=== PATIENT | male | born 1965 | race Two or more races ===

== ENCOUNTER 2020-09-26 19:55 | Emergency (ER) | payer MEDICARE, MEDICAID, SELFPAY ==
[2020-09-26 20:06] VITALS: BP 170/85; PULSE 63; RESP 20; TEMP 37.1; O2SAT 96; BMI 43.0
--- NOTE | 2020-09-26 21:11 | ED_ITS ---
HPI - Fall General Chief Complaint: Fall Stated Complaint: Fall Time Seen by Provider: 09/26/20 21:11 Mode of arrival: ambulatory Limitations: no limitations History of Present Illness HPI Narrative: Patient mentally challenged from residential with chronic back problems tripped on recliner and fell 3 hours ago landed on his right shoulder hitting his forehead to the ground no loss of consciousness able to move his right arm brought here a medical checkup MD complaint: fall Onset (ago): hour(s) (3) Fall from: standing Fall witnessed: yes, by living facility staff Place fall occurred: home Loss of consciousness: none Symptoms prior to fall: none Context: tripped/slipped Location of injury: head Location of injury - extremities: right: shoulder Severity: mild Quality: dull Associated symptoms (after fall): denies Related Data Previous Rx's Medication Instructions Recorded mirabegron 50 mg tablet,extended 50 mg PO DAILY #28 tab 08/30/20 release 24 hr Allergies Allergy/AdvReac Type Severity Reaction Status Date / Time No Known Allergies Allergy Unverified 06/23/20 15:09 [No Known Allergies*] Review of Systems Review of Systems: Yes all other systems are reviewed and are negative [facility] Past Medical History Medical History Diabetes mellitus type 1 Hypertension Social History Social History Alcohol intake: unknown Smoking Status: Smoker, status unknown Last Used Substance: Unknown Advance Directives: No Advance Directives Information Provided: No Physical Exam Vital Signs: Vital Signs: Last Vital Signs Temp 98.8 F 09/26/20 20:06 Pulse 63 09/26/20 20:06 Resp 20 09/26/20 20:06 BP 170/85 H 09/26/20 20:06 Pulse Ox 96 09/26/20 20:06 Body Mass Index 43.0 Appearance: Alert. Oriented X2 slow to response. No acute distress. Eyes: Pupils equal, round and reactive to light. ENT: Pharynx normal. Small abrasion on right side of forehead Neck: Normal inspection. Neck supple. No midline tenderness CVS: Normal heart rate and rhythm. Pulses normal. Respiratory: No respiratory distress. Breath sounds normal. Abdomen: Soft and nontender. Bowel sounds are present, no mass palpable, no CVA tenderness Skin: Skin warm and dry. Normal skin color. Normal skin turgor. back: No thoracolumbar tenderness patient able to stand up taking few short step as usual Extremities: No lower extremity edema. Right shoulder good range of movement soft tissue tenderness at the deltoid area neurovascular intact Neuro: Oriented X 3. No motor deficit. No sensory deficit. MDM - Fall MDM Narrative Medical decision making narrative: Patient with minor injuries to the right shoulder clinically no fracture x-ray negative for fracture discharge patient back to residential Lab Data Attestation: I reviewed the patient's lab results. Labs: Lab Results 09/26/20 Range/Units 22:08 POC Glucose 105 (60-115) mg/dL Discharge Plan Discharge Clinical Impression: Contusion of right shoulder Patient Disposition: Home, Self-Care Instructions: Contusion in Adults (ED) Additional Instructions: Apply ice take ibuprofen for pain as needed Prescriptions: No Action mirabegron [Myrbetriq] 50 mg tablet extended release 24 hr 50 mg PO DAILY Qty: 28 RF: 3 Interventions: ED Discharge Assessment Last Done: 09/26/20 22:26 Discharge Date/Time: 09/26/20 22:28
--- NOTE | 2020-09-26 21:37 | XR_ITS ---
EXAMINATION: XR SHOULDER, RIGHT CLINICAL INFORMATION: Fall. COMPARISON: None TECHNIQUE: Three views of the right shoulder. FINDINGS: The bones and soft tissues are normal. No fracture. Glenohumeral and acromioclavicular alignment is anatomic with normal joint space. No abnormal soft tissue calcifications. XR/XR shoulder RT min 2V IMPRESSION: Normal right shoulder.
[2020-09-26] MEDS: Ibuprofen 600 MG TABLET PO (22:03)
[2020-09-26 22:13] LABS: Glucose, Whole Blood 105 mg/dL (60-115)
== END 2020-09-26 22:28 | disposition home or self-care (01) ==
PROVIDERS: Emergency Provider Internal Medicine; PCP Family Medicine
DX: S40.011A Contusion of right shoulder, initial encounter (principal); W01.198A Fall on same level from slipping, tripping and stumbling with subsequent striking against other object, initial encounter; E10.8 Type 1 diabetes mellitus with unspecified complications; I10 Essential (primary) hypertension; Y93.9 Activity, unspecified; Y92.049 Unspecified place in boarding-house as the place of occurrence of the external cause; Y99.9 Unspecified external cause status
CPT/HCPCS: 73030; 82947; 99284

== ENCOUNTER 2021-03-26 12:12 | Emergency (ER) | payer MEDICARE, MEDICAID, SELFPAY ==
--- NOTE | ~2021-03-26 | XR_ITS ---
EXAMINATION: XR LUMBAR SPINE XR SACRUM AND COCCYX CLINICAL INFORMATION: Injury. COMPARISON: None TECHNIQUE: Lumbar spine, 3 views Sacrum and coccyx, 2 views FINDINGS: LUMBAR SPINE: There are six nonrib-bearing lumbar vertebra. The lowest vertebral body is considered L5 for this report. Multilevel facet arthropathy of the lumbar spine. Prior placement of transpedicular screws and posterior fusion rods at the L4-L5 level. No osteolysis around the hardware. Chronic grade 1 anterolisthesis of L4 on L5. The vertebral body heights are normal. Multilevel degenerative disc space narrowing of the lumbar spine. SACRUM AND COCCYX: Sacral ala, foramina and sacroiliac joints are intact. No evidence of sacral or coccygeal fracture. XR/XR sacrum coccyx min 2V IMPRESSION: * No acute traumatic pathology in the lumbar spine, sacrum or coccyx. * Chronic multilevel facet arthropathy and discovertebral degenerative changes of lumbar spine. * Intact posterior fusion hardware is noted at the L4-L5 level, and there is chronic grade 1 anterolisthesis of L4 on L5.
--- NOTE | ~2021-03-26 | XR_ITS ---
EXAMINATION: XR LUMBAR SPINE XR SACRUM AND COCCYX CLINICAL INFORMATION: Injury. COMPARISON: None TECHNIQUE: Lumbar spine, 3 views Sacrum and coccyx, 2 views FINDINGS: LUMBAR SPINE: There are six nonrib-bearing lumbar vertebra. The lowest vertebral body is considered L5 for this report. Multilevel facet arthropathy of the lumbar spine. Prior placement of transpedicular screws and posterior fusion rods at the L4-L5 level. No osteolysis around the hardware. Chronic grade 1 anterolisthesis of L4 on L5. The vertebral body heights are normal. Multilevel degenerative disc space narrowing of the lumbar spine. SACRUM AND COCCYX: Sacral ala, foramina and sacroiliac joints are intact. No evidence of sacral or coccygeal fracture. XR/XR lumbar spine 2-3V IMPRESSION: * No acute traumatic pathology in the lumbar spine, sacrum or coccyx. * Chronic multilevel facet arthropathy and discovertebral degenerative changes of lumbar spine. * Intact posterior fusion hardware is noted at the L4-L5 level, and there is chronic grade 1 anterolisthesis of L4 on L5.
[2021-03-26 12:21] VITALS: BP 160/77; BP 170/90; PULSE 60; PULSE 64; RESP 16; TEMP 36.9; O2SAT 96; BMI 36.9
--- NOTE | 2021-03-26 12:31 | ED.BACK ---
HPI - Back Pain/Injury General Chief Complaint: Back Pain/Injury Stated Complaint: BACK PAIN S/P FALL SATURDAY Time Seen by Provider: 03/26/21 12:31 History of Present Illness HPI Narrative: Patient complains of low back pain after a fall several days ago where he slipped and fell from a standing position onto his back, pain is worse today, patient lives in a [place] [facility] and is accompanied by staff member, there is no weakness no incontinence no radiation of pain, no other injury from the fall no headache no neck pain no extremity injury He uses a walker at baseline and staff says he has not lost any mobility and is ambulating normal for him Related Data Previous Rx's Medication Instructions Recorded mirabegron 50 mg tablet,extended 50 mg PO DAILY 90 Days #90 tab 01/18/21 release 24 hr oxybutynin chloride 15 mg 15 mg PO BID 90 Days #180 tab 02/15/21 tablet,extended release 24 hr acetaminophen 1,000 mg PO QID PRN #30 tab 03/26/21 ibuprofen 600 mg PO Q6H PRN #20 tab 03/26/21 lidocaine 1 patch TOPICAL DAILY PRN 5 Days 03/26/21 #15 ea Allergies Allergy/AdvReac Type Severity Reaction Status Date / Time No Known Allergies Allergy Unverified 06/23/20 15:09 [No Known Allergies*] Review of Systems Review of Systems: Positive for back pain negatives are no fever no chills no dizziness no weakness no fainting no feeling faint no headache no neck pain no numbness weakness or tingling no incontinence no radiation of pain no changes to bowel or bladder no dysuria no chest pain no abdominal pain no rash Yes all other systems are reviewed and are negative [facility] Past Medical History Source: nursing notes reviewed Medical History Diabetes mellitus type 1 Hypertension Social History Social History Alcohol intake: unknown Advance Directives: No Advance Directives Information Provided: No Physical Exam Vital Signs: Vital Signs: Last Vital Signs Temp 98.4 F 03/26/21 12:21 Pulse 60 03/26/21 12:21 Resp 16 03/26/21 12:21 BP 160/77 H 03/26/21 12:21 Pulse Ox 96 03/26/21 12:21 Body Mass Index 36.9 General appearance is no acute distress Head is normocephalic atraumatic Neck is supple and nontender Chest wall nontender The back there is lower lumbar tenderness including the midline as well as bilateral soft tissue tenderness, no ecchymosis no rash no deformity no CVA tenderness Extremities no tenderness swelling or deformity Neuro no gross motor or sensory deficit, gait was tested with his walker and is able to get out of bed and ambulate to the bathroom comfortably with his walker Course Course Course Narrative: Lumbar spine and coccyx x-rays were negative but did show some arthritis The patient was observed ambulating to the bathroom and his senior clinical data coordinator from the [place] [facility] says this is his baseline and now he normally ambulates He is discharged back to the [place] [facility] with treatment for musculoskeletal pain Discharge Plan Discharge Clinical Impression: Strain of lumbar region Patient Disposition: Home, Self-Care Additional Instructions: I wrote for Tylenol and Motrin for basic pain control along with a lidocaine patch Follow with primary doctor Return to the ER any time any worse condition or any concerns X-rays did show some arthritis but no broken bone or new injury to the bones Prescriptions: New acetaminophen 500 mg tablet 1,000 mg PO QID PRN (Reason: pain) Qty: 30 RF: 0 ibuprofen 600 mg tablet 600 mg PO Q6H PRN (Reason: pain) Qty: 20 RF: 0 lidocaine 5 % adhesive patch,medicated 1 patch topical DAILY PRN (Reason: pain) 5 Days Qty: 15 RF: 0 No Action Myrbetriq 50 mg tablet extended release 24 hr 50 mg PO DAILY 90 Days Qty: 90 RF: 2 oxybutynin chloride 15 mg tablet extended release 24 hr 15 mg PO BID 90 Days Qty: 180 RF: 2
[2021-03-26] MEDS: Acetaminophen 325 MG TABLET 975 MG PO (14:09)
[2021-03-26] MEDS: Ketorolac Tromethamine 30 MG/ML VIAL IM (14:10)
== END 2021-03-26 14:15 | disposition home or self-care (01) ==
PROVIDERS: Emergency Provider Emergency Medicine; PCP Family Medicine
DX: S39.012A Strain of muscle, fascia and tendon of lower back, initial encounter (principal); E10.9 Type 1 diabetes mellitus without complications; I10 Essential (primary) hypertension; W01.0XXA Fall on same level from slipping, tripping and stumbling without subsequent striking against object, initial encounter; Y93.9 Activity, unspecified; Y92.89 Other specified places as the place of occurrence of the external cause; Y99.9 Unspecified external cause status
CPT/HCPCS: 72100; 72220; 96372; 99283; 99284; J1885

== ENCOUNTER → 2021-04-13 09:53 | Outpatient (BNVA) | payer MEDICARE, MEDICAID, SELFPAY | PROVIDERS: PCP Family Medicine; Visit Provider Urology | DX: N39.41 Urge incontinence (principal); N32.0 Bladder-neck obstruction | CPT/HCPCS: 99212 ==

== ENCOUNTER → 2021-06-30 12:36 | Outpatient (BNVA) | payer MEDICARE, MEDICAID, SELFPAY | PROVIDERS: PCP Family Medicine; Visit Provider Dietitian, Registered | DX: E66.9 Obesity, unspecified (principal) | CPT/HCPCS: 97803 ==

== ENCOUNTER 2021-07-15 18:52 | Emergency (ER) | payer MEDICARE, MEDICAID, SELFPAY ==
--- NOTE | ~2021-07-15 | US_ITS ---
EXAMINATION: US SCROTUM CLINICAL INFORMATION: Left testicle pain. COMPARISON: None TECHNIQUE: A sonogram of the scrotum was performed assessing medina-scale appearance and color Doppler flow. Spectral Doppler analysis of the arterial and venous flow were performed in the testes bilaterally. FINDINGS: RIGHT: Right testicle measures 3.7 x 1.8 x 2.1 cm, volume 7.5 mL. No focal testicular parenchymal lesions are visualized. Spectral Doppler analysis of the arterial and venous flow is normal in the right testis. Right epididymal head is normal in size. No right hydrocele or varicocele is seen. Right epididymal Doppler flow is normal. LEFT: Left testicle measures 3.3 x 1.7 x 2.1 cm, volume 6 mL. No focal testicular parenchymal lesions are visualized. Spectral Doppler analysis of the arterial and venous flow is normal in the left testis. Left epididymal head is normal in size. No left hydrocele or varicocele is seen. Left epididymal Doppler flow is normal. US/US scrotum doppler IMPRESSION: Unremarkable ultrasound of the testes.
--- NOTE | ~2021-07-15 | US_ITS ---
EXAMINATION: US SCROTUM CLINICAL INFORMATION: Left testicle pain. COMPARISON: None TECHNIQUE: A sonogram of the scrotum was performed assessing medina-scale appearance and color Doppler flow. Spectral Doppler analysis of the arterial and venous flow were performed in the testes bilaterally. FINDINGS: RIGHT: Right testicle measures 3.7 x 1.8 x 2.1 cm, volume 7.5 mL. No focal testicular parenchymal lesions are visualized. Spectral Doppler analysis of the arterial and venous flow is normal in the right testis. Right epididymal head is normal in size. No right hydrocele or varicocele is seen. Right epididymal Doppler flow is normal. LEFT: Left testicle measures 3.3 x 1.7 x 2.1 cm, volume 6 mL. No focal testicular parenchymal lesions are visualized. Spectral Doppler analysis of the arterial and venous flow is normal in the left testis. Left epididymal head is normal in size. No left hydrocele or varicocele is seen. Left epididymal Doppler flow is normal. US/US scrotum IMPRESSION: Unremarkable ultrasound of the testes.
[2021-07-15 19:08] VITALS: BP 155/77; PULSE 66
--- NOTE | 2021-07-15 19:20 | ED.GENADULT ---
HPI - General Adult General Chief complaint: Fall Stated complaint: GENITAL PAIN S/P FALL,-LOC Time Seen by Provider: 07/15/21 19:05 Source: patient and other (assisted staff member) Mode of arrival: ambulatory Limitations: no limitations History of Present Illness HPI narrative: 55-year-old male with history of developmental delay who lives in a intermediate who presents emergency department for evaluation of left testicular pain. The patient states that the pain started this evening but cannot give me an exact time. He describes the pain as sharp, constant and severe, he points to his left testicle when asked to localize the pain. Apparently the pain was very severe when he was at the intermediate and this caused him the lie down on the floor. The patient denies falling. He denies frequency, urgency or dysuria. He denies fever or chills. According to the intermediate member, the patient has not complained of testicular pain in the past. Related Data Home Medications Medication Instructions Recorded Confirmed blood sugar diagnostic #10 ea 04/13/21 Previous Rx's Medication Instructions Recorded mirabegron 50 mg tablet,extended 50 mg PO DAILY 90 Days #90 tab 01/18/21 release 24 hr (Myrbetriq) oxybutynin chloride 15 mg 15 mg PO BID 90 Days #180 tab 02/15/21 tablet,extended release 24 hr acetaminophen 500 mg tablet 1,000 mg PO QID PRN #30 tab 03/26/21 ibuprofen 600 mg tablet 600 mg PO Q6H PRN #20 tab 03/26/21 lidocaine 5 % topical patch 1 patch TOPICAL DAILY PRN 5 Days 03/26/21 #15 ea tamsulosin 0.4 mg capsule 0.4 mg PO BEDTIME 90 Days #90 cap 04/13/21 doxycycline hyclate 100 mg tablet 100 mg PO Q12H 10 Days #20 tab 07/15/21 ibuprofen 600 mg tablet 600 mg PO Q6H PRN #30 tab 07/15/21 Allergies Allergy/AdvReac Type Severity Reaction Status Date / Time No Known Allergies Allergy Verified 07/15/21 19:52 [No Known Allergies*] Review of Systems Review of Systems: Yes all other systems are reviewed and are negative PMFSH Past Medical History PMFSH Narrative: Social history: Patient denies tobacco, alcohol and drug use. The patient lives in a intermediate. Medical History Diabetes mellitus type 1 Hypertension Social History Social History Alcohol intake: unknown Advance Directives: No Advance Directives Information Provided: No Physical Exam Vital Signs: Vital Signs: Last Vital Signs Temp 98.7 F 07/15/21 19:46 Pulse 60 07/15/21 19:46 Resp 16 07/15/21 19:46 BP 133/81 07/15/21 19:46 Pulse Ox 99 07/15/21 19:46 Const: General: cooperative and no acute distress Orientation/consciousness: oriented to person and oriented to place Limitations: no limitations HENMT: Head: Yes normal to inspection, Yes normocephalic and Yes atraumatic Ears: external ears normal General nose exam: Normal external nose present Face and sinus: Yes normal facial exam Mouth: Normal oral and palatal mucosa present Throat: Yes posterior oropharynx normal Eyes: General: appearance normal, both eyes and all related structures Pupils: Equal, round and reactive pupils present Neck: Neck: Yes normal visual inspection, Yes no lymphadenopathy, Yes trachea midline and Yes supple Chest: Chest palpation & inspection: normal inspection of the chest and normal palpation of entire chest wall Resp: Effort & Inspection: normal respiratory effort and able to speak in complete sentences Auscultation: clear to auscultation bilaterally Cardio: Rate: regular rate Rhythm: regular rhythm Heart sounds: S1 normal heart sound present, S2 normal heart sound present and no murmurs GI: Inspection: Yes normal to inspection Palpation (GI): Soft to palpation, nontender and no guarding Auscultation: normal bowel sounds : Other: The patient has a small penis and very small testicles bilaterally. The patient does have significant tenderness to palpation of the left testicle, there is no erythema or increased warmth over the scrotum. Patient does have some intertriginous erythema which is bilaterally symmetric. There is no discharge noted from the patient's penile meatus. Patient is uncircumcised. Skin: General skin exam: no rashes or lesions noted Neuro: General: oriented to person and oriented to place Cranial nerves: Yes CN's II-XII intact bilaterally and Yes Equal, round and reactive pupils present Cognition (Neuro): normal cognition Motor exam (neuro): 5/5 motor strength present throughout Extrem: General: Yes normal to inspection Psych: Appearance: grossly normal Speech and movement: Normal speech and movement present Affect: normal affect Attitude: cooperative Thought process: Normal thought process present Thought content: Normal thought content present Course Course Course Narrative: 55-year-old male with developmental delay who lives in a intermediate who presents emergency department for evaluation of sudden onset of left testicular pain. Patient's physical examination did reveal a small penis and small testicles bilaterally, patient does have significant tenderness palpation his left testicle. The differential includes but is not limited to testicular torsion, orchitis, epididymitis, urinary tract infection. Urinalysis was ordered. Testicular and scrotal ultrasound will be obtained. Patient's pain was treated with ibuprofen 600 mg orally. 2051: The patient got minimal relief of his left testicular pain from oral ibuprofen. The patient was ordered to get Tylenol 975 mg orally. The duplex ultrasound did not reveal any evidence for testicular torsion. Given the patient's tenderness and concerned that he might orchitis. The patient will be treated ceftriaxone 500 mg IM and doxycycline 100 mg twice a day for 10 days. Patient will also be treated with ibuprofen 600 mg 3 times a day as needed for pain. Patient was discharged home in the care of his intermediate staff member. Discharge Plan Discharge Clinical Impression: Acute orchitis, Left testicular pain Patient Disposition: Home, Self-Care Instructions: Orchitis (ED) Additional Instructions: Your duplex ultrasound of the testicle revealed no evidence for torsion (twisting of the testicles). Your left testicle was very tender to palpation, this suggests that you have a testicular infection. You received ceftriaxone 500 mg IM. You also received doxycycline 100 mg orally. Take doxycycline 100 mg twice a day for 10 days, this will treat an infection of your testicle. Take Motrin ( ibuprofen) 600 mg pills, 1 pill every 6 hours as needed. Follow-up with your doctor in 2 days. Please return to the emergency department if your symptoms get worse or if you develop any symptoms that are concerning to you. Prescriptions: New ibuprofen 600 mg tablet 600 mg PO Q6H PRN (Reason: pain) Qty: 30 RF: 0 doxycycline hyclate 100 mg tablet 100 mg PO Q12H 10 Days Qty: 20 RF: 0 No Action Myrbetriq 50 mg tablet extended release 24 hr 50 mg PO DAILY 90 Days Qty: 90 RF: 2 oxybutynin chloride 15 mg tablet extended release 24 hr 15 mg PO BID 90 Days Qty: 180 RF: 2 acetaminophen 500 mg tablet 1,000 mg PO QID PRN (Reason: pain) Qty: 30 RF: 0 ibuprofen 600 mg tablet 600 mg PO Q6H PRN (Reason: pain) Qty: 20 RF: 0 lidocaine 5 % adhesive patch,medicated 1 patch topical DAILY PRN (Reason: pain) 5 Days Qty: 15 RF: 0 tamsulosin 0.4 mg capsule 0.4 mg PO BEDTIME 90 Days Qty: 90 RF: 1
[2021-07-15 19:46] VITALS: BP 133/81; PULSE 60; RESP 16; TEMP 37.1; O2SAT 99
[2021-07-15] MEDS: Ibuprofen 600 MG TABLET PO (19:51)
--- NOTE | 2021-07-15 19:53 | PC.NURSE ---
Pt resting on stretcher in NAD, breathing with ease on RA, VSS. Pt aaox4, senior living staff member, Holden, at bedside. Pt report 10/10 L testicular pain. Pt offers no additional complaints at this time. Pt medicated per DEC with ibuprofen. Pt to US at this time. This RN to order UA per Dr Harris's recommendation. Pt agreeable to plan.
--- NOTE | 2021-07-15 20:58 | PC.NURSE ---
Per Dr Harris, pt does not need UA
[2021-07-15] MEDS: cefTRIAXone sodium 500 MG, Lidocaine HCl 1 % MPF 1 ML IM (21:07)
[2021-07-15] MEDS: Acetaminophen 325 MG TABLET 975 MG PO (21:08)
[2021-07-15 21:22] VITALS: BP 132/87; PULSE 58; RESP 16; O2SAT 98
== END 2021-07-15 21:28 | disposition home or self-care (01) ==
PROVIDERS: Emergency Provider Emergency Medicine Emergency Medical Services
DX: N45.2 Orchitis (principal); N50.812 Left testicular pain; R62.50 Unspecified lack of expected normal physiological development in childhood; Z79.899 Other long term (current) drug therapy
CPT/HCPCS: 76870; 93975; 99284; J0696

== ENCOUNTER → 2021-10-31 11:37 | Outpatient (BNVA) | payer MEDICARE, MEDICAID, SELFPAY | PROVIDERS: PCP Family Medicine; Visit Provider Dietitian, Registered | DX: E66.9 Obesity, unspecified (principal); E10.9 Type 1 diabetes mellitus without complications | CPT/HCPCS: 97803 ==

== ENCOUNTER 2022-01-24 21:43 | Emergency (ER) | payer MEDICARE, MEDICAID, SELFPAY ==
[2022-01-24 22:06] VITALS: BP 118/76; PULSE 53; RESP 18; TEMP 36.7; O2SAT 100; BMI 27.4
--- NOTE | 2022-01-24 22:29 | ED.FALL ---
HPI - Fall General Chief Complaint: Fall Stated Complaint: fell off shower chair in the shower Time Seen by Provider: 01/24/22 22:20 Source: patient and other (Staff member) Mode of arrival: ambulatory Limitations: no limitations History of Present Illness HPI Narrative: 56-year-old male who lives in a skilled nursing who was brought to emergency department for evaluation of injuries from a fall. Information mainly comes from the staff member knows the patient well. Staff member states that she was assisting the patient with showering this morning at 06:30 hours. The patient was sitting in a shower chair and he accidentally had a bowel movement. The patient turned to look at the bowel movement and slipped out of the chair landing onto the shower floor. He then tried to get up and slipped the 2nd time. The patient has no complaints this time. His group staff member states that he was doing fine however as per the skilled nursing routine, the patient needs to be evaluated secondary to his fall. Related Data Home Medications Medication Instructions Recorded Confirmed blood sugar diagnostic #10 ea 04/13/21 Previous Rx's Medication Instructions Recorded acetaminophen 500 mg tablet 1,000 mg PO QID PRN #30 tab 03/26/21 ibuprofen 600 mg tablet 600 mg PO Q6H PRN #20 tab 03/26/21 lidocaine 5 % topical patch 1 patch TOPICAL DAILY PRN 5 Days 03/26/21 #15 ea doxycycline hyclate 100 mg tablet 100 mg PO Q12H 10 Days #20 tab 07/15/21 ibuprofen 600 mg tablet 600 mg PO Q6H PRN #30 tab 07/15/21 mirabegron 50 mg tablet,extended 50 mg PO DAILY 90 Days #90 tab 08/29/21 release 24 hr (Myrbetriq) tamsulosin 0.4 mg capsule 0.4 mg PO BEDTIME 90 Days #90 cap 08/29/21 oxybutynin chloride 15 mg 15 mg PO BID 90 Days #180 tab 10/26/21 tablet,extended release 24 hr Allergies Allergy/AdvReac Type Severity Reaction Status Date / Time No Known Allergies Allergy Verified 07/15/21 19:52 [No Known Allergies*] Review of Systems Review of Systems: Yes all other systems are reviewed and are negative PMFSH Past Medical History PMFSH Narrative: Social history: The patient lives in a skilled nursing. He denies tobacco, alcohol and drug use. Medical History Diabetes mellitus type 1 Hypertension Social History Social History Alcohol intake: unknown Advance Directives: No Advance Directives Information Provided: No Physical Exam Vital Signs: Vital Signs: Last Vital Signs Temp 98.1 F 01/24/22 22:06 Pulse 53 01/24/22 22:06 Resp 18 01/24/22 22:06 BP 118/76 01/24/22 22:06 Pulse Ox 100 01/24/22 22:06 BMI result Body Mass Index 27.4 Const: Other: Very pleasant and cooperative male patient, does not appear to be in distress, has no complaints. HEENT: Head: Yes normal to inspection, Yes normocephalic and Yes atraumatic Ears: external ears normal General nose exam: Normal external nose present Face and sinus: Yes normal facial exam Mouth: Normal oral and palatal mucosa present Throat: Yes posterior oropharynx normal Eyes: General: appearance normal, both eyes and all related structures Pupils: Equal, round and reactive pupils present Neck: Neck: Yes normal visual inspection, Yes no lymphadenopathy, Yes trachea midline and Yes supple Chest: Chest palpation & inspection: normal inspection of the chest and normal palpation of entire chest wall Resp: Effort & Inspection: normal respiratory effort and able to speak in complete sentences Auscultation: clear to auscultation bilaterally Cardio: Rate: regular rate Rhythm: regular rhythm Heart sounds: S1 normal heart sound present, S2 normal heart sound present and no murmurs GI: Inspection: Yes normal to inspection Palpation (GI): Soft to palpation, nontender and no guarding Auscultation: normal bowel sounds : General: Yes no CVA tenderness Back/Spine/Pelvis: Back: no CVA tenderness Skin: General skin exam: no rashes or lesions noted Neuro: Cranial nerves: Yes CN's II-XII intact bilaterally and Yes Equal, round and reactive pupils present Cognition (Neuro): normal cognition Motor exam (neuro): 5/5 motor strength present throughout Extrem: General: Yes normal to inspection Psych: Thought process: Normal thought process present Thought content: Normal thought content present Course Course Course Narrative: 56-year-old male who was brought to emergency department by skilled nursing staff member for evaluation of a fall that occurred this morning at 06:30 hours. The patient was being assisted in the shower and was sitting on a shower chair when he slipped off the chair and landed on the shower floor. He then got up and fell on the shower floor 2nd time. The patient has had no complaints since the injury. His physical examination was unremarkable. At this time I do not think that he needs any x-rays or further testing. The patient will be discharged back to his skilled nursing in the care of the skilled nursing staff member. Discharge Plan Discharge Clinical Impression: Fall Qualifiers: Encounter type: initial encounter Qualified Code(s): W19.XXXA - Unspecified fall, initial encounter Patient Disposition: Home, Self-Care Additional Instructions: Your examination is normal, I do not think that you had any significant injury from your fall today. Continue taking your medications as prescribed by your doctor. Follow-up with your doctor in 2 days. Please return to the emergency department if your symptoms get worse or if you develop any symptoms that are concerning to you. Prescriptions: No Action Myrbetriq 50 mg tablet extended release 24 hr 50 mg PO DAILY 90 Days Qty: 90 2RF tamsulosin 0.4 mg capsule 0.4 mg PO BEDTIME 90 Days Qty: 90 1RF oxybutynin chloride 15 mg tablet extended release 24 hr 15 mg PO BID 90 Days Qty: 180 1RF acetaminophen 500 mg tablet 1,000 mg PO QID PRN (Reason: pain) Qty: 30 0RF ibuprofen 600 mg tablet 600 mg PO Q6H PRN (Reason: pain) Qty: 20 0RF lidocaine 5 % adhesive patch,medicated 1 patch topical DAILY PRN (Reason: pain) 5 Days Qty: 15 0RF Rx Instructions: leave on most painful area for up to 12 hrs ibuprofen 600 mg tablet 600 mg PO Q6H PRN (Reason: pain) Qty: 30 0RF doxycycline hyclate 100 mg tablet 100 mg PO Q12H 10 Days Qty: 20 0RF
== END 2022-01-24 22:46 | disposition home or self-care (01) ==
PROVIDERS: Emergency Provider Emergency Medicine Emergency Medical Services
DX: Z04.3 Encounter for examination and observation following other accident (principal); E10.9 Type 1 diabetes mellitus without complications; I10 Essential (primary) hypertension; Z91.81 History of falling
CPT/HCPCS: 99282; 99283

== ENCOUNTER → 2022-06-29 15:43 | Outpatient (BNVA) | payer MEDICARE, MEDICAID, SELFPAY | PROVIDERS: PCP Family Medicine; Visit Provider Urology | DX: N39.41 Urge incontinence (principal); N32.0 Bladder-neck obstruction | CPT/HCPCS: 99212 ==

== ENCOUNTER 2023-04-12 13:22 | Emergency (ER) | payer MEDICARE, MEDICAID, SELFPAY ==
--- NOTE | 2023-04-12 13:24 | ED_ITS ---
HPI - General Adult General Chief complaint: Extremity Injury, Lower Stated complaint: 04/12 fell/ R knee pain Time Seen by Provider: 04/12/23 14:06 Source: patient Mode of arrival: ambulatory Limitations: no limitations History of Present Illness HPI narrative: 57 yold male presents to the ED for right knee pain after falling in [facility]. patient states he slipped on his shoe which caused him to fall unto his right knee. patient denies hitting head or loss of consciiousness. patient denies any other complaints. long-term health aide corroborates story Related Data Home Medications Medication Instructions Recorded Confirmed blood sugar diagnostic #10 ea 04/13/21 06/29/22 benazepril 40 mg tablet 40 mg PO DAILY 06/28/22 06/29/22 fluoxetine 10 mg capsule 0 mg PO 06/29/22 06/29/22 lancets 28 gauge (Prodigy Twist #100 ea 06/29/22 06/29/22 Top Lancet) levothyroxine 125 mcg tablet 125 mcg PO DAILY 06/29/22 06/29/22 loratadine 10 mg tablet 10 mg PO DAILY 06/29/22 06/29/22 nystatin 100,000 unit/gram topical topical 06/29/22 06/29/22 powder (Nystop) topiramate 25 mg tablet 25 mg PO BID 06/29/22 06/29/22 Previous Rx's Medication Instructions Recorded acetaminophen 500 mg tablet 1,000 mg PO QID PRN pain #30 tabs 03/26/21 ibuprofen 600 mg tablet 600 mg PO Q6H PRN pain #20 tabs 03/26/21 lidocaine 5 % topical patch 1 patch topical DAILY PRN pain 5 03/26/21 days #15 ea doxycycline hyclate 100 mg tablet 100 mg PO Q12H 10 days #20 tabs 07/15/21 ibuprofen 600 mg tablet 600 mg PO Q6H PRN pain #30 tabs 07/15/21 tamsulosin 0.4 mg capsule 0.4 mg PO BEDTIME 90 days #90 caps 08/10/22 oxybutynin chloride 15 mg 15 mg PO BID 30 days #60 tabs 11/20/22 tablet,extended release 24 hr oxycodone 5 mg capsule 5 mg PO TID PRN pain 3 days #9 caps 04/12/23 Allergies Allergy/AdvReac Type Severity Reaction Status Date / Time No Known Allergies Allergy Verified 04/12/23 13:25 [No Known Allergies*] Review of Systems Review of Systems: Right knee pain Yes all other systems are reviewed and are negative [facility] Past Medical History Medical History Diabetes mellitus type 1 Hypertension Social History Social History Alcohol intake: unknown Advance Directives: Yes Advance Directives Information Provided: Yes Advance Directives on File: No Physical Exam ED Vital Signs: Vital Signs - 24 hr 04/12/23 13:25 04/12/23 15:39 Temperature 98 F 98 F Pulse Rate 61 60 Respiratory Rate 15 18 Blood Pressure 141/70 H 188/82 H Pulse Oximetry 97 99 Oxygen Delivery Method Room Air Room Air BMI result Body Mass Index 38.3 Const General: cooperative, healthy appearing, comfortable, no acute distress, well developed, alert, awake and Physically active Orientation/consciousness: oriented to person, oriented to place, oriented to time and patient oriented x3 HENMT Head: Yes normal to inspection, Yes No palpable skull fracture present, Yes normocephalic, Yes atraumatic and No abrasion Ears: hearing grossly normal bilaterally, external ears normal, TM's normal bilaterally, TM normal on the right, TM normal on the left, EAC's normal, mastoids normal and no periauricular adenopathy Eyes General: appearance normal, both eyes and all related structures Neck Neck: Yes normal visual inspection, Yes full ROM, Yes no lymphadenopathy, Yes no meningeal signs, Yes trachea midline, Yes supple, No anterior neck swelling and No tender Chest Chest palpation & inspection: normal inspection of the chest and normal palpation of entire chest wall Resp Effort & Inspection: normal respiratory effort and able to speak in complete sentences Auscultation: clear to auscultation bilaterally Cardio Jugular venous distension: no JVD Heart sounds: S1 normal heart sound present and S2 normal heart sound present GI Inspection: Yes normal to inspection and No abdominal wall ecchymosis Palpation (GI): Soft to palpation, not firm, nontender, no guarding and not rigid General: No CVA tenderness and Yes no CVA tenderness Back/Spine/Pelvis Back: no CVA tenderness, No CVA tenderness and No back tenderness Skin General skin exam: no rashes or lesions noted and elasticity normal Neuro Other: Patient is at baseline mentally General: oriented to person, oriented to place, oriented to time, patient oriented x3, tone normal, moves all extremities, Normal light touch and pain sensation, no meningeal signs, no focal motor deficits, CN's II-XI intact bilaterally and normal sensation to monofilament Extrem General: Yes normal to inspection and Yes full ROM Knee images: 1. positive for ecchyomosis and tenderness. Negative for any redness, swelling, deformity, or stiffenss. Rest of extremity normal. motor, neuro, and vascular exam is intact. Psych Appearance: grossly normal, well kempt and not disheveled Course Course Course Narrative: Patient is a 57 year old male with a history of urinary incontinence, right knee replacement, and obesity presenting post fall. 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 Patient has been experiencing some instability with walking and pain. Patient is not on blood thinners. Patient arrived to triage in a wheelchair. Plan: Imaging Medications Administered Discontinued Medications Generic Name Dose Route Start Last Admin Trade Name Freq PRN Reason Stop Dose Admin Oxycodone HCl 5 mg 04/12/23 19:07 04/12/23 19:12 Oxycodone Hcl Immed Release 5 Mg Tablet PO 04/12/23 19:08 5 mg ONCE ONE Administration Medical Decision Making Medical Decision Making [facility] Narrative: 57 yold male brought to the ED for right knee pain after falling onto right knee which was witnessed. Patient denies hitting head or any loss of consciousness. Patient denies any other complaints. Right knee x-ray shows tibial plateau fracture. Case discussed with orthopedic surgeon SULEMAN Garcia recommend CT scan and the brace. CT scan confirms tibial plateau fracture. Suleman robbins will follow-up as outpatient. Patient discharged with pain medication. Patient and [facility] health aide recommend on non weight-bearing. Patient cannot use crutches so patient will be placed on wheelchair and they were informed to elevate patient's leg off the ground. Differential Diagnosis Differential Diagnoses: The differential diagnosis associated with the presentation includes ( Knee fracture, knee dislocation, septic joint, hematoma,) Admission/Observation Consideration of admission/observation: Escalation of care including admission/observation considered Consult Healthcare Provider Management of the patient was discussed with: Help Desk Team Leader ([facility] SULEMAN) Independent Interpretation I performed an independent interpretation of an: Plain X-Ray and CT Scan Radiology Impression Discussion of test interpretation with radiology: I have reviewed the radiologist's reading. Independent Historian Clinical information obtained from an independent historian. History obtained from or confirmed by: Other (long-term health Aide ) External Record Review External record reviewed: Other (long-term notes) Prescription Management I considered prescription management with: Pain Medication Chronic Conditions MIld Mental Development Dealay Discharge Plan Discharge Clinical Impression: Fracture of tibial plateau Patient Disposition: Home, Self-Care Instructions: Patellar Fracture (ED) Additional Instructions: return to the ED immediately for worsening pain, swelling, redness, bluish black discoloration, numbness /tingling, fever, chills, chest pain, shortness of breath, or any other concerning symptoms. Patient should not walk or bear any weight on right lower extremity. You will need to follow-up with orthopedic milan rgeon Prescriptions: New oxycodone 5 mg capsule 5 mg PO TID PRN (Reason: pain) 3 Days Qty: 9 0RF Rx Instructions: Partial Fill upon patient request. No Action tamsulosin 0.4 mg capsule 0.4 mg PO BEDTIME 90 Days Qty: 90 1RF oxybutynin chloride 15 mg tablet extended release 24hr 15 mg PO BID 30 Days Qty: 60 1RF acetaminophen 500 mg tablet 1,000 mg PO QID PRN (Reason: pain) Qty: 30 0RF ibuprofen 600 mg tablet 600 mg PO Q6H PRN (Reason: pain) Qty: 20 0RF lidocaine 5 % adhesive patch,medicated 1 patch topical DAILY PRN (Reason: pain) 5 Days Qty: 15 0RF Rx Instructions: leave on most painful area for up to 12 hrs ibuprofen 600 mg tablet 600 mg PO Q6H PRN (Reason: pain) Qty: 30 0RF doxycycline hyclate 100 mg tablet 100 mg PO Q12H 10 Days Qty: 20 0RF (DME) FreeStyle Lite Strips Strip See Rx Instructions Not Applicable DAILY Qty: 10 Rx Instructions: As directed benazepril 40 mg tablet 40 mg PO DAILY topiramate 25 mg tablet 25 mg PO BID levothyroxine 125 mcg tablet 125 mcg PO DAILY fluoxetine 10 mg capsule 0 mg PO nystatin [Nystop] 100,000 unit/gram powder topical loratadine 10 mg tablet 10 mg PO DAILY (DME) lancets [Prodigy Twist Top Lancet] 28 gauge misc See Rx Instructions .[facility] Qty: 100 Rx Instructions: As directed Referrals: [facility] Orthopedic Surgeons [Provider Group] (Right posterior tibial platuea fracture) Interventions: ED Discharge Assessment Last Done: 04/12/23 19:33 Discharge Date/Time: 04/12/23 19:50 Print Language: Armenian
[2023-04-12 13:25] VITALS: BP 141/70; PULSE 61; RESP 15; TEMP 36.6; O2SAT 97; BMI 38.3
[2023-04-12 15:39] VITALS: BP 188/82; PULSE 60; RESP 18; TEMP 36.6; O2SAT 99
== END 2023-04-12 19:50 | disposition home or self-care (01) ==
PROVIDERS: Emergency Provider Emergency Medicine Emergency Medical Services; PCP Family Medicine
DX: S82.141A Displaced bicondylar fracture of right tibia, initial encounter for closed fracture (principal); M25.561 Pain in right knee; W01.0XXA Fall on same level from slipping, tripping and stumbling without subsequent striking against object, initial encounter; Y93.9 Activity, unspecified; Y92.9 Unspecified place or not applicable; Y99.9 Unspecified external cause status; Z79.899 Other long term (current) drug therapy
CPT/HCPCS: 73564; 73700; 99283; 99284

== ENCOUNTER 2023-04-15 10:50 | Emergency (ER) | payer MEDICARE, MEDICAID, SELFPAY ==
[2023-04-15 11:04] VITALS: BP 137/64; BP 190/70; PULSE 59; PULSE 67; RESP 16; O2SAT 96; O2SAT 99; BMI 49.9
--- NOTE | 2023-04-15 11:24 | PC.NURSE ---
per ems pt rolled out of bed at 3:30a falling onto his left side, pt A&O and reports no pain at this time.
--- NOTE | 2023-04-15 14:41 | ED.FALL ---
HPI - Fall General Chief Complaint: Fall Stated Complaint: fall 329 from care facility, back pain Time Seen by Provider: 04/15/23 11:27 Source: patient and RN notes reviewed Mode of arrival: ambulatory Limitations: no limitations History of Present Illness HPI Narrative: This is a 57-year-old male, with a past medical history of cerebral palsy, presenting to the emergency department from shelter, for evaluation of fall which occurred during the night at approximately 3:00 a.m.. Staff member reports that patient rolled out of bed and fell. It is unclear how long patient was on the ground for however patient reports that it was only several minutes is calling the front desk receptionist to help him get off the floor. Patient denies hitting head, or loss of consciousness. He denies any headaches, visual changes, nausea, vomiting, or diarrhea. Patient was seen on April 12 after fall, and patient had a tibial plateau fracture. Patient currently in knee immobilizer and has not followed up with Orthopedics. Patient denies any current complaints. MD complaint: fall Onset (ago): hour(s) Fall from: out of bed Fall witnessed: no Place fall occurred: other (long term) Loss of consciousness: none Prolonged down time: minute(s) Symptoms prior to fall: none Related Data Home Medications Medication Instructions Recorded Confirmed blood sugar diagnostic #10 ea 04/13/21 06/29/22 benazepril 40 mg tablet 40 mg PO DAILY 06/28/22 06/29/22 fluoxetine 10 mg capsule 0 mg PO 06/29/22 06/29/22 lancets 28 gauge (Prodigy Twist #100 ea 06/29/22 06/29/22 Top Lancet) levothyroxine 125 mcg tablet 125 mcg PO DAILY 06/29/22 06/29/22 loratadine 10 mg tablet 10 mg PO DAILY 06/29/22 06/29/22 nystatin 100,000 unit/gram topical topical 06/29/22 06/29/22 powder (Nystop) topiramate 25 mg tablet 25 mg PO BID 06/29/22 06/29/22 Previous Rx's Medication Instructions Recorded acetaminophen 500 mg tablet 1,000 mg PO QID PRN pain #30 tabs 03/26/21 ibuprofen 600 mg tablet 600 mg PO Q6H PRN pain #20 tabs 03/26/21 lidocaine 5 % topical patch 1 patch topical DAILY PRN pain 5 03/26/21 days #15 ea doxycycline hyclate 100 mg tablet 100 mg PO Q12H 10 days #20 tabs 07/15/21 ibuprofen 600 mg tablet 600 mg PO Q6H PRN pain #30 tabs 07/15/21 tamsulosin 0.4 mg capsule 0.4 mg PO BEDTIME 90 days #90 caps 08/10/22 oxybutynin chloride 15 mg 15 mg PO BID 30 days #60 tabs 11/20/22 tablet,extended release 24 hr oxycodone 5 mg capsule 5 mg PO TID PRN pain 3 days #9 caps 04/12/23 Allergies Allergy/AdvReac Type Severity Reaction Status Date / Time No Known Allergies Allergy Verified 04/12/23 13:25 [No Known Allergies*] Review of Systems Review of Systems: Constitutional: No Weight loss, No Fever, No Chills, No Night Sweats, No Fatigue, No Malaise ENT/Mouth: No Hearing loss, No Ear Pain, No Nasal Congestion, No Sinus Pain, No Hoarseness, No sore throat, No Rhinorrhea, No Swallowing Difficulty Eyes: No Eye Pain, No Swelling, No Redness, No Foreign Body, No Discharge, No Vision Changes Cardiovascular: No Chest Pain, No SOB, No Dyspnea on Exertion, No Orthopnea, No Edema, No Palpitations Respiratory: No Cough, No Sputum, No Wheezing, No Smoke Exposure, No Dyspnea Gastrointestinal: No Nausea, No Vomiting, No Diarrhea, No Constipation, No Abdominal pain, No Hematochezia, No Melena Genitourinary: No irregular bleeding, No Dysuria, No Urinary Frequency, No Hematuria, No Urinary Incontinence/retention, No Urgency, No Flank Pain, No Urinary Flow Changes, No Hesitancy Musculoskeletal: No joint pain, No Myalgias, No Joint Swelling Skin: No Skin Lesions, No rash Neuro: No Weakness, No Numbness, No Paresthesias, No Loss of Consciousness, No Dizziness, No Headache Psych: No Anxiety/Panic, No Depression, No SI/HI/AH/VH, No Social Issues, Heme/Lymph: No Bruising, No Bleeding,No Lymphadenopathy Endocrine: No Polyuria, No Polydipsia, No Temperature Intolerance Yes all other systems are reviewed and are negative Constitutional: Constitutional: Reports as per [facility] Past Medical History Medical History Diabetes mellitus type 1 Hypertension Social History Social History Alcohol intake: never Physical Exam Vital Signs: Vital Signs: Last Vital Signs Temp 98.1 F 04/15/23 14:53 Pulse 56 04/15/23 14:53 Resp 18 04/15/23 14:53 BP 151/74 H 04/15/23 14:53 Pulse Ox 99 04/15/23 14:53 O2 Del Method Room Air 04/15/23 14:53 BMI result Body Mass Index 49.9 Const: Other: Head is normal cephalic, atraumatic General: cooperative, comfortable and no acute distress Orientation/consciousness: patient oriented x3 Limitations: no limitations HEENT: Other: No hemotympanum noted bilaterally Head: Yes normal to inspection, Yes normocephalic and Yes atraumatic Ears: hearing grossly normal bilaterally General nose exam: Normal external nose present Face and sinus: Yes normal facial exam Mouth: Normal oral and palatal mucosa present, oropharynx normal and moist mucous membranes Throat: Yes posterior oropharynx normal Eyes: General: appearance normal, both eyes and all related structures Eyelids: Yes eyelids normal Conjunctivae: conjunctivae normal Sclerae: sclerae normal Pupils: Equal, round and reactive pupils present EOM: EOMs intact bilaterally Neck: Neck: Yes normal visual inspection, Yes full ROM and Yes no lymphadenopathy Lymphatic: no lymphadenopathy noted Chest: Chest palpation & inspection: normal inspection of the chest Resp: Effort & Inspection: normal respiratory effort and able to speak in complete sentences Auscultation: clear to auscultation bilaterally, no crackles, no rales, no rhonchi and no wheezes Cardio: Rate: regular rate Rhythm: regular rhythm Heart sounds: S1 normal heart sound present and S2 normal heart sound present GI: Inspection: Yes normal to inspection Back/Spine/Pelvis: Other: No cervical midline spine tenderness, no midline spine tenderness. No step-off or deformity. Skin: General skin exam: no rashes or lesions noted Trauma: no lacerations or abrasions Wounds: no wounds Neuro: General: patient oriented x3 and moves all extremities Cranial nerves: Yes Equal, round and reactive pupils present and Yes Midline tongue present Motor exam (neuro): 5/5 motor strength present throughout and no tremor noted Extrem: General: Yes normal to inspection Right upper extremity: normal to inspection Left upper extremity: normal to inspection Right lower extremity: normal to inspection Left lower extremity: normal to inspection Course Reevaluation(s) Reevaluation #1: CT head and cervical spine unremarkable, patient is stable for discharge, patient needs ambulance to return home. Time: 16:48 Medical Decision Making Medical Decision Making MDM Narrative: 57-year-old male presenting to the emergency department for evaluation. Patient will. Patient was on the ground for several minutes. Is unclear whether not patient has the capacity to inform me whether not his experiencing any headache or neck is patient has current tibial plateau fracture and is nontender on exam. Patient is not on blood thinners, patient is neurologically intact without any focal findings. No hemotympanum, head is normocephalic atraumatic Given exam limitations due to developmental delay, I think it is reasonable to order a head and neck scan. Differential Diagnosis Differential Diagnoses: The differential diagnosis associated with the presentation includes ICH, subdural, closed head injury, concussion Admission/Observation Consideration of admission/observation: Escalation of care including admission/observation considered Patient would have been admitted to the hospital had his work up had any findings where hospital admission was appropriate and his clinical presentation warranted hospital admission. Radiology Impression Discussion of test interpretation with radiology: I have reviewed the radiologist's reading. External Record Review External record reviewed: Inpatient record, Office record, Outpatient record, Prior outpatient labs, Prior outpatient radiology, Primary care record and Outside ED record Discharge Plan Discharge Clinical Impression: Fall Patient Disposition: er [facility] Instructions: How to Get a Person out of Bed (DC), Fall Prevention (ED), How to Transfer a Person Safely (DC) Additional Instructions: Juan's head CT did not show any head bleed, C-spine CT revealing degenerative changes. Please return to shelter. If any new or worsening symptoms occur please return for re-evaluation. Prescriptions: No Action tamsulosin 0.4 mg capsule 0.4 mg PO BEDTIME 90 Days Qty: 90 1RF oxybutynin chloride 15 mg tablet extended release 24hr 15 mg PO BID 30 Days Qty: 60 1RF acetaminophen 500 mg tablet 1,000 mg PO QID PRN (Reason: pain) Qty: 30 0RF ibuprofen 600 mg tablet 600 mg PO Q6H PRN (Reason: pain) Qty: 20 0RF lidocaine 5 % adhesive patch,medicated 1 patch topical DAILY PRN (Reason: pain) 5 Days Qty: 15 0RF Rx Instructions: leave on most painful area for up to 12 hrs ibuprofen 600 mg tablet 600 mg PO Q6H PRN (Reason: pain) Qty: 30 0RF doxycycline hyclate 100 mg tablet 100 mg PO Q12H 10 Days Qty: 20 0RF oxycodone 5 mg capsule 5 mg PO TID PRN (Reason: pain) 3 Days Qty: 9 0RF Rx Instructions: Partial Fill upon patient request. (DME) FreeStyle Lite Strips Strip See Rx Instructions Not Applicable DAILY Qty: 10 Rx Instructions: As directed benazepril 40 mg tablet 40 mg PO DAILY topiramate 25 mg tablet 25 mg PO BID levothyroxine 125 mcg tablet 125 mcg PO DAILY fluoxetine 10 mg capsule 0 mg PO nystatin [Nystop] 100,000 unit/gram powder topical loratadine 10 mg tablet 10 mg PO DAILY (DME) lancets [Prodigy Twist Top Lancet] 28 gauge misc See Rx Instructions .ROUTE .MEDSUPPLY Qty: 100 Rx Instructions: As directed
[2023-04-15 14:53] VITALS: BP 151/74; PULSE 56; RESP 18; TEMP 36.7; O2SAT 99
--- NOTE | 2023-04-15 17:43 | PC.NURSE ---
report given to EMS for transfer back to care home.
== END 2023-04-15 17:49 | disposition skilled nursing facility (03) ==
PROVIDERS: Emergency Provider Emergency Medicine
DX: S09.90XA Unspecified injury of head, initial encounter (principal); S39.92XA Unspecified injury of lower back, initial encounter; M54.50 Low back pain, unspecified; M54.2 Cervicalgia; R51.9 Headache, unspecified; W01.0XXA Fall on same level from slipping, tripping and stumbling without subsequent striking against object, initial encounter; Y93.9 Activity, unspecified; Y92.9 Unspecified place or not applicable; Y99.9 Unspecified external cause status; Z79.899 Other long term (current) drug therapy
CPT/HCPCS: 70450; 72125; 99284

== ENCOUNTER 2023-04-26 12:59 | Outpatient (REF) | payer MEDICARE, MEDICAID, SELFPAY ==
--- NOTE | ~2023-04-26 | XR_ITS ---
EXAMINATION: XR KNEE, RIGHT CLINICAL INFORMATION: Pain. COMPARISON: CT right knee 04/12/2023. TECHNIQUE: Two views of the right knee. FINDINGS: Comminuted intra-articular fracture of the central aspect of the posterior tibial plateau redemonstrated but best characterized on recent CT from 04/12/2023. No significant associated callus formation. No interval injury. Mild joint space narrowing of the medial compartment. Moderate size joint effusion. XR/XR knee RT 2V IMPRESSION: 1. Comminuted intra-articular fracture of the posterior tibial plateau, best characterized on recent CT from 04/12/2023. 2. Moderate size joint effusion.
== END 2023-04-26 13:00 | disposition home or self-care (01) ==
LOC: HO.HOSX 12:59
PROVIDERS: Visit Provider Physician Assistant
DX: S82.141A Displaced bicondylar fracture of right tibia, initial encounter for closed fracture (principal); W06.XXXA Fall from bed, initial encounter; Y93.9 Activity, unspecified; Y92.9 Unspecified place or not applicable; Y99.9 Unspecified external cause status
CPT/HCPCS: 73560; 99202

== ENCOUNTER 2023-04-26 14:09 | Outpatient (AMB) | payer MEDICARE, MEDICAID, SELFPAY ==
--- NOTE | 2023-04-26 14:27 | MHC.OFFVIS ---
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 Patient reports that he had fallen out of bed, he presented to [facility] ER where he was placed in knee immobilizer. He continues to have constant pain. He has been non weight bearing. Allergies No Known Allergies [No Known Allergies*] Allergy (Verified 04/26/23 14:28) HPI FC- RT Fracture of tibial plateau-New PT HPI Details 57-year-old male who presents to the office today with his process control programmer for an ER follow-up of right tibia plateau fracture s/p falling out of his bed, 04/12/23. He has a PMH of cerebal palsy. He does have weakness in the lower extremities and primarily uses a wheelcahr. He was seen an ER where he was placed in a knee immobilizer and referred to our office for ortho eval. [facility] Medical History Diabetes mellitus type 1 Hypertension Social History Alcohol intake: never Patient Tobacco Use Status: Never used Tobacco Review of Systems Const All systems reviewed & are unremarkable except as noted in HPI and below Physical Exam Vital Signs: BMI result Body Mass Index 49.9 Const General: cooperative and no acute distress Orientation/consciousness: patient oriented x3 Resp Effort & Inspection: normal respiratory effort and able to speak in complete sentences Cardio Peripheral pulses: Peripheral pulses 2+ throughout Neuro General: patient oriented x3 Extrem Other: Right knee: Normal to inspection. He does have a trace joint effusion and tenderness lateral aspect of tibia which extends into the posterior aspect. Calf supple, nontender. NVI. Results Reviewed Results Reviewed: Xrays were obtained in the office today and personally reviewed by me of the right knee show non displaced tibial plateau fracture Assessment & Plan Assessment & Plan (1) Tibial plateau fracture, right: Code(s): S82.141A - Displaced bicondylar fracture of right tibia, initial encounter for closed fracture Plan He can be toe-touch weight bearing with the brace locked in ext. when he is resting he can unlock the brace for ROM or he can also remove for resting and hygiene. He will also begin a course of physical therapy to work on ROM to tolerance, isometric quad strength, upper body conditioning and gait training. I would like to see him back in 6 weeks with new x-rays, sooner if needed. Orders: Orders XR knee RT 2V 04/26/23 M25.569 - Pain in unspecified knee PT Evaluation and Treatment 04/26/23 S82.141A - Displaced bicondylar fracture of right tibia, initial encounter for closed fracture Patient Instructions: Scribed for Jose Jose PA-C, by Prince Smith medical imaging director, on 04/26/2023 at 2:30 PM EST. I, Jose Jose PA-C, have personally reviewed and agree with the information entered by the scribe. Coding Level of Care Code New Pt Level 3 (67599) Diagnoses Tibial plateau fracture, right S82.141A
[2023-04-26 14:28] VITALS: BMI 49.9
== END 2023-04-26 15:10 | disposition home or self-care (01) ==
PROVIDERS: Visit Provider Physician Assistant
DX: S82.145A Nondisplaced bicondylar fracture of left tibia, initial encounter for closed fracture (principal)
CPT/HCPCS: 99203

== ENCOUNTER 2023-06-04 10:51 | Outpatient (RCR) | payer MEDICARE, MEDICAID, SELFPAY ==
--- NOTE | 2023-06-04 16:10 | MHC.PT.EP ---
[facility] [place] [facility] [place] [facility] [place] [facility] [address] Albertina Connors [address] [phone] F: [phone] F: [phone] F: [phone] F: [phone] Physical Therapy Plan of Care Date of Evaluation: Date of Surgery: NA Diagnosis: DISPLACED BICONDYLAR FX R TIBIA TTWB-ROM TO TOLERANCE, Assessment: Pt IS 57 YO M REFERRED TO PT FROM [facility] ([facility]) WITH R TIBIAL PLATEAU FX S/P FALL OOB ON 04/12/23. WENT TO ER (X 2) AND [facility] (04/26/23). PRESENTS TO PT WITH IMMOBILIZER R KNEE AND AFO. Pt WITH DIFFICULTY WITH SIT<>STAND. OVERALL HAS R KNEE ROM WFLS AND FUNCTIONAL STRENGTH. Pt'S [employer] DE[employer]MENT [employer]AD (URSULA WHO IS WITH Pt DURING EVAL AND HAS WORKED WITH HIM FOR 4 YEARS REPORTS HE DOESNT SEEM TO BE HAVING ISSUES WITH PAIN AND HAS BEEN WALKING/FUNCTIONING PRE-FALL. THIS PT CALLED [facility] TO ASK ABOUT WB STATUS AND NEED FOR PT (HAS DECENT ROM AND STRENGTH). SHOULD BENEFIT FROM 1-2 VISITS TO ENSURE I HEP WITHOUT INCREASE IN PAIN, RELAY INFO FROM [facility] Frequency and Duration: The patient will be seen 3-5 VISITS Short Term Goals: 1. I HEP WITH ASSIST FROM [employer]MENT LEAD WITHOUT REPORT OF INCREASE IN PAIN 2. IMROVED SUP<>SIT TRANSF WITH S 3. IMPROVED SIT<>STAND TRANSF WITH S Cask Maker Goals: Treatment Plan: Modalities to reduce pain, spasms and effusion. Manual therapy to restore motion and function. Therapeutic exercise to improve strength and flexibility. Neuromuscular re-education for posture and balance. Therapeutic activities to return to functional activities of daily living. Electronically signed by: ORAL MUELLER PT Please sign and return to therapist. Thank you for your referral.
--- NOTE | 2023-07-26 13:57 | MHC.PT.DC ---
[facility] [place] Office [place] [facility] [place] Office [address] Albertina Connors [address] [phone] F: [phone] F: [phone] F: [phone] F: [phone] Physical Therapy Discharge Report Diagnosis: DISPLACED BICONDYLAR FX R TIBIA TTWB-ROM TO TOLERANCE, Date of Surgery: NA Date of Evaluation: 06/04/23 Date of Discharge: 07/10/23 Treatments to Date: 1 Cancellations to Date: No Shows to Date: Discharge Status: Patient Elected to Stop Recommend MD Follow-up Discharge Summary: PER ASSESSMENT FROM INIT EVAL Pt IS 57 YO M REFERRED TO PT FROM [facility] ([facility]) WITH R TIBIAL PLATEAU FX S/P FALL OOB ON 04/12/23. WENT TO ER (X 2) AND [facility] (04/26/23). PRESENTS TO PT WITH IMMOBILIZER R KNEE AND AFO. Pt WITH DIFFICULTY WITH SIT<>STAND. OVERALL HAS R KNEE ROM WFLS AND FUNCTIONAL STRENGTH. Pt'S OIL OPERATOR (URSULA WHO IS WITH Pt DURING EVAL AND HAS WORKED WITH HIM FOR 4 YEARS REPORTS HE DOESNT SEEM TO BE HAVING ISSUES WITH PAIN AND HAS BEEN WALKING/FUNCTIONING PRE-FALL. THIS PT CALLED [facility] OBRIEN TO ASK ABOUT WB STATUS AND NEED FOR PT (HAS DECENT ROM AND STRENGTH). SHOULD BENEFIT FROM 1-2 VISITS TO ENSURE I HEP WITHOUT INCREASE IN PAIN, RELAY INFO FROM [facility] Pt DID NOT COME IN FOR FU VISIT Electronically signed by: ORAL MUELLER PT Please sign and return to therapist. Thank you for your referral.
== END 2023-07-26 13:57 | disposition home or self-care (01) ==
LOC: HO.PT 10:51
PROVIDERS: PCP Family Medicine; Visit Provider Physician Assistant
DX: S82.141D Displaced bicondylar fracture of right tibia, subsequent encounter for closed fracture with routine healing (principal)
CPT/HCPCS: 97110; 97162

== ENCOUNTER 2023-06-06 07:20 | Outpatient (REF) | payer MEDICARE, MEDICAID, SELFPAY | END 2023-06-06 07:21 | disposition home or self-care (01) | LOC: HO.HOSX 07:20 | PROVIDERS: Visit Provider Physician Assistant | DX: Z13.89 Encounter for screening for other disorder (principal) ==

== ENCOUNTER 2023-06-06 12:25 | Emergency (ER) | payer MEDICARE, MEDICAID, SELFPAY ==
[2023-06-06 12:36] VITALS: BP 126/87; BP 159/66; PULSE 51; PULSE 56; RESP 16; TEMP 36.8; O2SAT 98; O2SAT 99; BMI 36.6
[2023-06-06 12:44] VITALS: BP 159/66; PULSE 51; RESP 16; TEMP 36.8; O2SAT 99
--- NOTE | 2023-06-06 12:48 | PC.NURSE ---
pt currently a&ox3, vss aside from bradycardia (baseline for pt). biba after controlled/assisted fall where pt was lowered to ground safely. pt unable to verbalize why he fell at this time. pt denies any pain or any other sx. member from facility bedside w/ patient. pt states he has a hx of DM but does not take any medication. tech did POC = 85mg/dL.
[2023-06-06 12:49] LABS: Glucose, Whole Blood 89 mg/dL (60-115)
--- NOTE | 2023-06-06 13:34 | PC.NURSE ---
patient was assisted by this nurse oob and ambulated the hallway with gaitbelt and wheeled walker, alf staff stated pt was ambulating at his baseline, pt had c/o minor RLE pain while ambulating which he has had prior to arrival to the ED.
--- NOTE | 2023-06-06 13:36 | PC.NURSE ---
pt used walker to ambulate. pt has gait belt secured to wast/chest to help pt ambulate. pt was slightly unsteady but pack mule worker states that this is the pt's baseline.
--- NOTE | 2023-06-06 13:38 | ED.FALL ---
HPI - Fall General Chief Complaint: Fall Stated Complaint: FALL, FROM [facility],RECENT R KNEE FX Time Seen by Provider: 06/06/23 13:05 Source: patient and other Mode of arrival: EMS History of Present Illness HPI Narrative: 57-year-old male was brought in from a longterm after he was standing, he typically walks with a walker at baseline and has a healing right lower extremity fracture from over a month ago and got off balance falling backwards but was caught and gently lowered to the floor by the longterm staff. There was no head strike, no loss of consciousness and patient is not on blood thinners. He currently denies any difficulty with pain. Related Data Home Medications Medication Instructions Recorded Confirmed blood sugar diagnostic #10 ea 04/13/21 06/29/22 benazepril 40 mg tablet 40 mg PO DAILY 06/28/22 06/29/22 fluoxetine 10 mg capsule 0 mg PO 06/29/22 06/29/22 lancets 28 gauge (Prodigy Twist #100 ea 06/29/22 06/29/22 Top Lancet) levothyroxine 125 mcg tablet 125 mcg PO DAILY 06/29/22 06/29/22 loratadine 10 mg tablet 10 mg PO DAILY 06/29/22 06/29/22 nystatin 100,000 unit/gram topical topical 06/29/22 06/29/22 powder (Nystop) topiramate 25 mg tablet 25 mg PO BID 06/29/22 06/29/22 valacyclovir 500 mg tablet 500 mg PO BID 04/26/23 Previous Rx's Medication Instructions Recorded acetaminophen 500 mg tablet 1,000 mg PO QID PRN pain #30 tabs 03/26/21 ibuprofen 600 mg tablet 600 mg PO Q6H PRN pain #20 tabs 03/26/21 lidocaine 5 % topical patch 1 patch topical DAILY PRN pain 5 03/26/21 days #15 ea doxycycline hyclate 100 mg tablet 100 mg PO Q12H 10 days #20 tabs 07/15/21 ibuprofen 600 mg tablet 600 mg PO Q6H PRN pain #30 tabs 07/15/21 tamsulosin 0.4 mg capsule 0.4 mg PO BEDTIME 90 days #90 caps 08/10/22 oxybutynin chloride 15 mg 15 mg PO BID 30 days #60 tabs 11/20/22 tablet,extended release 24 hr oxycodone 5 mg capsule 5 mg PO TID PRN pain 3 days #9 caps 04/12/23 Allergies Allergy/AdvReac Type Severity Reaction Status Date / Time No Known Allergies Allergy Verified 06/06/23 12:36 [No Known Allergies*] Review of Systems Review of Systems: Pertinent positives and negatives as stated in [facility] Past Medical History Source: nursing notes reviewed Medical History Diabetes mellitus type 1 Hypertension Social History Social History Alcohol intake: never Patient Tobacco Use Status: Never used Tobacco Smoked in Last 30 Days: No Use of substances other than those prescribed or required for medical reasons: No Advance Directives: No Physical Exam Vital Signs: Vital Signs: Last Vital Signs Temp 98.2 F 06/06/23 12:44 Pulse 51 06/06/23 12:44 Resp 16 06/06/23 12:44 BP 159/66 H 06/06/23 12:44 Pulse Ox 99 06/06/23 12:44 O2 Del Method Room Air 06/06/23 12:44 BMI result Body Mass Index 36.6 VITAL SIGNS: Reviewed. GENERAL: Well developed, well nourished, in no acute distress. HEAD: Normocephalic/atraumatic EYES: PERRLA, EOMI OROPHARYNX: no oral lesions noted, posterior pharynx clear NECK: Supple, no adenopathy LUNGS: Normal breath sounds. No adventitious sounds or accessory muscle use. SpO2<99> CARDIOVASCULAR: Regular rate and rhythm without noted murmurs ABDOMEN: Soft, non-tender, non-distended with bowel sounds. MUSCULOSKELETAL: No tenderness, deformities, or effusions noted on gross inspection. EXTREMITIES: No cyanosis, clubbing or edema. RLE: Immobilizer in place SKIN: Inspection of the skin reveals no rashes NEUROLOGIC: Alert and oriented x 2. Strength and sensation to light touch were grossly intact x 4. Medical Decision Making Medical Decision Making [facility] Narrative: 57-year-old male with history and clinical presentation of a mild fall and minimal strike on pelvis, ambulates at bedside with a walker without any difficulty and only mild discomfort in the right lower extremity which is consistent with healing fracture. Otherwise, there are no criteria met for CT of the head and patient is otherwise discharged back to the longterm. Differential Diagnosis Differential Diagnoses: The differential diagnosis associated with the presentation includes Please see the discussion above Lab Data Labs: Lab Results 06/06/23 Range/Units 12:45 POC Glucose 89 (60-115) mg/dL External Record Review External record reviewed: Prior outpatient radiology Discharge Plan Discharge Clinical Impression: Fall Patient Disposition: Xfer Other Instructions: Fall Prevention (ED) Additional Instructions: 1. Resume all home medications as prescribed. 2. Recommend follow-up with her primary care provider. Return to the ER for any worsening symptoms. Prescriptions: No Action tamsulosin 0.4 mg capsule 0.4 mg PO BEDTIME 90 Days Qty: 90 1RF oxybutynin chloride 15 mg tablet extended release 24hr 15 mg PO BID 30 Days Qty: 60 1RF acetaminophen 500 mg tablet 1,000 mg PO QID PRN (Reason: pain) Qty: 30 0RF ibuprofen 600 mg tablet 600 mg PO Q6H PRN (Reason: pain) Qty: 20 0RF lidocaine 5 % adhesive patch,medicated 1 patch topical DAILY PRN (Reason: pain) 5 Days Qty: 15 0RF Rx Instructions: leave on most painful area for up to 12 hrs ibuprofen 600 mg tablet 600 mg PO Q6H PRN (Reason: pain) Qty: 30 0RF doxycycline hyclate 100 mg tablet 100 mg PO Q12H 10 Days Qty: 20 0RF oxycodone 5 mg capsule 5 mg PO TID PRN (Reason: pain) 3 Days Qty: 9 0RF Rx Instructions: Partial Fill upon patient request. (DME) FreeStyle Lite Strips Strip See Rx Instructions Not Applicable DAILY Qty: 10 Rx Instructions: As directed benazepril 40 mg tablet 40 mg PO DAILY topiramate 25 mg tablet 25 mg PO BID levothyroxine 125 mcg tablet 125 mcg PO DAILY fluoxetine 10 mg capsule 0 mg PO nystatin [Nystop] 100,000 unit/gram powder topical loratadine 10 mg tablet 10 mg PO DAILY (DME) lancets [Prodigy Twist Top Lancet] 28 gauge misc See Rx Instructions .ROUTE .MEDSUPPLY Qty: 100 Rx Instructions: As directed valacyclovir 500 mg tablet 500 mg PO BID Referrals: Kolby Lea MD [Primary Care Provider] -
== END 2023-06-06 13:55 | disposition other institution (70) ==
PROVIDERS: Emergency Provider Student in an Organized Health Care Education/Training Program; PCP Family Medicine
DX: Z03.89 Encounter for observation for other suspected diseases and conditions ruled out (principal); Z91.81 History of falling; E10.9 Type 1 diabetes mellitus without complications; I10 Essential (primary) hypertension
CPT/HCPCS: 82947; 99284

== ENCOUNTER 2023-07-01 13:55 | Outpatient (AMB) | payer MEDICARE, MEDICAID, SELFPAY ==
--- NOTE | 2023-07-01 14:04 | A.OFFVIS_ITS ---
Intake Intake Visit Reasons: OV-Rt tib plateau fx w/ xrays Intake Note: Juan is a 57 year old male who presents today with his program control analyst for a follow up of his right tibial plateau fx, DOI 04/12/23. Patient reports having pain on his thigh which moves down to the lateral aspect of the knee. He states that his home PT is not helping him with strength or mobility. Allergies No Known Allergies [No Known Allergies*] Allergy (Verified 07/01/23 14:05) HPI OV-Rt tib plateau fx w/ xrays HPI Details 57-year-old male who returns to the [facility] today with his program control analyst for a follow-up of right tibial plateau fracture, 04/12/23. He states he has pain in his thigh which radiates down to the lateral aspect of his knee. He is working with physical therapy without benefits. [facility] Medical History Diabetes mellitus type 1 Hypertension Social History Alcohol intake: never Patient Tobacco Use Status: Never used Tobacco Review of Systems Const All systems reviewed & are unremarkable except as noted in HPI and below Physical Exam Const General: cooperative and no acute distress Orientation/consciousness: patient oriented x3 Resp Effort & Inspection: normal respiratory effort and able to speak in complete sen tences Cardio Peripheral pulses: Peripheral pulses 2+ throughout Neuro General: patient oriented x3 Extrem Other: Right knee: Normal to inspection. He does have a trace joint effusion and tenderness lateral aspect of tibia which extends into the posterior aspect. ROM is 0-95 degrees. Calf supple, nontender. NVI. Results Reviewed Results Reviewed: X-rays of the right knee obtained in the office today show a stable fracture pattern with interval healing. Assessment & Plan Assessment & Plan (1) Tibial plateau fracture, right: Code(s): S82.141A - Displaced bicondylar fracture of right tibia, initial encounter for closed fracture Qualifiers: Encounter type: subsequent encounter Fracture type: closed Fracture healing: with routine healing Qualified Code(s): S82.141D - Displaced bicondylar fracture of right tibia, subsequent encounter for closed fracture with routine healing Plan He will continue toe-touch weight bearing with the brace locked in extension. He can remove the brace with physical therapy and while at rest. I do think he is clear to attend his day program as long as he is using his chair for transportation as he does have poor balance and the day program does not have additional staff to care for him at the level he needs while weight bearing with a walker. He will continue with therapy non weight bearing to work on ROM and isometric quad exercises. He will see me back in 6 weeks with new x-rays, sooner if needed. Orders: Orders XR knee RT 2V Today M25.569 - Pain in unspecified knee Patient Instructions: Scribed for Jose Jose PA-C, by Prince Smith medical technologist generalist, on 07/01/2023 at 2:15 PM EST. I, Jose Jose PA-C, have personally reviewed and agree with the information entered by the scribe. Coding Level of Care Code Global (78905) Diagnoses Closed fracture of right tibial plateau with routine healing, subsequent encounter S82.141D Encounter type: subsequent encounter Fracture type: closed Fracture healing: with routine healing
== END 2023-07-01 14:36 | disposition home or self-care (01) ==
PROVIDERS: PCP Family Medicine; Visit Provider Physician Assistant
DX: S82.141D Displaced bicondylar fracture of right tibia, subsequent encounter for closed fracture with routine healing (principal)
CPT/HCPCS: 99213

== ENCOUNTER 2023-07-01 15:34 | Outpatient (REF) | payer MEDICARE, MEDICAID, SELFPAY ==
--- NOTE | ~2023-07-01 | XR_ITS ---
EXAMINATION: XR KNEE, RIGHT CLINICAL INFORMATION: Pain COMPARISON: Right knee radiograph from 04/26/2023 TECHNIQUE: AP and lateral views of the right knee. FINDINGS: Redemonstration of comminuted posterior tibial plateau intra-articular fracture. Multi joint arthritic changes. A fabella is noted in the posterior compartment. Joint spaces and alignment are otherwise maintained. No large knee joint effusion. Soft tissues are unremarkable. XR/XR knee RT 2V IMPRESSION: Redemonstration of comminuted posterior tibial plateau intra-articular fracture.
== END 2023-07-01 15:35 | disposition home or self-care (01) ==
LOC: HO.HOSX 15:34
PROVIDERS: Visit Provider Physician Assistant
DX: S82.141D Displaced bicondylar fracture of right tibia, subsequent encounter for closed fracture with routine healing (principal)
CPT/HCPCS: 73560; 99212

== ENCOUNTER 2023-08-12 10:51 | Outpatient (AMB) | payer MEDICARE, MEDICAID, SELFPAY ==
[2023-08-12 11:02] VITALS: BMI 36.6
--- NOTE | 2023-08-12 11:02 | A.OFFVIS_ITS ---
Intake Vital Signs 08/12/23 11:02 Height 5 ft 5 in Weight 220 lb BMI 36.6 Intake Visit Reasons: OV-Rt tib plateau fx w/ xrays Intake Note: Juan is a 57 year old male who presents today with his program rep for a follow up of his right tibial plateau fx, DOI 04/12/23. Xrays updated. Patient's program rep stated that his has been doing fairly well. He is able to lift himself up and walking more per program rep. Allergies No Known Allergies [No Known Allergies*] Allergy (Verified 08/12/23 11:05) HPI OV-Rt tib plateau fx w/ xrays HPI Details 57-year-old male who returns to the [facility] today with his program rep for a follow-up of right knee fracture, 04/12/23. His program rep states that he has no pain and is doing well overall. He is able to lift himself and he denies any pain with ambulation. [facility]LY [facility], [facility] Medical History Diabetes mellitus type 1 Hypertension Social History Alcohol intake: never Patient Tobacco Use Status: Never used Tobacco Review of Systems Const All systems reviewed & are unremarkable except as noted in HPI and below Physical Exam Vital Signs: BMI result Body Mass Index 36.6 Const General: cooperative and no acute distress Orientation/consciousness: patient oriented x3 Resp Effort & Inspection: normal respiratory effort and able to speak in complete sentences Cardio Peripheral pulses: Peripheral pulses 2+ throughout Neuro General: patient oriented x3 Extrem Other: Right knee: Normal to inspection. No joint effusion . No tenderness to palpation. ROM is 0-95 degrees. Calf supple, nontender. NVI. Results Reviewed Results Reviewed: X-rays of the right knee obtained in the office today show a stable fracture pattern with interval healing. Assessment & Plan Assessment & Plan (1) Tibial plateau fracture, right: Code(s): S82.141A - Displaced bicondylar fracture of right tibia, initial encounter for closed fracture Qualifiers: Encounter type: subsequent encounter Fracture healing: with routine healing Fracture type: closed Qualified Code(s): S82.141D - Displaced bicondylar fracture of right tibia, subsequent encounter for closed fracture with routine healing Plan He will resume activities as tolerated. If he develops any pain or concerns, patient will contact the office, otherwise follow-up as needed. Orders: Orders XR knee RT 2V Today M25.569 - Pain in unspecified knee Patient Instructions: Scribed for Jose Jose PA-C, by Prince Smith medical education manager, on 08/12/2023 at 11:00 AM EST. I, Jose Jose PA-C, have personally reviewed and agree with the information entered by the scribe. Coding Level of Care Code Global (23897) Diagnoses Closed fracture of right tibial plateau with routine healing, subsequent encounter S82.141D Encounter type: subsequent encounter Fracture healing: with routine healing Fracture type: closed
== END 2023-08-12 11:39 | disposition home or self-care (01) ==
PROVIDERS: PCP Family Medicine; Visit Provider Physician Assistant
DX: S82.141D Displaced bicondylar fracture of right tibia, subsequent encounter for closed fracture with routine healing (principal)
CPT/HCPCS: 99213

== ENCOUNTER 2023-08-12 12:59 | Outpatient (REF) | payer MEDICARE, MEDICAID, SELFPAY ==
--- NOTE | ~2023-08-12 | XR_ITS ---
EXAMINATION: XR KNEE, RIGHT CLINICAL INFORMATION: Pain in unspecified knee. COMPARISON: 07/01/2023 right knee. TECHNIQUE: 2 views of the right knee. FINDINGS: Redemonstration of a comminuted posterior tibial plateau intra-articular fracture. Bones are diffusely demineralized. Tricompartmental degenerative changes. Evaluation for joint effusion limited due to overlying fold and recommend repeat lateral view at no charge to patient. If this view is provided, an addendum will be dictated. XR/XR knee RT 2V IMPRESSION: Redemonstration of comminuted posterior tibial plateau intra-articular fracture.
== END 2023-08-12 13:00 | disposition home or self-care (01) ==
LOC: HO.HOSX 12:59
PROVIDERS: Visit Provider Physician Assistant
DX: S82.141D Displaced bicondylar fracture of right tibia, subsequent encounter for closed fracture with routine healing (principal)
CPT/HCPCS: 73560; 99212

== ENCOUNTER 2023-11-10 10:49 | Emergency (ER) | payer MEDICARE, MEDICAID, SELFPAY ==
--- NOTE | ~2023-11-10 | US_ITS ---
EXAMINATION: US VENOUS ULTRASOUND WITH DOPPLER LOWER EXTREMITY, BILATERAL CLINICAL INFORMATION: Bilateral lower extremity swelling COMPARISON: None available. TECHNIQUE: Ultrasound of the deep veins is performed from the hip to the calf with compression sonography and color and pulse Doppler assessment. Spectral analysis with color-flow imaging is performed. FINDINGS: RIGHT: There is normal venous compression and respiratory variation and augmented flow. The visualized common femoral vein, superficial femoral vein, profunda femoral vein, popliteal vein, and the trifurcation region shows no evidence of deep venous thrombosis. There is no significant popliteal fossa cyst. LEFT: There is normal venous compression and respiratory variation and augmented flow. The visualized common femoral vein, superficial femoral vein, profunda femoral vein, popliteal vein, and the trifurcation region shows no evidence of deep venous thrombosis. There is no significant popliteal fossa cyst. If the patient's symptoms persist, followup ultrasound in 5 days 7 days might be of value to exclude proximal propagation from a non-visualized calf vein. US/US venous duplex LE BI IMPRESSION: No DVT demonstrated in the bilateral lower extremity.
--- NOTE | ~2023-11-10 | XR_ITS ---
EXAMINATION: XR TIBIA FIBULA, BILATERAL CLINICAL INFORMATION: Leg swelling COMPARISON: Right knee radiograph from 08/12/2023 TECHNIQUE: 2 views of the bilateral tibia fibula FINDINGS: RIGHT: Previously identified intra-articular fracture of the posterior tibial plateau is less conspicuous compatible with healing. Plantar calcaneal heel spur. Slight enthesopathy at the Achilles tendon insertion site. Joint space alignment are otherwise maintained. Soft tissues are unremarkable. LEFT: No acute visible fracture or dislocation. Enthesopathy at the Achilles tendon insertion site. Fabella is noted posterior compartment knee. Joint space alignment are maintained. Soft tissues are unremarkable XR/XR tibia fibula LT 2V IMPRESSION: 1. Previously identified intra-articular fracture of the posterior tibial plateau is less conspicuous compatible with healing. 2. No acute visible fracture or dislocation.
--- NOTE | ~2023-11-10 | XR_ITS ---
EXAMINATION: XR FOOT, RIGHT CLINICAL INFORMATION: Right fifth toe pain after injury COMPARISON: None available. TECHNIQUE: Four views of the right foot. FINDINGS: No acute visible fracture or dislocation. The joint arthritic changes. Plantar calcaneal heel spur. Spurring the dorsal midfoot. Pes planus. Enthesopathy at the Achilles tendon insertion site. Mild soft tissue prominence about the forefoot. Joint spaces and alignment are otherwise maintained. XR/XR foot RT 2V IMPRESSION: 1. No acute visible fracture or dislocation. 2. Degenerative changes with plantar calcaneal heel spur, enthesopathy at the Achilles tendon insertion site, and pes planus. 3. Mild soft tissue prominence about the forefoot.
--- NOTE | ~2023-11-10 | XR_ITS ---
EXAMINATION: XR TIBIA FIBULA, BILATERAL CLINICAL INFORMATION: Leg swelling COMPARISON: Right knee radiograph from 08/12/2023 TECHNIQUE: 2 views of the bilateral tibia fibula FINDINGS: RIGHT: Previously identified intra-articular fracture of the posterior tibial plateau is less conspicuous compatible with healing. Plantar calcaneal heel spur. Slight enthesopathy at the Achilles tendon insertion site. Joint space alignment are otherwise maintained. Soft tissues are unremarkable. LEFT: No acute visible fracture or dislocation. Enthesopathy at the Achilles tendon insertion site. Fabella is noted posterior compartment knee. Joint space alignment are maintained. Soft tissues are unremarkable XR/XR tibia fibula RT 2V IMPRESSION: 1. Previously identified intra-articular fracture of the posterior tibial plateau is less conspicuous compatible with healing. 2. No acute visible fracture or dislocation.
[2023-11-10 10:56] VITALS: BP 148/73; PULSE 62; RESP 17; TEMP 36.3; O2SAT 98; BMI 47.7
--- NOTE | 2023-11-10 11:12 | ED_ITS ---
HPI - General Adult General Chief complaint: Extremity Injury, Lower Stated complaint: Right foot injury Time Seen by Provider: 11/10/23 11:38 Source: patient Mode of arrival: ambulatory Limitations: no limitations History of Present Illness HPI narrative: 57 year old male with pmhx significant for DM and HTN [facility] right 5th toe pain after hitting it against a heater today. manager social work is at bedside to assist with history. Patient ambulates with walker at baseline. manager social work states he was walking to the shower when he stubbed his right 5th toe against the heater. The nail began to bleed for a few minutes and has since stopped. Given his history of diabetes, long term acute care registered nurse decided to bring him in for evaluation. Denies fever, chills, chest pain, SOB, N/V, numbness/tingling/weakness of LE, calf tenderness. Denies recent travel or long car rides. Related Data Home Medications Medication Instructions Recorded Confirmed blood sugar diagnostic #10 ea 04/13/21 06/29/22 benazepril 40 mg tablet 40 mg PO DAILY 06/28/22 06/29/22 fluoxetine 10 mg capsule 0 mg PO 06/29/22 06/29/22 lancets 28 gauge (Prodigy Twist #100 ea 06/29/22 06/29/22 Top Lancet) levothyroxine 125 mcg tablet 125 mcg PO DAILY 06/29/22 06/29/22 loratadine 10 mg tablet 10 mg PO DAILY 06/29/22 06/29/22 nystatin 100,000 unit/gram topical topical 06/29/22 06/29/22 powder (Nystop) topiramate 25 mg tablet 25 mg PO BID 06/29/22 06/29/22 valacyclovir 500 mg tablet 500 mg PO BID 04/26/23 Previous Rx's Medication Instructions Recorded acetaminophen 500 mg tablet 1,000 mg (2 x 500 mg) PO QID PRN 03/26/21 pain #30 tabs ibuprofen 600 mg tablet 600 mg PO Q6H PRN pain #20 tabs 03/26/21 lidocaine 5 % topical patch 1 patch topical DAILY PRN pain 5 03/26/21 days #15 ea doxycycline hyclate 100 mg tablet 100 mg PO Q12H 10 days #20 tabs 07/15/21 ibuprofen 600 mg tablet 600 mg PO Q6H PRN pain #30 tabs 07/15/21 tamsulosin 0.4 mg capsule 0.4 mg PO BEDTIME 90 days #90 caps 08/10/22 oxybutynin chloride 15 mg 15 mg PO BID 30 days #60 tabs 11/20/22 tablet,extended release 24 hr oxycodone 5 mg capsule 5 mg PO TID PRN pain 3 days #9 caps 04/12/23 cephalexin 500 mg capsule 500 mg PO QID 7 days #28 caps 11/10/23 neomycin-bacitracn Zn-polymyx 3.5 1 appl topical BID #28.3 grams 11/10/23 mg-400 unit-5,000 unit/gram top oint (Neosporin ([id number])) Allergies Allergy/AdvReac Type Severity Reaction Status Date / Time No Known Allergies Allergy Verified 08/12/23 11:05 [No Known Allergies*] Review of Systems 2 Review of Systems: Constitutional: No fever, chills, fatigue, night sweats, weight changes ENT/Mouth: No ear pain, hearing loss, nasal congestion, sinus pain, rhinorrhea, sore throat Eyes: No eye pain, swelling, redness, vision changes, discharge Cardio: No chest pain, palpitations, REY, orthopnea, peripheral edema Pulm: No SOB, cough, sputum, wheezing, dyspnea, hemoptysis GI: No nausea, vomiting, hematemesis, abdominal pain, diarrhea, constipation, hematochezia, melena : No irregular bleeding, dysuria, frequency, urgency, hesitancy, hematuria, flank pain, urinary flow changes, urinary incontinence or retention MSK: No back pain, neck pain, joint pain, myalgias, +right great toe pain Skin: No lesions, rashes Neuro: No weakness, numbness, paresthesias, LOC, dizziness, headache Psych: No anxiety/panic, depression, SI/HI, AH/VH All other systems reviewed and are negative. FORMERLY [facility] Past Medical History Attestation statement: The following information was validated with the patient. Source: old records reviewed and nursing notes reviewed Medical History Hypertension Diabetes mellitus type 1 Social History Social History Alcohol intake: never Patient Tobacco Use Status: Never used Tobacco Smoked in Last 30 Days: No Use of substances other than those prescribed or required for medical reasons: No Advance Directives: No Advance Directives Information Provided: Yes Physical Exam ED Vital Signs: Vital Signs - 24 hr 11/10/23 10:56 Temperature 97.3 F Pulse Rate 62 Respiratory Rate 17 Blood Pressure 148/73 H Pulse Oximetry 98 Oxygen Delivery Method Room Air BMI result Body Mass Index 47.7 Hypertensive, otherwise wnl. Const General: cooperative, comfortable, no acute distress, alert and awake Orientation/consciousness: patient oriented x3 Limitations: no limitations [facility] General nose exam: Normal external nose present Eyes General: appearance normal, both eyes and all related structures Conjunctivae: conjunctivae normal Sclerae: sclerae normal Pupils: Equal, round and reactive pupils present Neck Neck: Yes normal visual inspection and Yes no JVD Resp Effort & Inspection: normal respiratory effort Auscultation: clear to auscultation bilaterally Cardio Other: + 2+ dp/pt pulses Jugular venous distension: no JVD Rate: regular rate Rhythm: regular rhythm Skin General skin exam: no rashes or lesions noted Neuro General: patient oriented x3 and gait normal Cranial nerves: Yes Equal, round and reactive pupils present Extrem Other: + 1+ pitting edema to bilteral LE to the knees. No erythema, warmth, or coolness. 2+ dpt/pt pulses. No calf tenderness. Bilateral feet without wounds/ ulcers. Right 5th toe nail with dried blood along the cuticles. Nail slightly lifted to lateral aspect. . No subungal hematoma. no obvious deformity. nontender. General: Yes full ROM and Yes no calf tenderness Course Course Course Narrative: RMShadi; 57-year-old male history diabetes hypertension [facility] for [facility] toe pain after hitting against heater. On exam patient had bilateral lower extremity swelling with pitting edema. No redness warmth or coolness. Negative for pain on calf. Compared to prior note this is new. Patient will be sent for imaging ultrasound x-ray and labs. Reevaluation(s) Reevaluation #1: 1315-- CBC without leukocytosis. No left shift. H&H 13.5/41.7. Chemistry without acute electrolyte abnormality requiring intervention. BNP wnl at 76 > low suspicion for CHF. Venous duplex of bilateral LE does not demonstrate DVT. XR right foot does not demonstrate acute fracture or dislocation. XR bilateral tib/fib does not demonstrate acute fracture or dislocation. There is not a clear etiology to patient's pitting edema. On talking to him and his long term acute care registered nurse, this is his baseline. I advised them to follow up with PCP regarding his LE swelling. As for the right 5th digit, I am not concerned for acute nail bed injury or fracture. Given the nail is partially lifted, will prescribe bacitracin to apply to the area to prevent infection. I informed patient that his toe nail will likely fall off. Discussed worrisome s/sx and when to return to the ED. Patient has remained stable throughout ED visit today. All questions answered at this time. Patient is agreeable with disposition and stable for discharge. Medical Decision Making Medical Decision Making MDM Narrative: 57 year old male with pmhx significant for DM and HTN [facility] of right 5th toe pain after hitting it against a heater today. Patient hypertensive to 148/73, vitals otherwise wnl. Nontoxic appearing and in NAD. Lying comfortably on the exam bed with long term acute care registered nurse at bedside. On exam, lungs cta b/l. RRR. No JVD. 1+ pitting edema to bilteral LE to the knees. No erythema, warmth, or coolness. 2+ dpt/pt pulses. No calf tenderness. Bilateral feet without wounds/ ulcers. Right 5th toe nail with dried blood along the cuticles. Nail slightly lifted to lateral aspect. No subungal hematoma. Clinical concern for toe nail injury, toe nail avulsion. Lower supsicion for subungal hematoma. Unlikely nail bed injury, diabetic foot ulcer/ wound. Concern for DVT, CHF, fracture. Lower concern for NV compromise, compartment syndrome or threat to limb. XRs, venous duplex, and labs obtained in triage. Plan for review and re-evaluation. Differential Diagnosis Differential Diagnoses: The differential diagnosis associated with the presentation includes as above. Admission/Observation Not indicated. Lab Data [facility] Lab Attestation statement: I reviewed the patient's lab results. as above. 11/10/23 11:26 11/10/23 11:26 Labs: Lab Results 11/10/23 Range/Units 11:26 WBC 8.4 (4.8-10.8) X10*3/uL RBC 4.79 (4.60-5.80) X10*6/uL Hgb 13.5 L (14.0-18.0) g/dl Hct 41.7 L (42.0-52.0) % MCV 87.1 (80.0-98.0) fL MCH 28.2 (27.0-33.0) pg MCHC 32.4 (31.0-36.0) g/dl RDW 14.6 (11.0-16.0) % Plt Count 279 (160-400) X10*3/uL MPV 10.3 (9.4-12.4) fL Immature Gran % (Auto) 0.5 H (0.0-0.4) % Neut % (Auto) 59.4 (45-73) % Lymph % (Auto) 21.3 (20-40) % Kendall % (Auto) 12.7 H (2-11) % Eos % (Auto) 5.5 H (0-4) % Baso % (Auto) 0.6 (0-2) % Lymph # (Auto) 1.8 (1.2-4.9) X10*3/uL Kendall # (Auto) 1.1 (0.1-1.2) X10*3/uL Eos # (Auto) 0.5 H (0.0-0.4) X10*3/uL Baso # (Auto) 0.1 (0.0-0.2) X10*3/uL Abs Immat Gran (auto) 0.04 H (0.00-0.03) X10*3/uL Absolute Neuts (auto) 5.0 (2.0-8.3) x10*3/uL Absolute Nucleated RBC 0.000 (0.0-0.012) X10*3/uL Nucleated RBC % (auto) 0.0 (0.0-0.2) /100WBC Sodium 144 (135-145) mmol/L Potassium 3.5 (3.3-5.1) mmol/L Chloride 111 H (96-108) mmol/L Carbon Dioxide 24 (22-29) mmol/L Anion Gap 13 (12-20) BUN 17 H (9-16) mg/dL Creatinine 0.76 (0.5-1.4) mg/dL Estim Creat Clear Calc 118.4 Estimated GFR > 60 Random Glucose 98 (60-115) mg/dL Calcium 8.4 (8.4-10.2) mg/dL Total Bilirubin 0.4 (0.0-1.0) mg/dL AST 36 (5-37) U/L ALT 25 (0-40) U/L Alkaline Phosphatase 85 (39-117) U/L B-Natriuretic Peptide 76 (<100) pg/mL Total Protein 6.8 (6.5-8.0) g/dL Albumin 3.5 (3.5-5.0) g/dL Independent Interpretation I performed an independent interpretation of an: Plain X-Ray and Ultrasound Interpretation: I have personally reviewed xrays and agree with radiologist's interpretation. I have personally reviewed ultrasound and agree with radiologist's interpretation. Radiology Impression Discussion of test interpretation with radiology: I have reviewed the radiologist's reading. Radiologist Impression: XR tibia fibula LT/RT 2V IMPRESSION: 1. Previously identified intra-articular fracture of the posterior tibial plateau is less conspicuous compatible with healing. 2. No acute visible fracture or dislocation. XR foot RT 2V IMPRESSION: 1. No acute visible fracture or dislocation. 2. Degenerative changes with plantar calcaneal heel spur, enthesopathy at the Achilles tendon insertion site, and pes planus. 3. Mild soft tissue prominence about the forefoot. US venous duplex LE BI IMPRESSION: No DVT demonstrated in the bilateral lower extremity. Independent Historian Clinical information obtained from an independent historian. History obtained from or confirmed by: Other (long term acute care registered nurse) External Record Review External record reviewed: Inpatient record Prescription Management I considered prescription management with: Pain Medication and Antibiotic Chronic Conditions Patient?s care impacted by: Diabetes Social Determinants Patient?s care significantly limited by Social Determinants of Health including: Other Social Determinant of Health Core Measures AMI core measures followed: No Critical Care Time Critical Care Time Critical Care Time: No Discharge Plan Discharge Clinical Impression: Pain of toe, Mild peripheral edema Patient Disposition: Home, Self-Care Instructions: Cephalexin (By mouth), Acute Wounds (ED) Additional Instructions: You were evaluated in the ED today for right little toe pain after stubbing it. Your lab work today was normal. The ultrasound of both of your legs did not demonstrate acute clot. The x-rays of your right foot and both lower legs do not show acute fracture. Your right 5th toenail will likely fall off. Please apply bacitracin or Neosporin to the area to prevent infection. You have also been started on prophylactic antibiotics. Keflex is an antibiotic that has been sent to your pharmacy. Take this 4 times daily for the next 7 days. Do not stop this medication early or miss any doses as this may increase chances of infection. Please follow-up with PCP. If symptoms persist or worsen please return to the ED. In the case of an emergency call 911. Prescriptions: New cephalexin 500 mg capsule 500 mg PO QID 7 Days Qty: 28 0RF Neosporin (ldb-hxm-yiqol) 3.5mg-400 unit- 5,000 unit/gram ointment 1 appl topical BID Qty: 28.3 0RF No Action tamsulosin 0.4 mg capsule 0.4 mg PO BEDTIME 90 Days Qty: 90 1RF oxybutynin chloride 15 mg tablet extended release 24hr 15 mg PO BID 30 Days Qty: 60 1RF acetaminophen 500 mg tablet 1,000 mg PO QID PRN (Reason: pain) Qty: 30 0RF ibuprofen 600 mg tablet 600 mg PO Q6H PRN (Reason: pain) Qty: 20 0RF lidocaine 5 % adhesive patch,medicated 1 patch topical DAILY PRN (Reason: pain) 5 Days Qty: 15 0RF Rx Instructions: leave on most painful area for up to 12 hrs ibuprofen 600 mg tablet 600 mg PO Q6H PRN (Reason: pain) Qty: 30 0RF doxycycline hyclate 100 mg tablet 100 mg PO Q12H 10 Days Qty: 20 0RF oxycodone 5 mg capsule 5 mg PO TID PRN (Reason: pain) 3 Days Qty: 9 0RF Rx Instructions: Partial Fill upon patient request. (DME) FreeStyle Lite Strips Strip See Rx Instructions Not Applicable DAILY Qty: 10 Rx Instructions: As directed benazepril 40 mg tablet 40 mg PO DAILY topiramate 25 mg tablet 25 mg PO BID levothyroxine 125 mcg tablet 125 mcg PO DAILY fluoxetine 10 mg capsule 0 mg PO nystatin [Nystop] 100,000 unit/gram powder topical loratadine 10 mg tablet 10 mg PO DAILY (DME) lancets [Prodigy Twist Top Lancet] 28 gauge misc See Rx Instructions .ROUTE .MEDSUPPLY Qty: 100 Rx Instructions: As directed valacyclovir 500 mg tablet 500 mg PO BID Referrals: Kolby Lea MD [Primary Care Provider] - Interventions: ED Discharge Assessment Last Done: 11/10/23 14:02 Discharge Date/Time: 11/10/23 14:03
[2023-11-10 11:33] LABS: MANUAL DIFF FLAG NO
[2023-11-10 11:34] LABS: Basophils Absolute Auto 0.1 X10*3/uL (0.0-0.2); Basophils Percent Auto 0.6 % (0-2); Eosinophils Absolute Auto 0.5 X10*3/uL (0.0-0.4); Eosinophils Percent Auto 5.5 % (0-4); Hematocrit 41.7 % (42.0-52.0); Hemoglobin 13.5 g/dl (14.0-18.0); Imm Gran Abs Auto 0.04 X10*3/uL (0.00-0.03); Imm Gran Pct Auto 0.5 % (0.0-0.4); Lymphocytes Absolute Auto 1.8 X10*3/uL (1.2-4.9); Lymphocytes Percent Auto 21.3 % (20-40); Mean Corpuscular HGB Conc 32.4 g/dl (31.0-36.0); Mean Corpuscular Hemoglobin 28.2 pg (27.0-33.0); Mean Corpuscular Volume 87.1 fL (80.0-98.0); Mean Platelet Volume 10.3 fL (9.4-12.4); Monocytes Absolute Auto 1.1 X10*3/uL (0.1-1.2); Monocytes Percent Auto 12.7 % (2-11); Neutrophils Percent Auto 59.4 % (45-73); Platelet Count 279 X10*3/uL (160-400); Red Blood Count 4.79 X10*6/uL (4.60-5.80); Red Cell Distribution Width 14.6 % (11.0-16.0); White Blood Count 8.4 X10*3/uL (4.8-10.8)
[2023-11-10 12:03] LABS: Alanine Aminotransferase 25 U/L (0-40); Albumin Level 3.5 g/dL (3.5-5.0); Alkaline Phosphatase 85 U/L (39-117); Anion Gap 13 (12-20); Aspartate Amino Transferase 36 U/L (5-37); Bilirubin Total 0.4 mg/dL (0.0-1.0); Blood Urea Nitrogen 17 mg/dL (9-16); Calcium 8.4 mg/dL (8.4-10.2); Carbon Dioxide 24 mmol/L (22-29); Chloride 111 mmol/L (96-108); Creatinine Clr Calc Pharmacy 118.4; Estimated Glomerular Filt Rate > 60; Glucose Random 98 mg/dL (60-115); Potassium 3.5 mmol/L (3.3-5.1); Sodium 144 mmol/L (135-145); Total Protein 6.8 g/dL (6.5-8.0)
[2023-11-10 12:07] LABS: B Type Natriuretic Peptide 76 pg/mL (<100)
== END 2023-11-10 14:03 | disposition home or self-care (01) ==
PROVIDERS: Physician Assistant; Emergency Provider Student in an Organized Health Care Education/Training Program; PCP Family Medicine
DX: M79.671 Pain in right foot (principal); R26.2 Difficulty in walking, not elsewhere classified; R60.0 Localized edema; I10 Essential (primary) hypertension; Z79.899 Other long term (current) drug therapy
CPT/HCPCS: 36415; 73590; 73620; 80053; 83880; 85025; 93970; 99284

== ENCOUNTER 2024-01-29 08:55 | Outpatient (AMB) | payer MEDICARE, MEDICAID, SELFPAY ==
--- NOTE | 2024-01-29 09:24 | A.OFFVIS_ITS ---
Intake Visit Reasons: bladder obs/Follow up Intake Note: Patient is present for PVR Follow Up Urology Medications: none Blood thinner: none Post Void Residual: 11ml's Search Marketing Coordinator Required: No Accompanied by: Self / Same As Patient Allergies No Known Allergies [No Known Allergies*] Allergy (Verified 01/30/24 09:53) Medication List - Last Reconciled 01/30/24 by RAMON Franco- benazepril 40 mg PO DAILY blood sugar diagnostic As directed fluoxetine 30 mg PO lancets (Prodigy Twist Top Lancet) As directed levothyroxine 125 mcg PO DAILY nystatin (Nystop) topical topiramate 25 mg PO BID HPI Comments Details: Juan is a pleasant 58-year-old male patient of who was accompanied by his staff member Thelma at today's office visit. He has a past medical history of hypertension, diabetes, and developmental delay. He presents to the office today for follow-up of his urinary incontinence and lower urinary tract symptoms. In discussion with the patient and his staff member today who provides much of today's history given patient history of developmental delay it appears patient with episodes of stress urinary incontinence. In review of patient's chart it appears he has previously seen Dr. Ortiz at which time he had trialed Ditropan and Myrbetriq. In review of patient's med reconciliation it does not appear he is on any urological medications at this time. In office urinalysis results reviewed with the patient and his marine photographer today. PVR 11 mL. Discussed timed/scheduled voiding to decreased episodes of urge incontinence given decreased mobility as well as attempting to sit when voiding to relax pelvis to assist with urinary hesitancy. When asked patient and marine photographer otherwise deny hematuria, dysuria, foul smelling urine, changes to urinary stream, flank pain, fever, and or chills. [facility] Medical History Hypertension Diabetes mellitus type 1 Social History Alcohol intake: never Patient Tobacco Use Status: Never used Tobacco Review of Systems Const Unobtainable due to mental condition Physical Exam Const General: cooperative, healthy appearing, comfortable, no acute distress, well developed, alert and awake Orientation/consciousness: oriented to person Limitations: ambulation with walker and wheelchair HEENT Head: Yes normal to inspection, Yes normocephalic and Yes atraumatic Ears: hearing grossly normal bilaterally Eyes General: appearance normal, both eyes and all related structures Neck Neck: Yes normal visual inspection and Yes trachea midline Chest Chest palpation & inspection: normal inspection of the chest Resp Effort & Inspection: normal respiratory effort and able to speak in complete sentences Cardio Rate: regular rate GI Inspection: Yes normal to inspection General: Yes no CVA tenderness Back/Spine/Pelvis Back: no CVA tenderness Skin General skin exam: no rashes or lesions noted Neuro General: oriented to person Extrem General: Yes normal to inspection Psych Appearance: grossly normal and well kempt Mental Status: other Speech and movement: Slowed speech present (Psych) Affect: normal affect Attitude: cooperative Insight: Limited insight present (Psych) Judgement: Limited judgement present (Psych) Office Procedures Post Void Residual Post Residual Void Post Void Residual (PVR): 11 77133-[id number] Void Residual by ultrasound Results AMB Urinalysis, Automated UA Leukoctes 0 Gustabo/uL Last Edit by Guy Brumfield on 01/29/24 10:00 UA Nitrite Negative Last Edit by Guy Brumfield on 01/29/24 10:00 UA Urobilinogen 0.2 mg/dL Last Edit by Guy Brumfield on 01/29/24 10:00 UA Protein 0 mg/dL Last Edit by Guy Brumfield on 01/29/24 10:53 UA [facility] 01/29/24 10:53 UA pH 7.0 Last Edit by Guy Brumfield on 01/29/24 10:53 [facility]A [facility] 01/29/24 10:53 UA Blood 0 Harish/uL Last Edit by Guy Brumfield on 01/29/24 10:00 UA Specific [place] 1.010 Last Edit by Guy Brumfield on 01/29/24 10:53 UA Specific [place] previously reported as 1.020 Macnelda Mcconnell 01/29/24 10:53 UA Ketone Negative Last Edit by Guy Brumfield on 01/29/24 10:00 UA Bilirubin 0 mg/dL Last Edit by Guy Brumfield on 01/29/24 10:00 UA Glucose 0 mg/dL Last Edit by Guy Brumfield on 01/29/24 10:00 Results Reviewed Results Reviewed: Laboratory Last Values Urine pH (Auto) 7.0 01/29/24 09:48 Specific [place] (Auto) 1.010 01/29/24 09:48 Urine Protein (Auto) 0 mg/dL 01/29/24 09:48 Glucose (UA)(Auto) 0 mg/dL 01/29/24 09:48 Urine Ketones (Auto) Negative 01/29/24 09:48 Urine Blood (Auto) 0 Harish/uL 01/29/24 09:48 Urine Nitrite (Auto) Negative 01/29/24 09:48 Urine Bilirubin (Auto) 0 mg/dL 01/29/24 09:48 Urine Urobilinogen (Auto) 0.2 mg/dL 01/29/24 09:48 Leukocyte Esterase (Auto) 0 Gustabo/uL 01/29/24 09:48 Assessment & Plan Assessment & Plan (1) Urge incontinence: Code(s): N39.41 - Urge incontinence Category: Medical (2) Urinary hesitancy due to benign prostatic hyperplasia: Code(s): N40.1 - Benign prostatic hyperplasia with lower urinary tract symptoms; R39.11 - Hesitancy of micturition Category: Medical Plan In office urinalysis results reviewed with the patient his case workers today; as noted above. PVR 11 mL. Discussed at length lifestyle modifications to assist with stress incontinence as well as urinary hesitancy Will obtain retroperitoneal ultrasound for further assessment evaluation. Will obtain PSA for further assessment evaluation. Discussed possible near future in office cystoscopy and or urodynamics for further assessment evaluation. Follow-up in 1-3 months with imaging and lab to be completed prior; or sooner with any issues, concerns, and or questions. Orders: Orders AMB Post Void Residual by ultrasound 01/29/24 N32.0 - Bladder-neck obstruction US retroperitoneal comp 01/29/24 N39.41 - Urge incontinence, N40.1 - Benign prostatic hyperplasia with lower urinary tract symptoms, R39.11 - Hesitancy of micturition AMB Urinalysis Automated 01/29/24 Z13.9 - Encounter for screening, unspecified Prostate Specific Antigen 01/29/24 N32.0 - Bladder-neck obstruction Patient Instructions: The patient had an opportunity to ask questions regarding the treatment plan. All questions were answered. Physical exam, labs, and imaging were discussed and reviewed in detail. As well as risks, benefits, and discussion of treatment choices. No major barriers to understanding were identified. The patient expressed understanding and agreement with the above treatment plan. The patient was made aware they should contact our office by phone for worsening of their current condition, the appearance of new symptoms, or with any questions or concerns. Compliance is encouraged with any medications and follow up testing that is ordered. It is a privilege to be allowed the opportunity to participate in? your urological care.? Again, if you have any questions or concerns If you have any questions or concerns please do not hesitate to contact me. The office is [phone]. This note is constructed using voice recognition software. While every effort has been made to ensure accuracy environmental field technician errors may have been included. Yours sincerely, WYATT Franco Coding Level of Care Code Est Pt Level 4 (88913) Diagnoses Urge incontinence N39.41 Urinary hesitancy due to benign prostatic hyperplasia N40.1; R39.11 CPT Codes Post Residual Void - PVR CPT Code: 76832-Mhpb Void Residual by ultrasound ([id number]) Time Spent (min) 30
== END 2024-01-29 10:04 | disposition home or self-care (01) ==
PROVIDERS: PCP Family Medicine; Visit Provider Nurse Practitioner Family
DX: N39.41 Urge incontinence (principal); N40.1 Benign prostatic hyperplasia with lower urinary tract symptoms; R39.11 Hesitancy of micturition
CPT/HCPCS: 99214

== ENCOUNTER → 2024-01-29 08:55 | Outpatient (BNVA) | payer MEDICARE, MEDICAID, SELFPAY | PROVIDERS: PCP Family Medicine; Visit Provider Nurse Practitioner Family | DX: N40.1 Benign prostatic hyperplasia with lower urinary tract symptoms (principal); N39.41 Urge incontinence; R39.11 Hesitancy of micturition | CPT/HCPCS: 51798; 81003; 99212 ==

== ENCOUNTER 2024-03-26 12:34 | Outpatient (REF) | payer MEDICARE, MEDICAID, SELFPAY ==
--- NOTE | ~2024-03-26 | US_ITS ---
EXAMINATION: US RETROPERITONEAL COMPLETE (RENAL) CLINICAL INFORMATION: Urge incontinence. COMPARISON: None available. TECHNIQUE: Real-time imaging of the kidneys and bladder. Technically limited study secondary to body habitus. FINDINGS: RIGHT KIDNEY: 10.7 x 4.4 x 5.7 cm (SAG x AP x TRV). The kidney is normal in size, contour, and echogenicity. Renal cortical thickness is normal. No calculi or focal parenchymal lesions. No hydronephrosis. LEFT KIDNEY: 11.2 x 3.6 x 5.0 cm (SAG x AP x TRV). The kidney is normal in size, contour, and echogenicity. Renal cortical thickness is normal. No calculi or focal parenchymal lesions. No hydronephrosis. BLADDER: The bladder wall is thickened and mildly trabeculated. Bilateral ureteral jets are demonstrated. Prevoid bladder volume is 234 mL. Postvoid bladder volume is 22 mL. ADDITIONAL FINDINGS: Prostate is normal in volume of 18 mL. US/US retroperitoneal comp IMPRESSION: 1. Normal-appearing kidneys. 2. Thickened trabeculated bladder wall.
== END 2024-03-26 12:35 | disposition home or self-care (01) ==
LOC: HO.HMGCX 12:34
PROVIDERS: PCP Family Medicine; Visit Provider Nurse Practitioner Family
DX: N39.41 Urge incontinence (principal); N40.1 Benign prostatic hyperplasia with lower urinary tract symptoms; R39.11 Hesitancy of micturition
CPT/HCPCS: 76770

== ENCOUNTER 2024-04-06 16:22 | Outpatient (REF) | payer MEDICARE, MEDICAID, SELFPAY | END 2024-04-06 16:23 | disposition home or self-care (01) | LOC: HO.LAB 16:22 | PROVIDERS: Visit Provider Nurse Practitioner Family | DX: N32.0 Bladder-neck obstruction (principal); Z12.5 Encounter for screening for malignant neoplasm of prostate | CPT/HCPCS: 36415; 84153 ==

== ENCOUNTER 2024-04-07 09:46 | Outpatient (AMB) | payer MEDICARE, MEDICAID, SELFPAY ==
--- NOTE | 2024-04-07 09:50 | A.OFFVIS_ITS ---
Intake Visit Reasons: 2m/US/PSA Clinical Nursing Assistant Required: No Allergies No Known Allergies [No Known Allergies*] Allergy (Verified 04/07/24 09:56) Medication List - Last Reconciled 04/07/24 by WYATT Franco benazepril 40 mg PO DAILY blood sugar diagnostic As directed fluoxetine 30 mg PO lancets (Prodigy Twist Top Lancet) As directed levothyroxine 125 mcg PO DAILY nystatin (Nystop) topical topiramate 25 mg PO BID HPI Comments Details: Juan is a pleasant 58-year-old male patient of who was accompanied by his staff member/plc programmer at today's office visit. He has a past medical history of hypertension, diabetes, and developmental delay. He presents to the office today for follow-up of his urinary incontinence and lower urinary tract symptoms. Of note, patient was seen approximately 2 months ago at which time a retroperitoneal ultrasound was ordered for further assessment evaluation. These results were reviewed with the patient and staff member today who is accompanied by the patient and provides much of today's history given patient history of developmental delay. Bilateral kidneys with no calculi, lesions, and or hydronephrosis. The bladder wall is thickened and mi ldly trabeculated. Pre void bladder volume is approximately 230 mL. Postvoid bladder volume is approximately 20 mL. Prostate is normal volume at 18 mL. PSA 04/29 0.2. Discussed at length potential causes for lower urinary tract symptoms patient is experiencing. Discussed further treatment options for lower urinary tract symptoms. In office urinalysis results reviewed with the patient and his member services coordinator today. PVR 26mls. Recommendations were made for timed/scheduled voiding to decreased episodes of urge incontinence given decreased mobility as well as attempting to sit when voiding to relax pelvis to assist with urinary hesitancy however it appears there has been some changes to patient's prison and this has not been followed through. When asked patient and member services coordinator otherwise deny hematuria, dysuria, foul smelling urine, changes to urinary stream, flank pain, fever, and or chills. [facility] Medical History Hypertension Diabetes mellitus type 1 Social History Alcohol intake: never Patient Tobacco Use Status: Never used Tobacco Review of Systems Const Unobtainable due to mental condition Physical Exam Const General: cooperative, healthy appearing, comfortable, no acute distress, well developed, alert and awake Orientation/consciousness: oriented to person Limitations: ambulation with walker and wheelchair HEENT Head: Yes normal to inspection, Yes normocephalic and Yes atraumatic Ears: hearing grossly normal bilaterally Eyes General: appearance normal, both eyes and all related structures Neck Neck: Yes normal visual inspection and Yes trachea midline Chest Chest palpation & inspection: normal inspection of the chest Resp Effort & Inspection: normal respiratory effort and able to speak in complete sentences Cardio Rate: regular rate GI Inspection: Yes normal to inspection General: Yes no CVA tenderness Back/Spine/Pelvis Back: no CVA tenderness Skin General skin exam: no rashes or lesions noted Neuro General: oriented to person Extrem General: Yes normal to inspection Psych Appearance: grossly normal and well kempt Mental Status: other Speech and movement: Slowed speech present (Psych) Affect: normal affect Attitude: cooperative Insight: Limited insight present (Psych) Judgement: Limited judgement present (Psych) Office Procedures Post Void Residual Post Residual Void Post Void Residual (PVR): 26 [id number]-Cziq Void Residual by ultrasound Results AMB Urinalysis, Automated UA Leukoctes 0 Gustabo/uL Last Edit by Tianna Cardona CMA on 04/07/24 10:58 UA Nitrite Negative Last Edit by Tianna Cardona CMA on 04/07/24 10:58 UA Urobilinogen 0.2 mg/dL Last Edit by Tianna Cardona CMA on 04/07/24 10:5 8 UA Protein 0 mg/dL Last Edit by Tianna Cardona CMA on 04/07/24 10:58 UA pH 6.5 Last Edit by Tianna Cardona CMA on 04/07/24 10:58 UA Blood 0 Harish/uL Last Edit by Tianna Cardona CMA on 04/07/24 10:58 UA Specific [place] 1.015 Last Edit by Tianna Cardona CMA on 04/07/24 10: 58 UA Ketone Negative Last Edit by Tianna Cardona CMA on 04/07/24 10:58 UA Bilirubin 0 mg/dL Last Edit by Tianna Cardona CMA on 04/07/24 10:58 UA Glucose 0 mg/dL Last Edit by Tianna Cardona CMA on 04/07/24 10:58 Results Reviewed Results Reviewed: Laboratory Last Values Urine pH (Auto) 6.5 04/07/24 09:56 Specific [place] (Auto) 1.015 04/07/24 09:56 Urine Protein (Auto) 0 mg/dL 04/07/24 09:56 Glucose (UA)(Auto) 0 mg/dL 04/07/24 09:56 Urine Ketones (Auto) Negative 04/07/24 09:56 Urine Blood (Auto) 0 Harish/uL 04/07/24 09:56 Urine Nitrite (Auto) Negative 04/07/24 09:56 Urine Bilirubin (Auto) 0 mg/dL 04/07/24 09:56 Urine Urobilinogen (Auto) 0.2 mg/dL 04/07/24 09:56 Leukocyte Esterase (Auto) 0 Gustabo/uL 04/07/24 09:56 Date of Service: 03/26/24 EXAMINATION: US RETROPERITONEAL COMPLETE (RENAL) FINDINGS: RIGHT KIDNEY: 10.7 x 4.4 x 5.7 cm (SAG x AP x TRV). The kidney is normal in size, contour, and echogenicity. Renal cortical thickness is normal. No calculi or focal parenchymal lesions. No hydronephrosis. LEFT KIDNEY: 11.2 x 3.6 x 5.0 cm (SAG x AP x TRV). The kidney is normal in size, contour, and echogenicity. Renal cortical thickness is normal. No calculi or focal parenchymal lesions. No hydronephrosis. BLADDER: The bladder wall is thickened and mildly trabeculated. Bilateral ureteral jets are demonstrated. Prevoid bladder volume is 234 mL. Postvoid bladder volume is 22 mL. ADDITIONAL FINDINGS: Prostate is normal in volume of 18 mL. IMPRESSION: 1. Normal-appearing kidneys. 2. Thickened trabeculated bladder wall. Assessment & Plan Assessment & Plan (1) Urinary hesitancy due to benign prostatic hyperplasia: Code(s): N40.1 - Benign prostatic hyperplasia with lower urinary tract symptoms; R39.11 - Hesitancy of micturition Category: Medical (2) Bladder outlet obstruction: Code(s): N32.0 - Bladder-neck obstruction Category: Medical (3) Urge incontinence: Code(s): N39.41 - Urge incontinence Category: Medical (4) Urinary urgency: Code(s): R39.15 - Urgency of urination Category: Medical (5) Bladder wall thickening: Code(s): N32.89 - Other specified disorders of bladder Category: Medical Plan In office urinalysis results reviewed with the patient today; as noted above. PVR 26 mL. Recent PSA results reviewed with the patient and staff member today; as noted above. Recent retroperitoneal ultrasound results reviewed with the patient and member services coordinator today; as noted above. Discussed at length potential causes for lower urinary tract symptoms patient is experiencing as well as further treatment options to include lifestyle modifications as well as medications; risks and benefits of these interventions were discussed. Start Myrbetriq 25 mg daily. Start with lifestyle modifications as discussed. Follow-up in 6-8 weeks with PVR; or sooner with any issues, concerns, and or questions. Orders: Orders AMB Urinalysis Automated 04/07/24 Z13.9 - Encounter for screening, unspecified, N40.1 - Benign prostatic hyperplasia with lower urinary tract symptoms, R39.11 - Hesitancy of micturition AMB Post Void Residual by ultrasound 04/07/24 N40.1 - Benign prostatic hyperplasia with lower urinary tract symptoms, R39.11 - Hesitancy of micturition Medications: New mirabegron ER (Myrbetriq) 25 mg PO DAILY 30 tabs 2RF 30 days R39.15 - Urgency of urination, N30.10 - Interstitial cystitis (chronic) without hematuria, R35.1 - Nocturia, N32.81 - Overactive bladder Patient Instructions: The patient had an opportunity to ask questions regarding the treatment plan. All questions were answered. Physical exam, labs, and imaging were discussed and reviewed in detail. As well as risks, benefits, and discussion of treatment choices. No major barriers to understanding were identified. The patient expressed understanding and agreement with the above treatment plan. The patient was made aware they should contact our office by phone for worsening of their current condition, the appearance of new symptoms, or with any questions or concerns. Compliance is encouraged with any medications and follow up testing that is ordered. It is a privilege to be allowed the opportunity to participate in? your urological care.? Again, if you have any questions or concerns If you have any questions or concerns please do not hesitate to contact me. The office is [phone]. This note is constructed using voice recognition software. While every effort has been made to ensure accuracy right of way worker errors may have been included. Yours sincerely, RAMON Franco- Coding Level of Care Code Est Pt Level 4 (38392) Diagnoses Urinary hesitancy due to benign prostatic hyperplasia N40.1; R39.11 Bladder outlet obstruction N32.0 Urge incontinence N39.41 Urinary urgency R39.15 Bladder wall thickening N32.89 CPT Codes Post Residual Void - PVR CPT Code: 41918-Tifg Void Residual by ultrasound ([id number])
== END 2024-04-07 11:16 | disposition home or self-care (01) ==
PROVIDERS: PCP Family Medicine; Visit Provider Nurse Practitioner Family
DX: N40.1 Benign prostatic hyperplasia with lower urinary tract symptoms (principal); R39.11 Hesitancy of micturition; N32.0 Bladder-neck obstruction; N39.41 Urge incontinence; R39.15 Urgency of urination; N32.89 Other specified disorders of bladder
CPT/HCPCS: 99214

== ENCOUNTER → 2024-04-07 09:46 | Outpatient (BNVA) | payer MEDICARE, MEDICAID, SELFPAY | PROVIDERS: PCP Family Medicine; Visit Provider Nurse Practitioner Family | DX: N40.1 Benign prostatic hyperplasia with lower urinary tract symptoms (principal); N13.8 Other obstructive and reflux uropathy; R39.11 Hesitancy of micturition; N32.0 Bladder-neck obstruction; N32.89 Other specified disorders of bladder; N39.41 Urge incontinence | CPT/HCPCS: 51798; 81003; 99212 ==

== ENCOUNTER 2024-06-02 11:09 | Outpatient (AMB) | payer MEDICARE, MEDICAID, SELFPAY ==
--- NOTE | 2024-06-02 11:52 | MHC.OFFVIS ---
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 He has a past medical history of hypertension, diabetes, and developmental delay. He presents to the office today for follow-up of his urinary incontinence and lower urinary tract symptoms (urinary urgency and urinary frequency). Of note, patient was seen approximately 6 weeks ago at which time he was started on Gemtesa 75 mg daily for ongoing urinary issues he had been experiencing. In discussion with the patient and staff that is accompanied by patient today patient has had significant improvement in his urinary symptoms he had been experiencing. Staff member today who is accompanied by the patient and provides much of today's history given patient history of developmental delay also reports feeling Gemtesa has significantly helped the patients lower urinary tract symptoms. They report less urinary accidents and feels urinary urgency and frequency has significantly improved. Previous workup has included a retroperitoneal ultrasound noting bilateral kidneys with no calculi, lesions, and or hydronephrosis. The bladder wall is thickened and mildly trabeculated. Pre void bladder volume is approximately 230 mL. Postvoid bladder volume is approximately 20 mL. Prostate is normal volume at 18 mL. PSA 04/29 0.2. In office urinalysis results reviewed with the patient and staff today. PVR 75 mL. Discussed continuing with timed/scheduled voiding to decreased episodes of urge incontinence given decreased mobility as well as attempting to sit when voiding to relax pelvis to assist with urinary hesitancy. 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 [facility] Medical History Hypertension Diabetes mellitus type 1 Social History Alcohol intake: never Patient Tobacco Use Status: Never used Tobacco Review of Systems Const Unobtainable due to mental condition Physical Exam Const General: cooperative, healthy appearing, comfortable, no acute distress, well developed, alert and awake Orientation/consciousness: oriented to person Limitations: ambulation with walker and wheelchair HEENT Head: Yes normal to inspection, Yes normocephalic and Yes atraumatic Ears: hearing grossly normal bilaterally Eyes General: appearance normal, both eyes and all related structures Neck Neck: Yes normal visual inspection and Yes trachea midline Chest Chest palpation & inspection: normal inspection of the chest Resp Effort & Inspection: normal respiratory effort and able to speak in complete sentences Cardio Rate: regular rate GI Inspection: Yes normal to inspection General: Yes no CVA tenderness Back/Spine/Pelvis Back: no CVA tenderness Skin General skin exam: no rashes or lesions noted Neuro General: oriented to person Extrem General: Yes normal to inspection Psych Appearance: grossly normal and well kempt Mental Status: other Speech and movement: Slowed speech present (Psych) Affect: normal affect Attitude: cooperative Insight: Limited insight present (Psych) Judgement: Limited judgement present (Psych) Office Procedures Post Void Residual Post Residual Void Post Void Residual (PVR): 75 [id number] Void Residual by ultrasound Results AMB Urinalysis, Automated UA Leukoctes 0 Gustabo/uL Last Edit by Guy Brumfield on 06/02/24 11:56 UA Nitrite Last Edit by Guy Brumfield on 06/02/24 11:56 UA Urobilinogen 0.2 mg/dL Last Edit by Guy Brumfield on 06/02/24 11:56 UA Protein 0 mg/dL Last Edit by Guy Brumfield on 06/02/24 11:56 UA pH 6.5 Last Edit by Guy Brumfield on 06/02/24 11:56 UA Blood 0 Harish/uL Last Edit by Guy Brumfield on 06/02/24 11:56 UA Specific Davison 1.010 Last Edit by Guy Brumfield on 06/02/24 11:56 UA Ketone Negative Last Edit by Guy Brumfield on 06/02/24 11:56 UA Bilirubin 0 mg/dL Last Edit by Guy Brumfield on 06/02/24 11:56 UA Glucose 0 mg/dL Last Edit by Guy Brumfield on 06/02/24 11:56 Results Reviewed Results Reviewed: Laboratory Last Values Urine pH (Auto) 6.5 06/02/24 11:55 Specific Davison (Auto) 1.010 06/02/24 11:55 Urine Protein (Auto) 0 mg/dL 06/02/24 11:55 Glucose (UA)(Auto) 0 mg/dL 06/02/24 11:55 Urine Ketones (Auto) Negative 06/02/24 11:55 Urine Blood (Auto) 0 Harish/uL 06/02/24 11:55 Urine Bilirubin (Auto) 0 mg/dL 06/02/24 11:55 Urine Urobilinogen (Auto) 0.2 mg/dL 06/02/24 11:55 Leukocyte Esterase (Auto) 0 Gustabo/uL 06/02/24 11:55 Assessment & Plan Assessment & Plan (1) Urinary hesitancy due to benign prostatic hyperplasia: Code(s): N40.1 - Benign prostatic hyperplasia with lower urinary tract symptoms; R39.11 - Hesitancy of micturition Category: Medical (2) Bladder outlet obstruction: Code(s): N32.0 - Bladder-neck obstruction Category: Medical (3) Urge incontinence: Code(s): N39.41 - Urge incontinence Category: Medical (4) Urinary urgency: Code(s): R39.15 - Urgency of urination Category: Medical (5) Bladder wall thickening: Code(s): N32.89 - Other specified disorders of bladder Category: Medical Plan In office urinalysis results reviewed with the patient today; as noted above. PVR 75 mL. Continue with timed/scheduled voiding. Discussed bladder triggers/irritants. Patient otherwise denies any bothersome urinary issues. He reports be happy with current voiding parameters on Gemtesa; will continue; refill provided Follow-up in 6 months with PVR; or sooner with any issues, concerns, and or questions. Orders: Orders AMB Post Void Residual by ultrasound Today N40.1 - Benign prostatic hyperplasia with lower urinary tract symptoms, R39.11 - Hesitancy of micturition AMB Urinalysis Automated Today Z13.9 - Encounter for screening, unspecified Medications: Changed From vibegron (Gemtesa) 75 mg PO DAILY 30 days 30 tabs 2RF N32.81 - Overactive bladder To vibegron (Gemtesa) 75 mg PO DAILY 90 days 90 tabs 2RF N32.81 - Overactive bladder Patient Instructions: The patient had an opportunity to ask questions regarding the treatment plan. All questions were answered. Physical exam, labs, and imaging were discussed and reviewed in detail. As well as risks, benefits, and discussion of treatment choices. No major barriers to understanding were identified. The patient expressed understanding and agreement with the above treatment plan. The patient was made aware they should contact our office by phone for worsening of their current condition, the appearance of new symptoms, or with any questions or concerns. Compliance is encouraged with any medications and follow up testing that is ordered. It is a privilege to be allowed the opportunity to participate in? your urological care.? Again, if you have any questions or concerns If you have any questions or concerns please do not hesitate to contact me. The office is [phone]. This note is constructed using voice recognition software. While every effort has been made to ensure accuracy chief librarian branch errors may have been included. Yours sincerely, WYATT Franco Coding Level of Care Code Est Pt Level 3 (41623) Diagnoses Urinary hesitancy due to benign prostatic hyperplasia N40.1; R39.11 Bladder outlet obstruction N32.0 Urge incontinence N39.41 Urinary urgency R39.15 Bladder wall thickening N32.89 CPT Codes Post Residual Void - PVR CPT Code: 70541-Dyjl Void Residual by ultrasound ([id number])
== END 2024-06-02 12:08 | disposition home or self-care (01) ==
PROVIDERS: PCP Family Medicine; Visit Provider Nurse Practitioner Family
DX: N40.1 Benign prostatic hyperplasia with lower urinary tract symptoms (principal); R39.11 Hesitancy of micturition; N32.0 Bladder-neck obstruction; N39.41 Urge incontinence; R39.15 Urgency of urination; N32.89 Other specified disorders of bladder; Z13.9 Encounter for screening, unspecified
CPT/HCPCS: 99213

== ENCOUNTER → 2024-06-02 11:09 | Outpatient (BNVA) | payer MEDICARE, MEDICAID, SELFPAY | PROVIDERS: PCP Family Medicine; Visit Provider Nurse Practitioner Family | DX: N40.1 Benign prostatic hyperplasia with lower urinary tract symptoms (principal); R39.11 Hesitancy of micturition; R39.15 Urgency of urination; N32.0 Bladder-neck obstruction; N39.41 Urge incontinence; N32.89 Other specified disorders of bladder | CPT/HCPCS: 51798; 81003; 99212 ==

== ENCOUNTER 2024-07-14 19:31 | Emergency (ER) | payer MEDICARE, MEDICAID, SELFPAY ==
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
[2024-07-14 19:49] VITALS: BP 127/64; PULSE 86; RESP 18; TEMP 36.6; O2SAT 97; BMI 42.5
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
[2024-07-14 22:29] VITALS: BP 127/64; PULSE 86; RESP 18; TEMP 36.6; O2SAT 97
== END 2024-07-14 22:30 | disposition home or self-care (01) ==
PROVIDERS: Emergency Provider Emergency Medicine; PCP Family Medicine
DX: S09.90XA Unspecified injury of head, initial encounter (principal); S89.92XA Unspecified injury of left lower leg, initial encounter; R51.9 Headache, unspecified; M54.2 Cervicalgia; Y04.2XXA Assault by strike against or bumped into by another person, initial encounter; Y93.89 Activity, other specified; Y92.89 Other specified places as the place of occurrence of the external cause; Y99.8 Other external cause status; Z79.899 Other long term (current) drug therapy
CPT/HCPCS: 70450; 70486; 72125; 99282; 99284

== ENCOUNTER 2024-09-22 14:04 | Emergency (ER) | payer MEDICARE, MEDICAID, SELFPAY ==
--- NOTE | ~2024-09-22 | CT_ITS ---
EXAMINATION: CT HEAD WITHOUT CONTRAST CT CERVICAL SPINE WITHOUT CONTRAST CLINICAL INFORMATION: Fall. COMPARISON: CT head and cervical spine from 07/14/2024. TECHNIQUE: Contiguous axial imaging was performed from the skull base to vertex without intravenous administration of contrast. Contiguous axial imaging was performed from the upper chest through the skull base without intravenous administration of contrast. Coronal and sagittal reformats were obtained at the acquisition workstation. This CT examination was performed using dose optimization techniques as appropriate, variously including the following: *Automated exposure control. *Adjustment of mA and/or kV according to patient size (this includes techniques or standardized protocols for targeted exams where dose is matched to indication/reason for exam; i.e. extremities or head). *Use of iterative reconstruction technique. DLP: 1456 mGy-cm FINDINGS: Head: There is no evidence of acute intracranial hemorrhage or edematous territorial infarction. Anaya-white matter differentiation is preserved. There is no abnormal attenuation within the brain parenchyma. The ventricles are normal in morphology and size. No evidence for obstructive hydrocephalus. No abnormal mass effect or midline shift. No extra-axial fluid collections. No acute soft tissue or osseous abnormalities. Mild mucosal thickening of the paranasal sinuses. The mastoid air cells and middle ear cavities are clear. Cervical Spine: The atlantooccipital and atlantoaxial articulations remain well aligned. Minimal right convex curvature of the cervical spine. Straightening of the normal cervical lordosis. Otherwise, there is anatomic alignment of the vertebral bodies and posterior elements. No evidence of acute fracture or subluxation. The vertebral body heights are maintained. Advanced degenerative disc disease from C2-T3 with disc-osteophyte complex formation. There appears to be at least moderate spinal canal stenosis from C3-C6. Facet and uncovertebral joint arthropathy leads to osseous encroachment on the neural foramina from C2-T3. Moderate bridging anterior osteophytosis from C2-T2. There is no prevertebral soft tissue swelling. The thyroid gland and remaining cervical soft tissues are within normal limits. The lung apices demonstrate no abnormalities. CT/CT cervical spine wo IV con IMPRESSION: 1. No evidence of acute intracranial hemorrhage or edematous territorial infarction. 2. No evidence of acute fracture or traumatic subluxation of the cervical spine. 3. Advanced multilevel degenerative spondyloarthropathy of the cervical spine. There appears to be at least moderate spinal canal stenosis from C3-C6. Electronically signed by: Rylan Badillo DO 09/22/2024 06:51 PM EST RP
[2024-09-22 14:19] VITALS: BP 152/88; PULSE 67; O2SAT 98
[2024-09-22 14:21] VITALS: BP 151/75; PULSE 62; RESP 20; TEMP 36.6; O2SAT 100; BMI 40.7
[2024-09-22 14:29] VITALS: BP 151/75; PULSE 62; RESP 20; TEMP 36.6; O2SAT 100
--- OUTSIDE RECORDS SUMMARY | 2024-09-22 14:40 | XMS_ITS | Continuity of Care Document ---
Author Organization [facility] lt Address [address] [place] [id number]- Care Team Providers Care Product Development Chemist Name Role Phone Leonora DE LA CRUZ, Kolby Lafleur Primary Care Physician [phone] Encounter [facility] Date(s): 07/27/24 - 08/26/24 [facility] [address] [place] [address]- Encounter Type: Triage Allergies, Adverse Reactions, Alerts No Known Allergies Immunizations Given and Recorded Vaccine Date Status Refusal Reason influenza virus vaccine, inactivated 06/25/24 Jeff rded influenza virus vaccine, inactivated 09/08/20 Give n influenza virus vaccine, inactivated 07/03/19 Give n influenza virus vaccine, inactivated 1 07/18/18 Gi jian influenza virus vaccine, inactivated 2 07/26/17 Gi jian influenza virus vaccine, inactivated 07/17/17 Jeff rded SARS-CoV-2 (COVID-19) mRNA BNT-162b2 vac 12/07/20 Recorded SARS-CoV-2 (COVID-19) mRNA BNT-162b2 vac 11/16/20 Recorded pneumococcal 13-valent vaccine 07/03/19 Given tetanus/diphtheria/pertussis, acel(Tdap) 3 09/18/17 Given pneumococcal 23-valent vaccine 4 09/18/17 Given 1Result Comment: [07/18/2018] [facility] [id number] 2Result Comment: [07/26/2017] [facility] [id number] 3Result Comment: [09/18/2017] [facility] [id number] ADMINSITERED TO PT S/P ABRASION TO LEFT HAND PER DR CENTENO 4Result Comment: [09/18/2017] [facility] [id number] Medications azelastine 0.05% ophthalmic solution 1 drops, Eyes, Both, 2 times a day, PRN for allergy symptoms, # 6 mL, 6 Refills, Maintenance, 07/10/24 10:54:00 AM EDT, Partial fill upon patient request if the prescription is for a schedule II opioid drug. Start Date: 07/10/24 Status: Ordered Quantity: 6.0 Unit: mL Repeat number: 1 azithromycin 250 mg oral tablet See Instructions, Take 2 tablets on day 1 and 1 tablet daily for next 4 days, # 6 tablet, 0 Refills, Maintenance, 10/15/23 2:44:00 PM EST, Tablet, [facility], Partial fill upon patient request if the prescription is for a schedule II opioid drug., 167.64, cm, 03/29/23 13:08:00 EDT, Height Start Date: 10/15/23 Status: Ordered Quantity: 6.0 Unit: tablet Repeat number: 1 Indication: Acute bronchitis, unspecified Benadryl 25 mg oral tablet 25 mg, 1, tablet, By Mouth, Every 4 hours, PRN, 0 Refills, Maintenance Start Date: 03/29/23 Status: Ordered Repeat number: 1 benazepril 40 mg oral tablet 1 tablet, By Mouth, Daily in AM, # 28 tablet, 2 Refills, Maintenance, 07/22/24 10:45:00 AM EDT, [facility], 167.64, cm, 07/10/24 11:06:00 EDT, Height Start Date: 07/22/24 Status: Ordered Quantity: 28.0 Unit: tablet Repeat number: 1 FLUoxetine 20 mg oral tablet 1.5 tablet = 30 mg, By Mouth, Daily, # 45 tablet, 0 Refills, Maintenance, 03/29/23 1:33:00 PM EDT, Tablet, Partial fill upon patient request if the prescription is for a schedule II opioid drug. Start Date: 03/29/23 Status: Ordered Quantity: 45.0 Unit: tablet Repeat number: 1 Gemtesa 75 mg oral tablet 1 tablet = 75 mg, By Mouth, Daily, # 30 tablet, 0 Refills, Maintenance, 07/10/24 10:54:00 AM EDT, Tablet, Partial fill upon patient request if the prescription is for a schedule II opioid drug. Start Date: 07/10/24 Status: Ordered Quantity: 30.0 Unit: tablet Repeat number: 1 GOLD MERCADO POWDER LARGE BOTTLE GOLD MERCADO POWDER LARGE BOTTLE, See Instructions, # 1 each, Refills 11, Tot. Refills 11, Maintenance, APPLY SMALL AMOUNT TWICE DAILY TO GROIN AREA,, 10/04/23 2:02:00 PM EST, Supply, 167.64, cm, 03/29/23 13:08:00 EDT, Height Start Date: 10/04/23 Status: Ordered Quantity: 1.0 Unit: each Repeat number: 12 levothyroxine 125 mcg (0.125 mg) oral tablet 1 tablet, By Mouth, Daily in AM, # 28 tablet, 11 Refills, Maintenance, 12/18/23 10:47:00 AM EDT, [facility], 167.64, cm, 10/15/23 18:21:00 EST, Height Start Date: 12/18/23 Status: Ordered Quantity: 28.0 Unit: tablet Repeat number: 1 Prodigy Lancets Prodigy Lancets, See Instructions, # 150 each, Refills 2, Tot. Refills 2, Maintenance, Check blood sugars levels once a day. DM2 (E11.9), 10/16/23 10:20:00 AM EST, Supply, 167.64, cm, 10/15/23 18:21:00 EST, Height Start Date: 10/16/23 Status: Ordered Quantity: 150.0 Unit: each Repeat number: 3 Indication: Type 2 diabetes mellitus without complications Prodigy Test Strips Prodigy Test Strips, See Instructions, # 150 each, Refills 2, Tot. Refills 2, Maintenance, Check blood sugars levels once a day. DM2 (E11.9), 10/16/23 10:20:00 AM EST, Supply, 167.64, cm, 10/15/23 18:21:00 EST, Height Start Date: 10/16/23 Status: Ordered Quantity: 150.0 Unit: each Repeat number: 3 Indication: Type 2 diabetes mellitus without complications Prodigy twist top 28g lancets Prodigy twist top 28g lancets, See Instructions, # 100 each, Refills 11, Tot. Refills 11, Maintenance, Test BS as directed Dx: T2DM, 08/27/24 3:58:00 AM EST, Supply, 167.64, cm, 07/10/24 11:06:00 EDT, Height Start Date: 08/27/24 Status: Ordered Quantity: 100.0 Unit: each Repeat number: 12 Robitussin Peak Cold Multi-Sympton Cold oral liquid 2.5 mL, By Mouth, Every 4 hours, PRN NEEDED FOR COUGH AND CONGESTION, # 237 mL, 0 Refills, Maintenance, 10/14/23 4:43:00 PM MARQUITA, [facility], 0, TAKE 2.5 ML BY MOUTH EVERY 4 HOURS NEEDED FOR COUGH AND CONGESTION., 167.64, cm, 03/29/23 13:08:00 EDT, Height Start Date: 10/14/23 Status: Ordered Quantity: 237.0 Unit: mL Repeat number: 1 Topamax 25 mg oral tablet 1 tablet = 25 mg, By Mouth, Daily, 0 Refills, Maintenance, 06/06/18 11:23:00 AM EDT Start Date: 06/06/18 Status: Ordered Repeat number: 1 Valtrex 500 mg oral tablet See Instructions, Twice daily PRN, given 12 hours apart. One day only. PO. PRN as needed. Reason: Cold Sore outbreak., # 2 tablet, Refills 11, Tot. Refills 11, Maintenance, 06/13/23 5:49:00 AM EDT, Instructions Replace Required Details, Route to Pharmacy Electronically, [facility], 167.64, cm, 03/29/23 13:08:00 EDT, Height Start Date: 06/13/23 Status: Ordered Quantity: 2.0 Unit: tablet Repeat number: 12 Problem List Condition Confirmation Course Effective Dates Status H ealth Status Informant Accidental fall Confirmed Active Acquired hypothyroidism Confirmed Active Acute bronchitis Confirmed Active Asthma Confirmed Active Ataxia Confirmed Active ADD (attention deficit disorder) Confirmed Active Benign essential hypertension Confirmed Active BPH (benign prostatic hyperplasia) Confirmed Active Bilateral lower extremity edema Confirmed Active Overactive bladder Confirmed Active Cerebral palsy Confirmed Active Cough Confirmed Active Lumbar degenerative disc disease Confirmed Active Intellectual disability due to developmental disorder, unspecified Confirmed Active Hypertension Confirmed Active Hypothyroidism Confirmed Active Lumbar radiculitis Confirmed Active Obesity Confirmed Active OCD (obsessive compulsive disorder) Confirmed Active Post laminectomy syndrome Confirmed Active Severe obesity Confirmed Active Spinal stenosis Confirmed Active Type 2 diabetes mellitus Confirmed Active Urge incontinence of urine Confirmed Active Social History Social History Type Response Smoking Status Never smoker entered on: 06/06/18 Sex Sex Representation Male (finding) Patient Care team information Care Team Personnel Name: Kolby Centeno MD Position: [facility] Physician - Primary Care Member Role: PCP Address: [address] [place] [id number] Telecom: Name: Trinidad Mcclellan RN Position: [facility] RN Member Role: Primary Care Nurse Care Team Related Persons Name: VALENTINA FELICIANO Insurance Providers Guarantor name: MALCOLM BLISS Health Plan Information #: 1 Payer: MEDICARE PART B OUTPT Member Number: NA Policy Number: NA Group Number: NA Health Plan Information #: 2 Payer: [place] Member Number: NA Policy Number: NA Group Number: NA
--- OUTSIDE RECORDS SUMMARY | 2024-09-22 14:40 | XMS_ITS | Continuity of Care Document ---
Author Organization [facility] Address [address] [place] [address]- Care Team Providers Care Emergency Planning And Response Manager Name Role Phone Leonora DE LA CRUZ, Kolby Lafleur Primary Care Physician [phone] [id number] Date(s): 08/13/24 - 09/12/24 [facility] Adult [address] [place] [address]- Encounter Type: Triage Allergies, Adverse Reactions, Alerts [...] vaccine 4 09/18/17 Given 1Result Comment: [07/18/2018] [facility] [id number] 2Result Comment: [07/26/2017] [facility] [id number] 3Result Comment: [09/18/2017] [facility] [id number] ADMINSITERED TO PT S/P ABRASION TO LEFT HAND PER DR CENTENO 4Result Comment: [09/18/2017] [facility] [id number] Medications azelastine 0.05% ophthalmic solution 1 drops, [...] Refills, Maintenance, 12/18/23 10:47:00 AM EDT, [facility], 167.64, cm, 10/15/23 18:21:00 EST, Height [...] 11, Tot. Refills 11, Maintenance, Test BS daily, Dx: T2DM E11.9, 09/03/24 5:26:00 AM EST, Supply, 167.64, cm, 07/10/24 11:06:00 EDT, Height Start Date: 09/03/24 Status: Ordered Quantity: 100.0 Unit: each Repeat number: 12 Robitussin Peak Cold Multi-Sympton Cold oral liquid 2.5 mL, By Mouth, Every 4 hours, PRN NEEDED FOR COUGH AND CONGESTION, # 237 mL, 0 Refills, Maintenance, 10/14/23 4:43:00 PM MARQUITA, [facility], 0, TAKE 2.5 ML BY MOUTH [...] Team Personnel Name: Kolby Centeno MD Position: [facility] Physician - Primary Care Member Role: PCP Address: [address] [place] [id number] Telecom: Name: Trinidad Mcclellan RN Position: [facility] RN Member Role: Primary Care Nurse Care Team Related Persons Name: VALENTINA FELICIANO Insurance Providers Guarantor name: MALCOLM BLISS Health Plan Information #: 1 Payer: MEDICARE PART B OUTPT Member Number: NA Policy Number: NA Group Number: NA Health Plan Information #: 2 Payer: [place] Member Number: NA Policy Number: NA Group Number: NA
[2024-09-22 17:30] VITALS: BP 180/87; PULSE 61; RESP 16; TEMP 36.1; O2SAT 98
--- NOTE | 2024-09-22 17:59 | ED_ITS ---
HPI - General Adult General Chief complaint: Fall Stated complaint: FALL,HIT HEAD,-LOC,-THINNER,FROM ADULT DAY CARE Time Seen by Provider: 09/22/24 16:29 Source: patient Mode of arrival: ambulatory Limitations: no limitations History of Present Illness ED Provider: Kushal OBRIEN- HPI narrative: 58 yold male with pmh of urge incontience, BPH, and developmental delay presents to the ED for evaluation of head trauma. Patient slipped and fell in the bathroom and hit his head in the sick. Patient presently denes any complaints. Patient and group staff denies any loss of conscisouness. Patient states no other complaints. Related Data Home Medications ?Medication ?Instructions ?Recorded ?Confirmed blood sugar diagnostic #10 ea 04/13/21 01/30/24 benazepril 40 mg tablet 40 mg PO DAILY 06/28/22 01/30/24 lancets 28 gauge (Prodigy Twist #100 ea 06/29/22 01/30/24 Top Lancet) levothyroxine 125 mcg tablet 125 mcg PO DAILY 06/29/22 01/30/24 nystatin 100,000 unit/gram topical topical 06/29/22 01/30/24 powder (Nystop) topiramate 25 mg tablet 25 mg PO BID 06/29/22 01/30/24 fluoxetine 10 mg capsule 30 mg PO 01/29/24 01/30/24 Previous Rx's ?Medication ?Instructions ?Recorded vibegron 75 mg tablet (Gemtesa) 75 mg PO DAILY 90 days #90 tabs 06/02/24 Allergies Allergy/AdvReac Type Severity Reaction Status Date / Time No Known Allergies Allergy Verified 09/22/24 14:28 [No Known Allergies*] Review of Systems Review of Systems: head injury Yes all other systems are reviewed and are negative [facility] Past Medical History Medical History Hypertension Diabetes mellitus type 1 Social History Social History Alcohol intake: never Patient Tobacco Use Status: Never used Tobacco Smoked in Last 30 Days: No Use of substances other than those prescribed or required for medical reasons: No Advance Directives: No Advance Directives Information Provided: Yes Do you have a plan to hurt others: No Plan Physical Exam ED Vital Signs: Vital Signs - 24 hr 09/22/24 14:21 09/22/24 14:29 09/22/24 17:30 Temperature 97.9 F 97.9 F 97.0 F Pulse Rate 62 62 61 Respiratory Rate 20 20 16 Blood Pressure 151/75 H 151/75 H 180/87 H Pulse Oximetry 100 100 98 Oxygen Delivery Method Room Air Room Air Room Air BMI result Body Mass Index 40.7 Const General: cooperative, healthy appearing, comfortable, no acute distress, well d eveloped, alert, awake and Physically active Orientation/consciousness: patient oriented x3 [facility] Head: Yes normal to inspection, Yes No palpable skull fracture present, Yes normocephalic and Yes atraumatic Ears: hearing grossly normal bilaterally, external ears normal, TM's normal bilaterally, TM normal on the right, TM normal on the left, EAC's normal and no periauricular adenopathy Throat: Yes posterior oropharynx normal, Yes tonsils normal and Yes uvula midline Eyes General: appearance normal, both eyes and all related structures Neck Neck: Yes normal visual inspection, Yes full ROM, Yes no lymphadenopathy, Yes no meningeal signs, Yes trachea midline, Yes supple, No anterior neck swelling and No tender Chest Chest palpation & inspection: normal inspection of the chest and normal palpation of entire chest wall Resp Effort & Inspection: normal respiratory effort and able to speak in complete sentences Auscultation: clear to auscultation bilaterally Cardio Jugular venous distension: no JVD Heart sounds: S1 normal heart sound present and S2 normal heart sound present GI Inspection: Yes normal to inspection Palpation (GI): Soft to palpation, not firm, nontender, no guarding and not rigid General: Yes no CVA tenderness Back/Spine/Pelvis Back: no CVA tenderness and No back tenderness Skin General skin exam: no rashes or lesions noted, elasticity normal and turgor normal Neuro General: patient oriented x3, gait normal, tone normal, moves all extremities, Normal light touch and pain sensation, no meningeal signs, no focal motor deficits, CN's II-XI intact bilaterally and normal sensation to monofilament Extrem General: Yes normal to inspection, Yes full ROM and Yes capillary refill normal Psych Appearance: grossly normal, well kempt and not disheveled Medical Decision Making Medical Decision Making MDM Narrative: 58-year-old male with slight developmental delay presents to ED for evaluation of head trauma. Patient fell out halfway hit his head on the sick. Patient denies any chest pain dizziness abdominal pain before falling. Patient denies any loss of consciousness. Cervical spine head CT scan ordered. 20:05pm: head CT scan and cervical spine scan was normal. Whole body is evaluated and negative for life threatening etiology. Patient and halfway aide explained worrisome signs and informed to return to the ED immediatley. Not suspecting IN, stroke, or any other life threatnening. etiology. Discharge Plan Discharge Clinical Impression: Head injury Patient Disposition: Home, Self-Care Instructions: Head Injury (ED) Additional Instructions: Head CT scan and cervical spine CT scan came back normal and negative for any brain bleed or fracture. Recommend follow-up with primary care provider. Return to the ED immediately for any nausea, vomiting, headache, dizziness, a ltered mental status, chest pain, shortness of breath, abdominal pain, or any other concerning symptoms. CT/CT cervical spine wo IV con IMPRESSION: 1. No evidence of acute intracranial hemorrhage or edematous territorial infarction. 2. No evidence of acute fracture or traumatic subluxation of the cervical spine. 3. Advanced multilevel degenerative spondyloarthropathy of the cervical spine. There appears to be at least moderate spinal canal stenosis from C3-C6. Electronically signed by: Rylan Badillo DO 09/22/2024 06:51 PM [facility] Prescriptions: No Action (DME) FreeStyle Lite Strips Strip See Rx Instructions Not Applicable DAILY Qty: 10 Rx Instructions: As directed benazepril 40 mg tablet 40 mg PO DAILY topiramate 25 mg tablet 25 mg PO BID levothyroxine 125 mcg tablet 125 mcg PO DAILY nystatin [Nystop] 100,000 unit/gram powder topical (DME) lancets [Prodigy Twist Top Lancet] 28 gauge misc See Rx Instructions .ROUTE .MEDSUPPLY Qty: 100 Rx Instructions: As directed fluoxetine 10 mg capsule 30 mg PO Gemtesa 75 mg tablet 75 mg PO DAILY 90 Days Qty: 90 2RF Interventions: ED Discharge Assessment Last Done: 09/22/24 20:05 Discharge Date/Time: 09/22/24 20:06 Print Language: Kinyarwanda
[2024-09-22 19:32] VITALS: BP 158/65; PULSE 65; RESP 16; TEMP 37.4; O2SAT 97
[2024-09-22 20:05] VITALS: BP 158/65; PULSE 65; RESP 16; TEMP 37.4; O2SAT 97
== END 2024-09-22 20:06 | disposition home or self-care (01) ==
PROVIDERS: Emergency Provider Emergency Medicine; PCP Family Medicine
DX: S09.90XA Unspecified injury of head, initial encounter (principal); M54.2 Cervicalgia; R51.9 Headache, unspecified; W01.10XA Fall on same level from slipping, tripping and stumbling with subsequent striking against unspecified object, initial encounter; Y93.9 Activity, unspecified; Y92.002 Bathroom of unspecified non-institutional (private) residence as the place of occurrence of the external cause; Y99.8 Other external cause status; Z79.899 Other long term (current) drug therapy
CPT/HCPCS: 70450; 72125; 99284

== ENCOUNTER 2024-10-19 19:47 | Emergency (ER) | payer MEDICARE, MEDICAID, SELFPAY ==
--- NOTE | ~2024-10-19 | CT_ITS ---
CLINICAL HISTORY: ? trauma CT cervical spine without contrast Comparison: CT/SR - CT CERVICAL SPINE WO IV CON - 09/22/24 17:35 EST Findings: Straightening of the cervical lordosis. Advanced multilevel spondylosis with osteophytosis, uncovertebral hypertrophy, facet arthropathy and degenerative disc disease. Diffuse spinal canal narrowing, high-grade throughout for example moderate to severe at C4-C5 with severe bilateral foraminal stenoses. No acute fractures or dislocations. Soft tissues of the neck are normal. No consolidation or effusion at the lung apices. IMPRESSION: No acute findings. Additional findings as described. This document has been electronically signed by: Cj Nova MD on 10/19/2024 22:29:02
--- NOTE | ~2024-10-19 | CT_ITS ---
CLINICAL HISTORY: ? trauma CT head without contrast Comparison: CT/AL/SR - CT HEAD/BRAIN WO IV CON - 09/22/24 17:35 EST Findings: Scattered subcortical and periventricular hypoattenuation, likely in keeping with chronic small vessel ischemic disease. Parenchymal volume loss with compensatory prominence of the ventricles and CSF spaces. No acute territorial infarction, intracranial hemorrhage, midline shift or hydrocephalus. The visualized paranasal sinuses and mastoid air cells are normal. The orbits are unremarkable. No skull fracture. IMPRESSION: 1. No acute intracranial findings. 2. Additional findings as described. This document has been electronically signed by: Cj Nova MD on 10/19/2024 22:26:25
[2024-10-19 20:02] VITALS: BP 160/90; PULSE 76; O2SAT 99
[2024-10-19 20:15] VITALS: BP 197/77; PULSE 72; RESP 16; TEMP 36.6; O2SAT 99; BMI 39.2
--- NOTE | 2024-10-19 20:20 | ED.FALL ---
HPI - Fall General Chief Complaint: Fall Stated Complaint: FALL FROM [facility], NO PT COMPLAINTS PER EMS Time Seen by Provider: 10/19/24 20:18 Source: patient Limitations: no limitations History of Present Illness ED Provider: Luna Torres PA-C HPI Narrative: 58-year-old male [facility]. Patient was reaching over while seated in a chair to bulk picker something off the floor, and subsequently fell. Patient has no physical concerns or complaints at this time. Patient is at his baseline mentation per [facility]iary staff. Patient does not use a blood thinner. Related Data Home Medications ?Medication ?Instructions ?Recorded ?Confirmed blood sugar diagnostic #10 ea 04/13/21 01/30/24 benazepril 40 mg tablet 40 mg PO DAILY 06/28/22 01/30/24 lancets 28 gauge (Prodigy Twist #100 ea 06/29/22 01/30/24 Top Lancet) levothyroxine 125 mcg tablet 125 mcg PO DAILY 06/29/22 01/30/24 nystatin 100,000 unit/gram topical topical 06/29/22 01/30/24 powder (Nystop) topiramate 25 mg tablet 25 mg PO BID 06/29/22 01/30/24 fluoxetine 10 mg capsule 30 mg PO 01/29/24 01/30/24 Previous Rx's ?Medication ?Instructions ?Recorded vibegron 75 mg tablet (Gemtesa) 75 mg PO DAILY 90 days #90 tabs 06/02/24 Allergies Allergy/AdvReac Type Severity Reaction Status Date / Time No Known Allergies Allergy Verified 10/19/24 20:16 [No Known Allergies*] Review of Systems Review of Systems: Yes all other systems are reviewed and are negative Constitutional: Constitutional: Denies fatigue, Denies fever(s) and Denies headache(s) ENT: Denies dizziness, Denies headache(s) and Denies neck pain Cardiovascular: Cardiovascular: Denies chest pain and Denies dyspnea Respiratory: Respiratory: Denies dyspnea Gastrointestinal: Gastrointestinal: Denies abdominal pain Musculoskeletal: Musculoskeletal: Denies back pain, Denies arthralgias, Denies joint swelling and Denies neck pain Neurologic: Denies dizziness and Denies headache(s) Endocrine: Endocrine: Denies fatigue PMF Past Medical History Attestation statement: The following information was validated with the patient. Medical History Hypertension Diabetes mellitus type 1 Social History Social History Alcohol intake: never Patient Tobacco Use Status: Never used Tobacco Advance Directives: No Advance Directives Information Provided: No Physical Exam Vital Signs: Vital Signs: Last Vital Signs Temp 97.8 F 10/19/24 20:15 Pulse 72 10/19/24 20:15 Resp 16 10/19/24 20:15 BP 168/76 H 10/19/24 20:50 Pulse Ox 99 10/19/24 20:15 O2 Del Method Room Air 10/19/24 20:15 BMI result Body Mass Index 39.2 Const: Other: Alert well-appearing, no sign of head trauma on exam Orientation/consciousness: patient oriented x3 Neck: Other: Soft supple full range of motion Resp: Effort & Inspection: normal respiratory effort Cardio: Other: Normal peripheral perfusion Skin: Other: Warm dry no rash Neuro: General: patient oriented x3, no focal motor deficits and CN's II-XI intact bilaterally Extrem: Other: Moves all extremities independently with ease no pain elicited, patient ambulating with a walker at his baseline, again, he uses a walker at baseline Psych: Other: Calm cooperative pleasant Medical Decision Making Medical Decision Making MDM Narrative: 58-year-old male [facility]. Patient was reaching over while seated in a chair to bulk picker something off the floor, and subsequently fell. Patient has no physical concerns or complaints at this time. Patient is at his baseline mentation per [facility]iary staff. Patient does not use a blood thinner. No relevant chronic issues History: Per [facility] staff I have considered the following differential diagnoses: Fracture, dislocation, intracranial hemorrhage, cervical spine injury, contusion Plan: The patient has sustained a low mechanism fall, there was no head strike he is not on a blood thinner. The patient is at his baseline mentation, there was no sign of head trauma on exam, furthermore he is at his baseline physical capacity while walking with a walker. No indication for x-rays or CTs. We will discharge now. Discharge Plan Discharge Clinical Impression: Accidental fall from chair Patient Disposition: Home, Self-Care Instructions: Fall Prevention for Older Adults (ED) Additional Instructions: The patient is at his baseline mentation, there are no signs of trauma on exam. The patient was ambulated with a walker, he is at his baseline physical capacity. He can follow up with his primary care provider as needed. Prescriptions: No Action (DME) FreeStyle Lite Strips Strip See Rx Instructions Not Applicable DAILY Qty: 10 Rx Instructions: As directed benazepril 40 mg tablet 40 mg PO DAILY topiramate 25 mg tablet 25 mg PO BID levothyroxine 125 mcg tablet 125 mcg PO DAILY nystatin [Nystop] 100,000 unit/gram powder topical (DME) lancets [Prodigy Twist Top Lancet] 28 gauge misc See Rx Instructions .ROUTE .MEDSUPPLY Qty: 100 Rx Instructions: As directed fluoxetine 10 mg capsule 30 mg PO Gemtesa 75 mg tablet 75 mg PO DAILY 90 Days Qty: 90 2RF Print Language: Macedonian
[2024-10-19 20:50] VITALS: BP 168/76
--- NOTE | 2024-10-19 21:30 | PC.NURSE ---
Attempted to discharge the patient per provider orders and evaluation. intermediate staff manager appointment (Zandra) is requesting that imaging be completed stating we have sent other clients there before and there have been findings afterwards because you guys didn't do imaging the first time that they were sent there. It was explained by MICAH Rader that his workup is negative, the patient denies complaints, denies head strike/injury. PA agreed to order CT of head to rule out injury despite no changes from baseline per patient or long-term staff that's at the bedside. Awaiting CT to be obtained, reviewed, and plan for discharge pending negative radiology scans. [employer]p [employer] (Latesha Stack) aware.
[2024-10-19 23:00] VITALS: BP 160/70; PULSE 82; RESP 18; TEMP 36.9; O2SAT 97
== END 2024-10-19 23:00 | disposition home or self-care (01) ==
PROVIDERS: Emergency Provider Emergency Medicine; PCP Family Medicine
DX: Z71.1 Person with feared health complaint in whom no diagnosis is made (principal); Z91.81 History of falling
CPT/HCPCS: 70450; 72125; 99282; 99284

== ENCOUNTER → 2024-10-19 21:30 | Outpatient (BNV) | payer MEDICARE, MEDICAID, SELFPAY | PROVIDERS: Emergency Provider Emergency Medicine; PCP Family Medicine; Visit Provider Radiology Diagnostic Radiology | DX: T14.90XA Injury, unspecified, initial encounter (principal) | CPT/HCPCS: 70450; 72125 ==

== ENCOUNTER 2025-01-18 08:18 | Emergency (ER) | payer MEDICARE, SELFPAY ==
--- NOTE | ~2025-01-18 | CT_ITS ---
EXAMINATION: CT HEAD WITHOUT IV CONTRAST HISTORY: head injury, pain. TECHNIQUE: Unenhanced helical CT of the head was performed per standard departmental protocol. Coronal and sagittal reformats of the head were also evaluated. One or more of the following techniques was used for dose reduction: Automated exposure control, adjustment of the mA and/or kV according to patient size, use of iterative reconstruction technique. DLP: 798 mGy-cm COMPARISON: Comparison is made with the prior examination dated 10/19/2024. FINDINGS: BRAIN: The brain parenchyma is unremarkable. There is normal medina/white differentiation. The ventricular system is normal in size and configuration. There is no mass effect or midline shift. No intra- or extra-axial fluid collections are identified. SINUSES: There is mild mucosal thickening in the bilateral maxillary sinuses. The mastoid air cells and middle ear cavities are well pneumatized. ORBITS: The visualized orbits are unremarkable. BONES/SOFT TISSUES: The extracranial soft tissues are unremarkable. The calvarium is intact. No suspicious lytic or sclerotic lesions. CT/CT head/brain wo IV con IMPRESSION: No acute intracranial abnormality. Electronically signed by: Alan Gavin MD 01/18/2025 09:47 AM EDT
--- NOTE | ~2025-01-18 | CT_ITS ---
EXAMINATION: CT CERVICAL SPINE WITHOUT IV CONTRAST HISTORY: head injury, pain. TECHNIQUE: Helical CT of the cervical spine was performed per standard departmental protocol. Coronal and sagittal reformatted images were also evaluated. One or more of the following techniques was used for dose reduction: Automated exposure control, adjustment of the mA and/or kV according to patient size, use of iterative reconstruction technique. DLP: 834 mGy-cm COMPARISON: Comparison is made with the prior examination dated 10/19/2024. FINDINGS: CERVICAL SPINE: The vertebral bodies maintain normal height without evidence of fracture or subluxation. There is straightening of the normal cervical lordosis. There is diffuse severe degenerative disc disease with disc space narrowing and osteophyte formation. There is diffuse facet osteoarthritis and uncovertebral joint hypertrophy causing multilevel bilateral neural foraminal stenosis. Evaluation for disc pathology is limited by lack of intrathecal contrast material, however. BRAIN: The visualized portion of the brain is unremarkable. SINUSES: The visualized paranasal sinuses, mastoid air cells and middle ear cavities are unremarkable. LUNG APICES: The visualized lung apices are clear. SOFT TISSUES: The visualized paraspinal soft tissues are unremarkable. CT/CT cervical spine wo IV con IMPRESSION: No evidence of fracture or subluxation of the cervical spine. Degenerative changes as described. Electronically signed by: Alan Gavin MD 01/18/2025 09:51 AM EDT
[2025-01-18 08:33] VITALS: BP 145/76; PULSE 67; O2SAT 98
[2025-01-18 08:35] VITALS: BP 135/71; PULSE 73; RESP 16; TEMP 36.8; O2SAT 98; BMI 42.8
--- NOTE | 2025-01-18 08:52 | ED_ITS ---
HPI - General Adult General Chief complaint: Fall Stated complaint: from [facility], fall with headstrike, hx special needs Time Seen by Provider: 01/18/25 08:51 Source: patient, EMS and other (half-way staff) Mode of arrival: EMS Limitations: no limitations History of Present Illness ED Provider: Mila Ferrara PA-C HPI narrative: 59 year old male with PMHx asthma, HTN, T2DM, hypothyroidism, spastic cerebral palsy, arthritis/osteoarthritis, BPH, mild developmental delay, OCD, bipolar, and ADD presenting to the ED following a witnessed fall with headstrike at his half-way. History obtained from both patient and caregiver who witnessed the fall. Reports patient stood up from shower chair, pivoted, felt left leg pop/cramp , lost balance, and fell backward to floor, hitting posterior head on shower wall. Patient able to ambulate since fall per baseline and reports no pain/other complaints/injuries at this time. Denies LOC, blood thinners, laceration/bleeding, dizziness, lightheadedness, CP, SOB, abd pain, N/V/D, urinary symptoms, numbness/tingling, other recent trauma/fall/illness. Onset (ago): hour(s) Location: head Related Data Home Medications ?Medication ?Instructions ?Recorded ?Confirmed blood sugar diagnostic #10 ea 04/13/21 01/30/24 benazepril 40 mg tablet 40 mg PO DAILY 06/28/22 01/30/24 lancets 28 gauge (Prodigy Twist #100 ea 06/29/22 01/30/24 Top Lancet) levothyroxine 125 mcg tablet 125 mcg PO DAILY 06/29/22 01/30/24 nystatin 100,000 unit/gram topical topical 06/29/22 01/30/24 powder (Nystop) topiramate 25 mg tablet 25 mg PO BID 06/29/22 01/30/24 fluoxetine 10 mg capsule 30 mg PO 01/29/24 01/30/24 Previous Rx's ?Medication ?Instructions ?Recorded vibegron 75 mg tablet (Gemtesa) 75 mg PO DAILY 90 days #90 tabs 06/02/24 Allergies Allergy/AdvReac Type Severity Reaction Status Date / Time No Known Allergies Allergy Verified 01/18/25 08:38 [No Known Allergies*] Review of Systems Constitutional: Constitutional: Reports no additional constitutional complaints, Denies chills, Denies fever(s), Reports headache(s) and Denies night sweats Eyes: Eyes: Reports no additional eye complaints, Denies blurry vision, Denies change in vision, Denies diplopia, Denies eye discharge, Denies loss of vision and Denies eye pain ENT: Denies dizziness and Reports headache(s) Cardiovascular: Cardiovascular: Reports no additional cardiovascular complaints, Denies chest pain, Denies lightheadedness, Denies Loss of Consciousness and Denies dyspnea Respiratory: Respiratory: Reports no additional respiratory complaints and Denies dyspnea Gastrointestinal: Gastrointestinal: Reports no additional gastrointestinal complaints, Denies abdominal pain, Denies melena, Denies hematochezia, Denies change in bowel habits and Denies change in stool character Genitourinary: Genitourinary: Reports no additional male genitourinary complaints, Denies hematuria, Denies oliguria, Denies difficulty urinating, Denies dysuria, Denies urinary frequency, Denies urinary hesitancy, Denies urinary incontinence and Denies urinary urgency Musculoskeletal: Musculoskeletal: Reports no additional musculoskeletal complaints, Denies numbness and Denies tingling Neurologic: Denies dizziness, Reports headache(s), Denies loss of vision, Denies numbness and Denies tingling Psychiatric: Psychiatric: Reports no additional psychiatric complaints Endocrine: Endocrine: Reports no additional endocrine complaints Hematologic/Lymphatic: Hematologic/Lymphatic: Reports no additional hematologic/lymphatic complaints Allergic/Immunologic: Allergic/Immunologic: Reports no additional allergic/immunologic complaints PMFSH Past Medical History Attestation statement: The following information was validated with the patient. (all information validated with the patient's half-way staff) Source: old records reviewed, nursing notes reviewed and other (patient's half-way staff provided additional history and confirmed the history provided by the patient. ) Medical History Hypertension Diabetes mellitus type 1 Social History Social History Alcohol intake: never Patient Tobacco Use Status: Never used Tobacco Physical Exam ED Vital Signs: Vital Signs - 24 hr 01/18/25 08:35 01/18/25 10:23 Temperature 98.3 F 98.3 F Pulse Rate 73 73 Respiratory Rate 16 16 Blood Pressure 135/71 135/71 Pulse Oximetry 98 98 Oxygen Delivery Method Room Air Room Air BMI result Body Mass Index 42.8 Const General: cooperative, no acute distress, alert and awake Nutritional Appearance: well nourished Orientation/consciousness: patient oriented x3 Limitations: no limitations HENMT Other: No ttp over head, cervical spine, neck. Head: Yes normal to inspection, Yes atraumatic, No abrasion, No hematoma and No laceration Ears: hearing grossly normal bilaterally and external ears normal General nose exam: Normal external nose present, no nasal discharge noted and no epistaxis Face and sinus: Yes normal facial exam, No abrasion and No laceration Mouth: Normal oral and palatal mucosa present, no drooling and no muffled voice Throat: Yes posterior oropharynx normal and Yes uvula midline Eyes General: appearance normal, both eyes and all related structures Periorbital: periorbital findings normal Eyelids: Yes eyelids normal Conjunctivae: conjunctivae normal Pupils: Equal, round and reactive pupils present EOM: EOMs intact bilaterally Neck Neck: Yes normal visual inspection, Yes full ROM and Yes no lymphadenopathy Chest Chest palpation & inspection: normal inspection of the chest Resp Effort & Inspection: normal respiratory effort and able to speak in complete sentences GI Inspection: Yes normal to inspection Neuro General: patient oriented x3, moves all extremities and CN's II-XI intact bilaterally Cranial nerves: Yes Equal, round and reactive pupils present Cognition (Neuro): normal cognition Extrem General: Yes normal to inspection, Yes full ROM and Yes capillary refill normal Psych Appearance: grossly normal Mental Status: mental status grossly normal Affect: normal affect Attitude: cooperative Thought process: Normal thought process present Thought content: Normal thought content present Insight: Good insight present (Psych) Medical Decision Making Medical Decision Making MDM Narrative: Patient is a 59 year old assigned male at with a history of asthma, HTN, T2DM, hypothyroidism, spastic cerebral palsy, arthritis/osteoarthritis, BPH, mild developmental delay, OCD, bipolar, and ADD presenting to the emergency department today with a headache after a fall. Patient's physical exam was unremarkable and consistent with his baseline. Patient's CT head and c-spine showed no acute process. I explained my physical exam findings as well as all test results to the patient. I answered all questions asked by the patient. I stressed the importance of the patient taking his medication as directed (either prescribed or as the over the counter packaging recommends). I stressed the importance of the patient following up with his primary care provider. I stressed the importance of the patient returning to the emergency department immediately if his symptoms were to worsen or if he were to develop any dizziness, shortness of breath, difficulty breathing, chest pain, blurry vision, loss of vision, nausea, vomiting, abdominal pain, fever, chills, back pain, or any other complaints. Patient and the patient's half-way staff verbalized agreement and understanding with this treatment plan and discharge. Differential Diagnosis Differential Diagnoses: The differential diagnosis associated with the presentation includes Fall Headache Head strike Concussion Admission/Observation Consideration of admission/observation: Escalation of care including admission/observation considered Patient would have been admitted to the hospital had his] work up had any findings where hospital admission was appropriate and his clinical presentation warranted hospital admission. Independent Interpretation I performed an independent interpretation of an: CT Scan Interpretation: My interpretation is in agreement with the radiologist's impression of these imaging studies. Report Number: [id number]: Total DLP = 808.00 mGy-cm EXAMINATION: CT HEAD WITHOUT IV CONTRAST HISTORY: head injury, pain. TECHNIQUE: Unenhanced helical CT of the head was performed per standard departmental protocol. Coronal and sagittal reformats of the head were also evaluated. One or more of the following techniques was used for dose reduction: Automated exposure control, adjustment of the mA and/or kV according to patient size, use of iterative reconstruction technique. DLP: 798 mGy-cm COMPARISON: Comparison is made with the prior examination dated 10/19/2024. FINDINGS: BRAIN: The brain parenchyma is unremarkable. There is normal medina/white differentiation. The ventricular system is normal in size and configuration. There is no mass effect or midline shift. No intra- or extra-axial fluid collections are identified. SINUSES: There is mild mucosal thickening in the bilateral maxillary sinuses. The mastoid air cells and middle ear cavities are well pneumatized. ORBITS: The visualized orbits are unremarkable. BONES/SOFT TISSUES: The extracranial soft tissues are unremarkable. The calvarium is intact. No suspicious lytic or sclerotic lesions. CT/CT head/brain wo IV con IMPRESSION: No acute intracranial abnormality. Electronically signed by: Alan Gavin MD 01/18/2025 09:47 AM EDT RP Dictated By: Alan Gavin MD Signed By: Electronically signed by Alan Gavin MD 01/18/25 0947 Report Number: [id number]: Total DLP = 833.00 mGy-cm EXAMINATION: CT CERVICAL SPINE WITHOUT IV CONTRAST HISTORY: head injury, pain. TECHNIQUE: Helical CT of the cervical spine was performed per standard departmental protocol. Coronal and sagittal reformatted images were also evaluated. One or more of the following techniques was used for dose reduction: Automated exposure control, adjustment of the mA and/or kV according to patient size, use of itera tive reconstruction technique. DLP: 834 mGy-cm COMPARISON: Comparison is made with the prior examination dated 10/19/2024. FINDINGS: CERVICAL SPINE: The vertebral bodies maintain normal height without evidence of fracture or subluxation. There is straightening of the normal cervical lordosis. There is diffuse severe degenerative disc disease with disc space narrowing and osteophyte formation. There is diffuse facet osteoarthritis and uncovertebral joint hypertrophy causing multilevel bilateral neural foraminal stenosis. Evaluation for disc pathology is limited by lack of intrathecal contrast material, however. BRAIN: The visualized portion of the brain is unremarkable. SINUSES: The visualized paranasal sinuses, mastoid air cells and middle ear cavities are unremarkable. LUNG APICES: The visualized lung apices are clear. SOFT TISSUES: The visualized paraspinal soft tissues are unremarkable. CT/CT cervical spine wo IV con IMPRESSION: No evidence of fracture or subluxation of the cervical spine. Degenerative changes as described. Electronically signed by: Alan Gavin MD 01/18/2025 09:51 AM EDT RP Dictated By: Alan Gavin MD Signed By: Electronically signed by Alan Gavin MD 01/18/25 0951 Radiology Impression Discussion of test interpretation with radiology: I have reviewed the radiologist's reading. Independent Historian Clinical information obtained from an independent historian. History obtained from or confirmed by: EMS (EMS provided additional history and confirmed the history provided by the patient and half-way staff.) and Other (half-way staff provided additional history and confirmed the history provided by the patient and EMS ) Discharge Plan Discharge Clinical Impression: Fall, Headache Patient Disposition: Home, Self-Care Instructions: Acute Headache (DC), Fall Prevention (ED) Additional Instructions: Follow up with your primary care provider. Return to the emergency department immediately if your symptoms worsen or if you develop any numbness, tingling, dizziness, shortness of breath, difficulty breathing, chest pain, blurry vision, loss of vision, nausea, vomiting, abdominal pain, fever, chills, back pain, or any other complaints. Please see the information below about our Patient Portal. If you are not yet enrolled in the [facility] Patient Portal, you will receive an enrollment email invitation following your visit to any [facility] setting. You may also self-enroll in the Patient Portal by visiting our website: [email or web address] The following information is required to access the Patient Portal: - Your [facility] Medical Record Number - Your personal home email address (must match what is in your electronic medical record, Registration staff can assist with this) - Name - Date of Capabilities of the Patient Portal: - Message some providers - View upcoming appointments - Access your health summary, medical history, and visit history - View current conditions and allergies - View procedure and lab results - View your medications, including guidelines, side effects, and precautions - Complete pre-appointment questionnaires requested by your provider - Ready summary reports of your office visits and procedures To access the Patient Portal Mobile [employer], follow these directions: - Search [employer] in the Nathen Store or Google Play Store - Download the Nathen - Search for [facility] - Enter your login/password Prescriptions: No Action (DME) FreeStyle Lite Strips Strip See Rx Instructions Not Applicable DAILY Qty: 10 Rx Instructions: As directed benazepril 40 mg tablet 40 mg PO DAILY topiramate 25 mg tablet 25 mg PO BID levothyroxine 125 mcg tablet 125 mcg PO DAILY nystatin [Nystop] 100,000 unit/gram powder topical (DME) lancets [Prodigy Twist Top Lancet] 28 gauge misc See Rx Instructions .ROUTE .MEDSUPPLY Qty: 100 Rx Instructions: As directed fluoxetine 10 mg capsule 30 mg PO Gemtesa 75 mg tablet 75 mg PO DAILY 90 Days Qty: 90 2RF Referrals: Kolby Lea MD [Primary Care Provider] - Interventions: ED Discharge Assessment Last Done: 01/18/25 10:23 Discharge Date/Time: 01/18/25 10:24 Print Language: Lithuanian
[2025-01-18 10:23] VITALS: BP 135/71; PULSE 73; RESP 16; TEMP 36.8; O2SAT 98
== END 2025-01-18 10:24 | disposition home or self-care (01) ==
PROVIDERS: Emergency Provider Emergency Medicine; PCP Family Medicine
DX: S09.90XA Unspecified injury of head, initial encounter (principal); M54.2 Cervicalgia; R51.9 Headache, unspecified; I10 Essential (primary) hypertension; E11.9 Type 2 diabetes mellitus without complications; W19.XXXA Unspecified fall, initial encounter; Y93.E1 Activity, personal bathing and showering; Y92.048 Other place in boarding-house as the place of occurrence of the external cause; Y99.8 Other external cause status; Z79.899 Other long term (current) drug therapy
CPT/HCPCS: 70450; 72125; 99282; 99284

== ENCOUNTER → 2025-01-18 08:52 | Outpatient (BNV) | payer MEDICARE, SELFPAY | PROVIDERS: Emergency Provider Emergency Medicine; PCP Family Medicine; Visit Provider Radiology Diagnostic Radiology | DX: R52 Pain, unspecified (principal); S09.90XA Unspecified injury of head, initial encounter | CPT/HCPCS: 70450; 72125 ==

== ENCOUNTER → 2025-04-08 13:50 | Outpatient (BNV) | payer MEDICARE, MEDICAID, SELFPAY | PROVIDERS: Emergency Provider Emergency Medicine Emergency Medical Services; PCP Family Medicine; Visit Provider Radiology Diagnostic Radiology | DX: M25.562 Pain in left knee (principal) | CPT/HCPCS: 73564 ==

== ENCOUNTER 2025-04-08 14:10 | Emergency (ER) | payer MEDICARE, MEDICAID, SELFPAY ==
--- OUTSIDE RECORDS SUMMARY | 2025-04-02 23:59 | XMS_ITS | Continuity of Care Document ---
Author Organization [facility] Address [address] [place] [address]- Care Team Providers Care Cryptographer Name Role Phone Leonora DE LA CRUZ, Kolby Lafleur Primary Care Physician [id number] Date[facility]s): 03/03/25 - 04/02/[address] [address]- Attending Physician: Admtr, ArBill Admitting Physician: Admtr, Claudia Referring Physician: Admtr, Ar8 Encounter Type: Triage Allergies, Adverse Reactions, Alerts No Known Allergies Immunizations Given and Recorded Vaccine Date Status Refusal Reason influenza virus vaccine, inactivated 06/25/24 Jeff rded influenza virus vaccine, inactivated 09/08/20 Give n influenza virus vaccine, inactivated 07/03/19 Give n influenza virus vaccine, inactivated 1 07/18/18 Gi jian influenza virus vaccine, inactivated 2 07/26/17 Gi jian influenza virus vaccine, inactivated 10/11/17 Jeff rded SARS-CoV-2 (COVID-19) mRNA BNT-162b2 vac 12/07/20 Recorded SARS-CoV-2 (COVID-19) mRNA BNT-162b2 vac 11/16/20 Recorded pneumococcal 13-valent vaccine 07/03/19 Given tetanus/diphtheria/pertussis, acel(Tdap) 3 09/18/17 Given pneumococcal 23-valent vaccine 4 09/18/17 Given 1Result Comment: [07/18/2018] [facility] [id number] 2Result Comment: [07/26/2017] [facility] [id number] 3Result Comment: [09/18/2017] [facility] [id number] ADMINSITERED TO PT S/P ABRASION TO LEFT HAND PER DR CENTENO 4Result Comment: [09/18/2017] [facility] [id number] Medications amLODIPine 2.5 mg oral tablet 2.5 mg, 1, tablet, By Mouth, Daily, # 30 tablet, Refills 5, Tot. Refills 5, Maintenance, 12/28/24 3:23:00 PM EDT, Route to Pharmacy Electronically, [facility], Partial fill upon patient request if the prescription is for a schedule II opioid drug., 167.64, cm, 12/28/24 15:09:00 EDT, Height Start Date: 12/28/24 Status: Ordered Quantity: 30.0 Unit: tablet Repeat number: 6 azelastine 0.05% ophthalmic solution 1 drops, Eyes, Both, 2 times a day, PRN for allergy symptoms, # 10 mL, 11 Refills, Acute 06/30/25 3:24:00 PM EDT, 12/28/24 3:24:00 PM EDT, Solution, [facility], Partial fill upon patient request if the prescription is for a schedule II opioid drug., 1 drops Eyes, Both 2 times a day,PRN:for allergy symptoms, 167.64, cm, 12/28/24 15:09:00 EDT, Height Start Date: 12/28/24 Stop Date: 06/30/25 Status: Ordered Quantity: 10.0 Unit: mL Repeat number: 12 Benadryl 25 mg oral tablet 25 mg, 1, tablet, By Mouth, Every 4 hours, PRN, 0 Refills, Maintenance Start Date: 03/29/23 Status: Ordered Repeat number: 1 benazepril 40 mg oral tablet 1 tablet, By Mouth, Daily in AM, # 28 tablet, 11 Refills, Maintenance, 09/24/24 8:47:00 AM [facility], 167.64, cm, 07/10/24 11:06:00 EDT, Height Start Date: 09/24/24 Status: Ordered Quantity: 28.0 Unit: tablet Repeat [...] Unit: tablet Repeat number: 1 GOLD MERCADO ORIG STR 0.15% POWD GOLD MERCADO ORIG STR 0.15% POWD, See Instructions, # 283 Gm, 0 Refills, Maintenance, APPLY TOPICALLY A SMALL AMOUNT TO GROIN AREA TWICE DAILY., 01/14/25 3:16:00 PM EDT, 167.64, cm, 12/28/24 15:09:00 EDT, Height Start Date: 01/14/25 Status: Ordered Quantity: 283.0 Unit: g Repeat number: 1 levothyroxine 125 mcg (0.125 mg) oral tablet 1 tablet, By Mouth, Daily in AM, # 28 tablet, 11 Refills, Maintenance, 11/13/24 4:25:00 PM [facility], 167.64, cm, 07/10/24 11:06:00 EDT, Height Start Date: 11/13/24 Status: Ordered Quantity: 28.0 Unit: tablet Repeat number: 1 Robitussin Peak Cold Multi-Sympton Cold oral liquid 2.5 mL, By Mouth, Every 4 hours, PRN NEEDED FOR COUGH AND CONGESTION, # 237 mL, 0 Refills, Maintenance, 10/14/23 4:43:00 PM EST, [facility], 0, TAKE 2.5 ML BY MOUTH [...] tablet, Refills 11, Tot. Refills 11, Maintenance, 11/11/24 2:40:00 PM EST, Instructions Replace Required Details, Route to Pharmacy Electronically, [facility], 167.64, cm, 07/10/24 11:06:00 EDT, Height Start Date: 11/11/24 Status: Ordered Quantity: 2.0 Unit: tablet Repeat [...] Team Personnel Name: Kolby Centeno MD Position: S Physician - Primary Care Member Role: PCP Address: [address] [place] [address]- Telecom: Name: Trinidad Mcclellan RN Position: [facility] RN Member Role: Primary Care Nurse Care Team Related Persons Name: VALENTINA FELICIANO Insurance Providers Guarantor name: MALCOLM MCDANIELQUIERDO [facility] Information #: 1 Payer: MEDICARE B Payer Identifier: Member Number: [id number] Group Number: Subscriber Identifier: [id number] Relationship to Subscriber: self Coverage Type: NA Coverage Verification Date: NA Telecom: NA Address: Health Plan Information #: 2 Payer: [employer] Payer Identifier: Member Number: [id number] Group Number: Subscriber Identifier: [id number] Relationship to Subscriber: self Coverage Type: MEDICAID Coverage Verification Date: NA Telecom: Address:
--- OUTSIDE RECORDS SUMMARY | 2025-04-06 23:59 | XMS_ITS | Continuity of Care Document ---
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 Role Phone Kolby Centeno MD Primary Care Physician Encounter [facility] [id number] Date(s): 03/30/25 - 04/06/25 [facility] [address] [place] [address]- Attending Physician: Kolby Centeno MD Encounter Type: Office Visit Allergies, Adverse Reactions, Alerts No Known Allergies [...] vaccine 4 09/18/17 Given 1Result Comment: [07/18/2018] [facility] [id number] 2Result Comment: [07/26/2017] [facility] [id number] 3Result Comment: [09/18/2017] [facility] [id number] ADMINSITERED TO PT S/P ABRASION TO LEFT HAND PER DR CENTENO 4Result Comment: [09/18/2017] [facility] [id number] Medications amLODIPine 2.5 mg oral tablet 2.5 [...] tablet, 11 Refills, Maintenance, 09/24/24 8:47:00 AM [facility], 167.64, cm, 07/10/24 11:06:00 EDT, Height [...] tablet, 11 Refills, Maintenance, 11/13/24 4:25:00 PM [facility], 167.64, cm, 07/10/24 11:06:00 EDT, Height Start Date: 11/13/24 Status: Ordered Quantity: 28.0 Unit: tablet Repeat number: 1 Robitussin Peak Cold Multi-Sympton Cold oral liquid 2.5 mL, By Mouth, Every 4 hours, PRN NEEDED FOR COUGH AND CONGESTION, # 237 mL, 0 Refills, Maintenance, 10/14/23 4:43:00 PM EST, [facility], 0, TAKE 2.5 ML BY MOUTH EVERY [...] on: 06/06/18 Sex Sex Representation Male (finding) Note * Ariane Cruz: PERFORM Event Display: Patient Education/Instruction Authored Date: [id number] Ambulatory Adult Visit Summary [facility] [address] [place] [address] Name: MALCOLM BLISS : 1965?? Visit: 03/30/2025 15:45?? Ambulatory Visit Instructions ?? Your Care Team Primary Care Provider Kolby Centeno MD? This Visit Provider Kolby Centeno MD Vitals Signs Pulse Rate: 82 bpm Height: 167.64 cm Systolic Blood Pressure: 123 mm Hg Weight: 117.4 kg Diastolic Blood Pressure: 73 mm Hg Body Mass Index:??41.77 kg/m2??Critical Oxygen Saturation: 96 % Body surface area: 2.34 What to do next Follow-Up Appointments Follow Up with??Kolby Centeno MD Why: 4 months Where: [address] [place] [address]- Future Orders CBC w/ Differential - Routine, Once, 07/10/24 11:36:00 EDT, Order for Today, [facility], Blood?? Comprehensive Metabolic Panel - Routine, Once, 07/10/24 11:36:00 EDT, Order for Today, [facility], Blood?? Hemoglobin A1C (Monitoring) - Routine, Once, 07/10/24 11:36:00 EDT, Order for Today, [facility], Blood?? Lipid Panel - Routine, Once, 07/10/24 11:37:00 EDT, Order for Today, [facility], Blood?? TSH Rfx on Abnormal to Free T4 - Routine, Once, 07/10/24 11:37:00 EDT, Order for Today, [facility], Blood?? PSA Screen - Routine, Once, 07/10/24 11:37:00 EDT, Order for Today, [facility], Blood?? Basic Metabolic Panel - Routine, Once, 07/22/24 10:45:00 EDT, Future Order, [facility], Blood?? TSH - Routine, Once, 11/11/24 11:00:00 EST, Single or Recurring Future Order, [facility], Blood?? Medications The list below reflects the information in our records and provided by you today along with any changes made during this visit. Please continue your medications until treatment is completed or stopped by your provider. If this is different from the information you have or there are other questions,please contact the prescribing provider. What How Much When Instructions Changed Miscellaneous Rx (GOLD MERCADO ORIG STR 0.15% POWD) See instructions APPLY TOPICALLY A SMALL AMOUNT TO GROIN AREA TWICE DAILY. ?? Unchanged Amlodipine (amLODIPine 2.5 mg oral tablet) 1 tab(s) Oral Daily Unchanged Azelastine Ophthalmic (azelastine 0.05% ophthalmic solution) 1 Drops Both eyes Twice a day as needed for for allergy symptoms Unchanged Benazepril (benazepril 40 mg oral tablet) 1 tab(s) Oral Daily in the morning Unchanged Dextromethorphan/ Guaifenesin/ Phenylephrine (Robitussin Peak Cold Multi-Sympton Cold oral liquid) 2.5 Milliliter Oral Every 4 hours as needed for NEEDED FOR COUGH AND CONGESTION Unchanged DiphenhydrAMINE (Benadryl 25 mg oral tablet) 1 tab(s) Oral Every 4 hours PRN ?? Unchanged Fluoxetine (FLUoxetine 20 mg oral tablet) 1.5 tab(s) Oral Daily Unchanged Levothyroxine (levothyroxine 125 mcg (0.125 mg) oral tablet) 1 tab(s) Oral Daily in the morning Unchanged Topiramate (Topamax 25 mg oral tablet) 1 tab(s) Oral Daily Unchanged ValACYclovir (Valtrex 500 mg oral tablet) See instructions Twice daily PRN, given 12 hours apart. One day only. PO. PRN as needed. Reason: Cold Sore outbreak.?? Unchanged vibegron (Gemtesa 75 mg oral tablet) 1 tab(s) Oral Daily ?? What How Much When Why Comments Stop Taking Azithromycin (azithromycin 250 mg oral tablet) See instructions Acute bronchitis Take 2 tablets on day 1 and 1 tablet daily for next 4 days ?? Stop Taking Durable Medical Equipment (Four-wheeled walker with seat) See instructions Gait instability To be used daily to safely ambulate as is needed to complete all ADLs and IADLs. ?? Dx: Gait Instability ICD-10: R26.81 Ht:167.64cm Wt: 124.5kg ?? Stop Taking Durable Medical Equipment (Prodigy Lancets) See instructions Type 2 diabetes mellitus Check blood sugars levels once a day. DM2 (E11.9) ?? Stop Taking Durable Medical Equipment (Prodigy Test Strips) See instructions Type 2 diabetes mellitus Check blood sugars levels once a day. DM2 (E11.9) ?? Stop Taking Durable Medical Equipment (Prodigy twist top 28g lancets) See instructions Test BS daily, Dx: T2DM E11.9 ?? Stop Taking Menthol Topical (Gold Mercado Maximum Strength 1% topical powder) 1 mahad Topically Twice a day as needed for as needed for itching Stop Taking semaglutide (Wegovy (0.25 mg dose) subcutaneous solution) 0.25 Milligram Subcutaneous Infusion Every 7 days After 4 weeks increase to 0.5 mg weekly in the abdomen, thigh, or upper arm ?? Test Performed Below is a partial list of the tests performed during your Visit. You may have had other tests and procedures not included in this list. Please discuss all test results with your provider. POC HBA1C ([facility]) Lab Test Results Below is a partial list of the most recent Laboratory test results done during your Visit. You may have had other tests and procedures not included in this list. Please discuss all test results with your provider. Test Name Test Result Date/Time POC HBA1C ([facility]) 6.3 % 03/30/2025 16:27 EDT Point of Care Results POC HgA1C Results: 6.3 % (03/30/25) Medications and Immunizations Administered Medications Given During Visit No medications given during this visit.?? Allergies (NKA means No Known Allergies) NKA Common Emergency Awareness Tips IS IT A STROKE? Act FAST and Check for these signs: FACE Does the face look uneven? ARM Does one arm drift down? SPEECH Does their speech sound strange? TIME Call at any sign of stroke ?? Heart Attack Signs Chest discomfort: Most heart attacks involve discomfort in the center of the chest and lasts more than a few minutes, or goes away and comes back. It can feel like uncomfortable pressure, squeezing, fullness or pain. Discomfort in upper body: Symptoms can include pain or discomfort in one or both arms, back, neck, jaw or stomach. Shortness of breath: With or without discomfort. Other signs: Breaking out in a cold sweat, nausea, or lightheaded. Remember, MINUTES DO MATTER. If you experience any of these heart attack warning signs, call to get immediate medical attention! ?? Smoking can increase your chances of developing chronic health problems and can cause harmful effects to other family members in your house. If you smoke, you are strongly encouraged to quit. Please call [employer] at [phone] or [phone] ([phone]) or log in to [email or web address] for referrals to smoking cessation programs. ?? The National Suicide Prevention Hotline is available 29/04 if you or someone you know needs to find a reason to keep living. By calling 1-033-736-LogoGrab (1505) you'll be connected to a skilled, trained counselor at a crisis center in your area. [facility] [employer] Portal You can view and manage your care through the patient portal or by using a health care mahad of your choosing. [employer] is a website that allows you to securely view your medical information including your hospital discharge summary, office visit summaries, medications and follow-up visits. You can also request appointments, renew medications, and request access to your medical information using a health care amhad of your choosing, or just ask a question. You can enroll at [email or web address] or register during your next office visit. [facility], in keeping with [facility] guidance, no longer requires face masks for staff, patientsor visitors in most situations. Similiar to time spent indoors at other locations, there is the chance that you were exposed to repiratory viruses during your time with us (such as flu or COVID-19). If you develop symptoms concerning for a viral respiratory infection, please seek testing (and treatment if indicated) from your medical provider or home test kit. ?? Disclaimer: The information provided is of a general nature and is intended to be used in conjunction with the recommendations and advice of your health care practitioner. Every effort has been made to ensure that the information provided is accurate and complete at the time it is provided to you however, as your needs change, or, as new information becomes available, different or additional instructions may be required. ?? If you have questions, please consult with your primary care provider or pharmacist, as appropriate. This information is not intended to serve as substitution for assessment and evaluation by a qualified health care provider. If you do not have a primary care provider, you may find a [facility] [employer] provider by calling [employer] at [phone]. Patient Care team information Care Team Personnel Name: Kolby Centeno MD Position: [facility] Physician - Primary Care Member Role: PCP Address: [address] [place] [address]- Telecom: Name: Trinidad Mcclellan RN Position: [facility] RN Member Role: Primary Care Nurse Care Team Related Persons Name: VALENTINA FELICIANO Insurance Providers Guarantor name: [facility] [employer] [facility] Information #: 1 Payer: MEDICARE B Payer Identifier: Member Number: [id number] Group Number: Subscriber Identifier: [id number] Relationship to Subscriber: self Coverage Type: NA Coverage Verification Date: NA Telecom: NA Address: Health Plan Information #: 2 Payer: [employer] Payer Identifier: NA Member Number: [id number] Group Number: Subscriber Identifier: [id number] Relationship to Subscriber: self Coverage Type: MEDICAID Coverage Verification Date: Telecom: NA Address:
--- NOTE | ~2025-04-08 | XR_ITS ---
EXAMINATION: XR KNEE, LEFT CLINICAL INFORMATION: fall on left knee COMPARISON: None available. TECHNIQUE: Four views of the left knee. FINDINGS: There is no joint effusion. No fracture line is evident. Minimal osteophyte formation is present along the notch side the lateral femoral condyle and adjacent tibial spine. XR/XR knee LT 4V IMPRESSION: Very mild osteoarthritis Electronically signed by: Saturnino Glass MD 04/08/2025 03:08 PM EDT
[2025-04-08 14:14] VITALS: BP 128/72; PULSE 68; O2SAT 97
[2025-04-08 14:16] VITALS: BP 133/77; PULSE 64; RESP 18; TEMP 36.8; O2SAT 98; BMI 42.4
--- NOTE | 2025-04-08 14:26 | ED.FALL ---
HPI - Fall General Chief Complaint: Fall Stated Complaint: fall Time Seen by Provider: 04/08/25 14:24 Source: patient, EMS and other ([facility] staff- Thelma) Mode of arrival: EMS Limitations: other (developmental delay) History of Present Illness ED Provider: LAUREL FOX PA-C HPI Narrative: 59 year old male with pmhx significant for HTN, T1DM, cerebral palsy, BPH presents to the ED today with [facility] staff director via EMS for evaluation s/p mechanical fall occurring approximately 1 hour prior to arrival in ED. While at adult daycare today, patient had a witnessed trip and fall in front of staff. Reports falling onto bilateral knees. No head strike or LOC. No thinners. He was able to stand and ambulate after the fall. He began endorsing mild left knee pain. Pain is currently 1/10. care home director then called EMS for patient to be evaluated per protocol. He has no other complaints at present. Denies numbness, tingling, weakness of the LLE. He typically ambulates with a walker at baseline. Will occasionally use a wheel chair during transportation to day care. Related Data Home Medications ?Medication ?Instructions ?Recorded ?Confirmed blood sugar diagnostic #10 ea 04/13/21 01/30/24 benazepril 40 mg tablet 40 mg PO DAILY 06/28/22 01/30/24 lancets 28 gauge (Prodigy Twist #100 ea 06/29/22 01/30/24 Top Lancet) levothyroxine 125 mcg tablet 125 mcg PO DAILY 06/29/22 01/30/24 nystatin 100,000 unit/gram topical topical 06/29/22 01/30/24 powder (Nystop) topiramate 25 mg tablet 25 mg PO BID 06/29/22 01/30/24 fluoxetine 10 mg capsule 30 mg PO 01/29/24 01/30/24 Previous Rx's ?Medication ?Instructions ?Recorded vibegron 75 mg tablet (Gemtesa) 75 mg PO DAILY 90 days #90 tabs 03/17/25 ibuprofen 600 mg tablet 600 mg PO Q8H PRN pain (scale 04/08/25 score 4-6) #30 tabs Allergies Allergy/AdvReac Type Severity Reaction Status Date / Time No Known Allergies (No Known Allergy Verified 04/08/25 14:21 Allergies*) Review of Systems Review of Systems: Constitutional: No fever, chills, fatigue, night sweats, weight changes ENT/Mouth: No ear pain, hearing loss, nasal congestion, sinus pain, rhinorrhea, sore throat Eyes: No eye pain, swelling, redness, vision changes, discharge Cardio: No chest pain, palpitations, REY, orthopnea, peripheral edema Pulm: No SOB, cough, sputum, wheezing, dyspnea, hemoptysis GI: No nausea, vomiting, hematemesis, abdominal pain, diarrhea, constipation, hematochezia, melena : No irregular bleeding, dysuria, frequency, urgency, hesitancy, hematuria, flank pain, urinary flow changes, urinary incontinence or retention MSK: No back pain, neck pain, joint pain, myalgias, +L knee pain Skin: No lesions, rashes Neuro: No weakness, numbness, paresthesias, LOC, dizziness, headache Psych: No anxiety/panic, depression, SI/HI, AH/VH All other systems reviewed and are negative. [facility] Past Medical History Attestation statement: The following information was validated with the patient. Source: old records reviewed and nursing notes reviewed Medical History Hypertension Diabetes mellitus type 1 Social History Social History Alcohol intake: never Patient Tobacco Use Status: Never used Tobacco Advance Directives: No Advance Directives Information Provided: Yes Do you have a plan to hurt others: No Plan Physical Exam Vital Signs: Vital Signs: Last Vital Signs Temp 97.9 F 04/08/25 16:09 Pulse 69 04/08/25 16:09 Resp 16 04/08/25 16:09 BP 110/60 04/08/25 16:09 Pulse Ox 99 04/08/25 16:09 O2 Del Method Room Air 04/08/25 16:09 BMI result Body Mass Index 42.4 vital signs stable General: Well appearing, in no acute distress. Skin: Warm, dry, intact. No rashes or lesions. Head: Normocephalic, atraumatic. EENT: Hearing is intact b/l. Conjunctiva clear. PERRLA. EOM intact. Moist mucous membranes.? Cardiac: Chest wall symmetric. RRR Lungs: Normal respiratory effort without accessory muscle use. CTA bilaterally. No rales, rhonchi, or wheezes.? Abdomen: Soft, non-tender, non-distended. No rebound tenderness or guarding. Positive BS x4. Back: No midline spinous or paraspinal tenderness. No step off deformity. Ext: +L knee without overlying skin changes. no open wounds/ abrasions. FROM intact to L knee, no pain on flexion or extension. no tenderness to palpation of L knee, no deformity or crepitus. no high riding patella. 2+ DP/PT pulse intact. Compartments soft, compressible. Sensation intact. No calf tenderness. Ambulating with steady gait. Medical Decision Making Medical Decision Making MDM Narrative: 59 year old male with pmhx significant for HTN, T1DM, cerebral palsy, BPH presents to the ED today with [facility] staff director via EMS for evaluation s/p mechanical fall occurring approximately 1 hour prior to arrival in ED. vital signs stable. He is well-appearing and in no acute distress. Lying comfortably on the exam bed. On exam, left knee without overlying skin changes. no open wounds/ abrasions. FROM intact to L knee, no pain on flexion or extension. no tenderness to palpation of L knee, no deformity or crepitus. no high riding patella. 2+ DP/PT pulse intact. Sensation intact. Compartment soft and compressible. No calf tenderness. ambulating with steady gait. Differential diagnosis includes knee contusion, fracture, MSK sprain/strain, ligament/tendon injury, knee effusion, hematoma Unlikely neurovascular compromise, threat to limb, compartment syndrome Plan for x-rays and disposition. Differential Diagnosis Differential Diagnoses: The differential diagnosis associated with the presentation includes as above. Admission/Observation not indicated. Independent Interpretation I performed an independent interpretation of an: Plain X-Ray Interpretation: XR left knee without fracture, effusion Radiology Impression Discussion of test interpretation with radiology: I have reviewed the radiologist's reading. Radiologist Impression: Procedure(s): XR knee LT 4V Accession Number(s): [id number] cc: Tamra Quinones MD; Kolby Lea MD~ EXAMINATION: XR KNEE, LEFT CLINICAL INFORMATION: fall on left knee COMPARISON: None available. TECHNIQUE: Four views of the left knee. FINDINGS: There is no joint effusion. No fracture line is evident. Minimal osteophyte formation is present along the notch side the lateral femoral condyle and adjacent tibial spine. XR/XR knee LT 4V IMPRESSION: Very mild osteoarthritis Electronically signed by: Saturnino Glass MD 04/08/2025 03:08 PM EDT Independent Historian Clinical information obtained from an independent historian. History obtained from or confirmed by: EMS and Other ([facility] staff) External Record Review External record reviewed: Inpatient record Prescription Management I considered prescription management with: Pain Medication Social Determinants Patient?s care significantly limited by Social Determinants of Health including: Other Social Determinant of Health Critical Care Time Critical Care Time Critical Care Time: No Discharge Plan Discharge Clinical Impression: Contusion of left knee Patient Disposition: Home, Self-Care Instructions: Contusion in Adults (ED) Additional Instructions: Juan was evaluated in the ED today for left knee pain following a fall. The x-ray of his left knee is normal. It shows mild osteoarthritis. There is no fracture. His exam is not concerning for ligament or tendon injury. He likely has a contusion. Rest, Ice, Compress, Elevate the left knee. I recommend you take 600mg ibuprofen every 8 hours as needed for left knee pain. Follow up with outpatient providers as needed. Return with new or worsening symptoms. In the case of an emergency call 911. Prescriptions: New ibuprofen 600 mg tablet 600 mg PO Q8H PRN (Reason: pain (scale score 4-6)) Qty: 30 0RF Rx Instructions: take 1 tab every 8 hours as needed for left knee pain No Action Gemtesa 75 mg tablet 75 mg PO DAILY 90 Days Qty: 90 0RF (DME) FreeStyle Lite Strips Strip See Rx Instructions Not Applicable DAILY Qty: 10 Rx Instructions: As directed benazepril 40 mg tablet 40 mg PO DAILY topiramate 25 mg tablet 25 mg PO BID levothyroxine 125 mcg tablet 125 mcg PO DAILY nystatin [Nystop] 100,000 unit/gram powder topical (DME) lancets [Prodigy Twist Top Lancet] 28 gauge misc See Rx Instructions .ROUTE .MEDSUPPLY Qty: 100 Rx Instructions: As directed fluoxetine 10 mg capsule 30 mg PO Referrals: Kolby Lea MD [Primary Care Provider, Internal Medicine] Interventions: ED Discharge Assessment Last Done: 04/08/25 16:09 Discharge Date/Time: 04/08/25 16:10 Print Language: Yi
[2025-04-08 15:22] VITALS: BP 137/80; PULSE 66; RESP 20; TEMP 36.9; O2SAT 93
[2025-04-08 16:09] VITALS: BP 110/60; PULSE 69; RESP 16; TEMP 36.6; O2SAT 99
== END 2025-04-08 16:10 | disposition home or self-care (01) ==
PROVIDERS: Emergency Provider Emergency Medicine Emergency Medical Services; PCP Family Medicine
DX: S80.02XA Contusion of left knee, initial encounter (principal); M25.562 Pain in left knee; W01.0XXA Fall on same level from slipping, tripping and stumbling without subsequent striking against object, initial encounter; Y93.9 Activity, unspecified; Y92.9 Unspecified place or not applicable; Y99.8 Other external cause status; Z79.899 Other long term (current) drug therapy
CPT/HCPCS: 73564; 99283

== ENCOUNTER 2025-05-24 08:30 | Outpatient (AMB) | payer MEDICARE, MEDICAID, SELFPAY ==
--- NOTE | 2025-05-24 08:39 | A.OFFVIS_ITS ---
Intake Visit Reasons: Follow up/ PVR Intake Note: Patient is present for: FOLLOW UP Urology Medications: Gemtesa Blood thinner: none Post Void Residual: 400 MLS Paper Box Cutter Required: No Accompanied by: Unknown Allergies No Known Allergies (No Known Allergies*) Allergy (Verified 05/24/25 20:44) Medication List - Last Reconciled 05/24/25 by PENNY FrancoP- amlodipine 2.5 mg PO DAILY benazepril 40 mg PO DAILY blood sugar diagnostic As directed fluoxetine 30 mg PO ibuprofen 600 mg PO Q8H PRN lancets (Prodigy Twist Top Lancet) As directed levothyroxine 125 mcg PO DAILY topiramate 25 mg PO BID topiramate (Topamax) 25 mg PO DAILY vibegron (Gemtesa) 75 mg PO DAILY vibegron (Gemtesa) 75 mg PO DAILY 90 days HPI Comments Details: Juan is a pleasant 59-year-old male patient of Dr. Lea who was accompanied by his staff member/cotton program technician at today's office visit. He has a past medical history of hypertension, diabetes, and developmental delay. He presents to the office today for follow-up of his urinary incontinence and lower urinary tract symptoms (urinary urgency and urinary frequency). In discussion with the patient and his cotton program technician today he continues to report episodes of incontinence despite trial of Gemtesa. He also continues to report episodes of nocturnal enuresis. Unable to obtain urine for urinalysis today as patient unable to void however PVR 400 mL. We did discussed incomplete bladder emptying in the setting of overactive bladder medications. We discuss discontinuation of Gemtesa given increase in postvoid residuals as well as patient continues to report episodes of incontinence. Previous workup has included a retroperitoneal ultrasound 03/30 noting bilateral kidneys with no calculi, lesions, and or hydronephrosis. The bladder wall is thickened and mildly trabeculated. Pre void bladder volume is approximately 230 mL. Postvoid bladder volume is approximately 20 mL. Prostate is normal volume at 18 mL. PSA 04/29 0.2, 05/31 0.7 We discussed obtaining bladder diary for further assessment evaluation we also discussed the importance of continuing with timed/scheduled voiding to decreased episodes of urge incontinence given decreased mobility as well as attempting to sit when voiding to relax pelvis to assist with incomplete bladder emptying. 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 [facility] Medical History Hypertension Diabetes mellitus type 1 Social History Alcohol intake: never Patient Tobacco Use Status: Never used Tobacco Review of Systems Const Unobtainable due to mental condition Physical Exam Const General: cooperative, healthy appearing, comfortable, no acute distress, well developed, alert and awake Orientation/consciousness: oriented to person Limitations: ambulation with walker HEENT Head: Yes normal to inspection, Yes normocephalic and Yes atraumatic Ears: hearing grossly normal bilaterally Eyes General: appearance normal, both eyes and all related structures Neck Neck: Yes normal visual inspection and Yes trachea midline Chest Chest palpation & inspection: normal inspection of the chest Resp Effort & Inspection: normal respiratory effort and able to speak in complete sentences Cardio Rate: regular rate GI Inspection: Yes normal to inspection General: Yes no CVA tenderness Back/Spine/Pelvis Back: no CVA tenderness Skin General skin exam: no rashes or lesions noted Neuro General: oriented to person Extrem General: Yes normal to inspection Psych Appearance: grossly normal and well kempt Mental Status: other Speech and movement: Slowed speech present (Psych) Affect: normal affect Attitude: cooperative Insight: Limited insight present (Psych) Judgement: Limited judgement present (Psych) Office Procedures Post Void Residual Post Residual Void Post Void Residual (PVR): 400 [id number]-Grkw Void Residual by ultrasound Assessment & Plan Assessment & Plan (1) Urinary urgency: Code(s): R39.15 - Urgency of urination Category: Medical (2) Bladder outlet obstruction: Code(s): N32.0 - Bladder-neck obstruction Category: Medical (3) Urinary hesitancy due to benign prostatic hyperplasia: Code(s): N40.1 - Benign prostatic hyperplasia with lower urinary tract symptoms; R39.11 - Hesitancy of micturition Category: Medical (4) Bladder wall thickening: Code(s): N32.89 - Other specified disorders of bladder Category: Medical Plan Unable to obtain urine for urinalysis however PVR 400 mL. Will stop Gemtesa. He denies any UTI like symptoms. We discussed obtaining bladder diary for further assessment evaluation. Will obtain PSA for further assessment evaluation. We discussed importance of timed/scheduled voiding. We discussed healthy bathroom behaviors. Follow-up in 2 months with PSA and PVR; or sooner with any issues, concerns, and or questions. Orders: Orders Prostate Specific Antigen Today N40.1 - Benign prostatic hyperplasia with lower urinary tract symptoms, R39.11 - Hesitancy of micturition AMB Post Void Residual by ultrasound Today R39.15 - Urgency of urination Patient Instructions: The patient had an opportunity to ask questions regarding the treatment plan. All questions were answered. Physical exam, labs, and imaging were discussed and reviewed in detail. As well as risks, benefits, and discussion of treatment choices. No major barriers to understanding were identified. The patient expressed understanding and agreement with the above treatment plan. The patient was made aware they should contact our office by phone for worsening of their current condition, the appearance of new symptoms, or with any questions or concerns. Compliance is encouraged with any medications and follow up testing that is ordered. It is a privilege to be allowed the opportunity to participate in? your urological care.? Again, if you have any questions or concerns If you have any questions or concerns please do not hesitate to contact me. The office is [phone]. This note is constructed using voice recognition software. While every effort has been made to ensure accuracy regulatory coordinator errors may have been included. Yours sincerely, WYATT Franco Coding Level of Care Code Est Pt Level 3 (68100) Complex EM visit Add On G2211 Diagnoses Urinary urgency R39.15 Bladder outlet obstruction N32.0 Urinary hesitancy due to benign prostatic hyperplasia N40.1; R39.11 Bladder wall thickening N32.89 CPT Codes Post Residual Void - PVR CPT Code: 29608-Wozn Void Residual by ultrasound ([id number])
== END 2025-05-24 09:24 | disposition home or self-care (01) ==
LOC: HO.HUSH 08:30
PROVIDERS: PCP Family Medicine; Visit Provider Nurse Practitioner Family
DX: N40.1 Benign prostatic hyperplasia with lower urinary tract symptoms (principal); R39.15 Urgency of urination; N32.0 Bladder-neck obstruction; R39.11 Hesitancy of micturition; N32.89 Other specified disorders of bladder
CPT/HCPCS: 99213; G2211

== ENCOUNTER 2025-05-24 09:32 | Outpatient (REF) | payer MEDICARE, SELFPAY ==
[2025-05-24 11:13] LABS: Prostate Specific Antigen 0.67 ng/mL (<0.05-4.0)
== END 2025-05-24 09:33 | disposition home or self-care (01) ==
LOC: HO.10HDL 09:32
PROVIDERS: Visit Provider Nurse Practitioner Family
DX: Z12.5 Encounter for screening for malignant neoplasm of prostate (principal); R39.11 Hesitancy of micturition; N40.1 Benign prostatic hyperplasia with lower urinary tract symptoms
CPT/HCPCS: 36415; 51798; 84153; 99212

== ENCOUNTER 2025-07-27 09:23 | Outpatient (REF) | payer MEDICARE, MEDICAID, SELFPAY | END 2025-07-27 09:24 | disposition home or self-care (01) | LOC: HO.LAB 09:23 | PROVIDERS: PCP Family Medicine; Visit Provider Nurse Practitioner Family | DX: N39.41 Urge incontinence (principal); N32.89 Other specified disorders of bladder; R35.0 Frequency of micturition; Z13.89 Encounter for screening for other disorder | CPT/HCPCS: 51798; 81003; 88112; 99212 ==

== ENCOUNTER 2025-07-27 09:23 | Outpatient (AMB) | payer MEDICARE, MEDICAID, SELFPAY ==
--- NOTE | 2025-07-27 09:25 | A.OFFVIS_ITS ---
Intake Visit Reasons: 2m/PSA/PVR Intake Note: Patient is present for 2M/PSA/PVR Urology Medication:NONE Antibiotic Allergy:NONE Blood Thinner:NONE Todays PVR:0ML'S Rn Lactation Consultant Required: No Allergies No Known Allergies (No Known Allergies*) Allergy (Verified 07/27/25 10:22) Medication List - Last Reconciled 07/27/25 by RAMON Franco- amlodipine 2.5 mg PO DAILY benazepril 40 mg PO DAILY blood sugar diagnostic As directed fluoxetine 30 mg PO ibuprofen 600 mg PO Q8H PRN lancets (Prodigy Twist Top Lancet) As directed levothyroxine 125 mcg PO DAILY mirabegron ER (Myrbetriq) 25 mg PO DAILY 30 days topiramate 25 mg PO BID topiramate (Topamax) 25 mg PO DAILY HPI Comments Details: Juan is a pleasant 59-year-old male patient of Dr. Lea who was accompanied by his staff member/adult family home program manager at today's office visit. He has a past medical history of hypertension, diabetes, and developmental delay. He presents to the office today for follow-up of his urinary incontinence and lower urinary tract symptoms (urinary urgency and urinary frequency). Of note, patient was seen approximately 2 months ago at which time Gemtesa was discontinued as patient was noted to have increased postvoid residual. In discussion with the patient and staff today they report patient has had worsening urinary symptoms since discontinuation of Gemtesa. They report multiple episodes of mixed urinary incontinence as well as urinary frequency. In office urinalysis results reviewed with the patient today. PVR 0 mL. Previous workup has included a retroperitoneal ultrasound 03/30 noting bilateral kidneys with no calculi, lesions, and or hydronephrosis. The bladder wall is thickened and mildly trabeculated. Pre void bladder volume is approximately 230 mL. Postvoid bladder volume is approximately 20 mL. Prostate is normal volume at 18 mL. PSA 04/29 0.2, 05/31 0.7 Bladder diary was reviewed. It appears patient with multiple episodes of mixed urinary incontinence. We did discussed importance of timed/scheduled voiding. We did discussed potential causes of lower urinary tract symptoms as well as further treatment options and risks and benefits of these treatment options. 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 [facility] Medical History Hypertension Diabetes mellitus type 1 Social History Alcohol intake: never Patient Tobacco Use Status: Never used Tobacco Review of Systems Const Unobtainable due to mental condition Physical Exam Const General: cooperative, healthy appearing, comfortable, no acute distress, well developed, alert and awake Orientation/consciousness: oriented to person Limitations: ambulation with walker HEENT Head: Yes normal to inspection, Yes normocephalic and Yes atraumatic Ears: hearing grossly normal bilaterally Eyes General: appearance normal, both eyes and all related structures Neck Neck: Yes normal visual inspection and Yes trachea midline Chest Chest palpation & inspection: normal inspection of the chest Resp Effort & Inspection: normal respiratory effort and able to speak in complete sentences Cardio Rate: regular rate GI Inspection: Yes normal to inspection General: Yes no CVA tenderness Back/Spine/Pelvis Back: no CVA tenderness Skin General skin exam: no rashes or lesions noted Neuro General: oriented to person Extrem General: Yes normal to inspection Psych Appearance: grossly normal and well kempt Mental Status: other Speech and movement: Slowed speech present (Psych) Affect: normal affect Attitude: cooperative Insight: Limited insight present (Psych) Judgement: Limited judgement present (Psych) Office Procedures Post Void Residual Post Residual Void Post Void Residual (PVR): 0 [id number] Void Residual by ultrasound Results AMB Urinalysis, Automated UA Leukoctes 500 Gustabo/uL Last Edit by RADHA Canas on 07/27/25 09:57 UA Nitrite Negative Last Edit by RADHA Canas on 07/27/25 09:57 UA Urobilinogen 0.2 mg/dL Last Edit by RADHA Canas on 07/27/25 09:5 7 UA Protein 15 mg/dL Last Edit by RADHA Canas on 07/27/25 09:57 UA pH 6.0 Last Edit by RADHA Canas on 07/27/25 09:57 UA Blood 25 Harish/uL Last Edit by RADHA Canas on 07/27/25 09:57 UA Specific [place] 1.015 Last Edit by RADHA Canas on 07/27/25 09: 57 UA Ketone Negative Last Edit by RADHA Canas on 07/27/25 09:57 UA Bilirubin 0 mg/dL Last Edit by RADHA Canas on 07/27/25 09:57 UA Glucose 0 mg/dL Last Edit by RADHA Canas on 07/27/25 09:57 Results Reviewed Results Reviewed: Laboratory Last Values Urine pH (Auto) 6.0 07/27/25 09:56 Specific [place] (Auto) 1.015 07/27/25 09:56 Urine Protein (Auto) 15 mg/dL 07/27/25 09:56 Glucose (UA)(Auto) 0 mg/dL 07/27/25 09:56 Urine Ketones (Auto) Negative 07/27/25 09:56 Urine Blood (Auto) 25 Harish/uL 07/27/25 09:56 Urine Nitrite (Auto) Negative 07/27/25 09:56 Urine Bilirubin (Auto) 0 mg/dL 07/27/25 09:56 Urine Urobilinogen (Auto) 0.2 mg/dL 07/27/25 09:56 Leukocyte Esterase (Auto) 500 [place]abo/uL 07/27/25 09:56 Assessment & Plan Assessment & Plan (1) Urinary urgency: Code(s): R39.15 - Urgency of urination Category: Medical (2) Urge incontinence: Code(s): N39.41 - Urge incontinence Category: Medical (3) Bladder wall thickening: Code(s): N32.89 - Other specified disorders of bladder Category: Medical (4) Urinary frequency: Code(s): R35.0 - Frequency of micturition Category: Medical Plan In office urinalysis results reviewed with the patient today; as noted above. PVR 0 mL. We did discussed at length potential causes of lower urinary tract symptoms as well as further treatment options and risks and benefits of these treatment options. All questions were answered. We discussed the importance of timed/scheduled voiding. Start Myrbetriq as discussed and prescribed. Recent PSA results reviewed with the patient today; as noted above. Follow-up in 1-3 months with PVR; or sooner with any issues, concerns, and or questions. Orders: Orders Urine Cytology Today R31.29 - Other microscopic hematuria AMB Urinalysis Automated Today Z13.9 - Encounter for screening, unspecified Medications: New mirabegron ER (Myrbetriq) 25 mg PO DAILY 30 tabs 3RF 30 days N32.81 - Overactive bladder, R35.1 - Nocturia, R39.15 - Urgency of urination Patient Instructions: The patient had an opportunity to ask questions regarding the treatment plan. All questions were answered. Physical exam, labs, and imaging were discussed and reviewed in detail. As well as risks, benefits, and discussion of treatment choices. No major barriers to understanding were identified. The patient expressed understanding and agreement with the above treatment plan. The patient was made aware they should contact our office by phone for worsening of their current condition, the appearance of new symptoms, or with any questions or concerns. Compliance is encouraged with any medications and follow up testing that is ordered. It is a privilege to be allowed the opportunity to participate in? your urological care.? Again, if you have any questions or concerns If you have any questions or concerns please do not hesitate to contact me. The office is [phone]. This note is constructed using voice recognition software. While every effort has been made to ensure accuracy tow picker errors may have been included. Yours sincerely, WYATT Franco Coding Level of Care Code Est Pt Level 4 (05031) Complex EM visit Add On G2211 Diagnoses Urinary urgency R39.15 Urge incontinence N39.41 Bladder wall thickening N32.89 Urinary frequency R35.0 CPT Codes Post Residual Void - PVR CPT Code: 95041-Zgfj Void Residual by ultrasound ([id number])
--- OUTSIDE RECORDS SUMMARY | 2025-07-27 10:24 | XMS_ITS | Data Portability ---
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 Patient has intellectual disability and is only to reports partial history; he is not a reliable historian; he states that his eyes are itchy and shut closed when he wakes up; he is not sure for how long he had symptoms. Staff member present on scene is not able to reports any history stating that she is not a medical person . Comorbidities: asthma, diabetes; HTN, intellectual disability; ADD, OCD, BPH, CP, overreactive bladder, hypothyroidism Exam: obese middle age male, well appearing, no acute distress, non-toxic appearance; alert; unable to assess for orientation due to intellectual disability; ambulates independently without difficulty Pupils are equal, round, reactive to light with extraocular movements intact. Visual acuity is 20/20 in both eyes, funduscopic examination is unremarkable; conjunctivae is mildly erythematous; small amount of purulent discharge noted. No light sensitivity, hemorrhage, or foreign body noted; No abnormalities visualized with fluorescein staining; Heart sounds are regular rate and rhythm; no audible murmurs, rubs, or gallops No signs of respiratory distress. Lungs are clear to auscultation in all fileds DDx considered, but not limited to: Allergic/Bacteria l conjunctivitis - most likely dx based on clinical presentation Dacrocystitis/Dac roadenitis - unlikely, physical exam does not support this dx Periorbital/orbit al cellulitis - unlikely, physical exam does not support this dx keratitis/Sclerit is/Uveitis - unlikely, no photophobia or FB sensation Work up/Results: none Plan/Discussion: - based on clinical presentation allergic conjunctivitis with secondary bacterial infection is the most likely diagnosis; - start erythromycin eye ointment, zaditor eye drops - for seasonal allergies may take Zyrtec once a day - follow up with PCP as needed within 3-5 days or sooner if symptoms worsen or do not improve - advised when to seek immediate medical attention/911/ED - patient expressed understanding and agreed to tx plan In order to obtain further information and compare any laboratory results/values, I have accessed patient records on the [facility]. This information was pertinent in my medical decision making today. Protective Equipment (PPE), including gloves, eye protection, masks, and gowns, shoe covers were donned and doffed appropriately and all equipment cleaned using approved technique with germicidal disposable wipes prior to and after care of this patient according to [facility]'s infection prevention protocols. Time on-scene represents total face to face time with patient. More than 50% of the visit was spent in counseling/coordi nation of the patient's care. Topics discussed include: Diagnostic results and impressions, instructions for management/plan, follow up care/referrals and patient and/or family education. I also reviewed new medications, use and side effects I specifically discussed _new medication ___. Time On Scene with Patient: 01:07:34 nevin Not available 03/11/2020 15:49:57 Plan of Treatment Reminders Order Date Submit Date Provider Last Modified By Organization Details Last Modified Time Details Appointments None recorded. Lab None recorded. Referral None recorded. Procedures None recorded. Surgeries None recorded. Imaging None recorded. Medication Orders Zyrtec 10 mg tablet 2019 020 [facility], [address] [employer] [facility], [place], [address], 0 15:02:23 Zaditor 0.025 % (0.035 %) eye drops 2019 020 [facility], [address] [employer], [address], 0 14:58:27 erythromyc in 5 mg/gram (0.5 %) eye ointment 2019 020 INTERFACE [facility], [address] [facility], [place], [address], 0 14:58:21 Patient TargetsNo targets recorded. Patient Instructions Encounter Date Encounter Id Patient Instructions Last Modified By Organization Details Last Modified Time 03/11/2020 [id number] Thank you for yo ur [facility] with [facility]. We cannot always find the exact cause of your symptoms during your initial visit. Please follow up with your primary care provider or specialist as needed to be rechecked or seek medical attention if your symptoms do not go away or get worse. If you develop any new or worsening symptoms and need after hours care, please go to nearest ER and/or call 911. If you have additional concerns or develop a change in your condition between 8am-10pm, please call [employer] at [phone] to help navigate your care. nevin Not available 03/11/2020 14:56:27 Reason for Referral None Reported. Problems No Known Problems Medical Equipment None Reported. Medications Name Sig Start Date Stop Date Status Note LastModified by Organization Details LastModified Time oxybutynin chloride ER 15 mg tablet,exten ded release 24 hr active Not Available Not Available Not Available metformin 850 mg tablet active Not Available Not Available Not Available topiramate 25 mg tablet active Not Available Not Available Not Available Zyrtec 10 mg tablet Take 1 tablet every day by oral route for 14 days. 2019 active Not Available Not Available Not Avai lable valacyclovir 500 mg tablet active Not Available Not Available Not Available oxycodone-ac etaminophen 5 mg-325 mg tablet active Not Available Not Available Not Available erythromycin 5 mg/gram (0.5 %) eye ointment APPLY 1 CM RIBBON INTO THE LOWER CONJUNCTIVA L SAC(S) IN THE AFFECTED EYE(S) BY OPHTHALMIC ROUTE 3 TIMES PER DAY 2019 active Not Available Not Available Not Avai lable levothyroxin e 125 mcg tablet active Not Available Not Available Not Available fluoxetine 10 mg capsule active Not Available Not Available Not Available Zaditor 0.025 % (0.035 %) eye drops INSTILL 1 DROP INTO AFFECTED EYE(S) BY OPHTHALMIC ROUTE 2 TIMES PER DAY 2019 active Not Available Not Available Not Avai lable ibuprofen 600 mg tablet active Not Available Not Available Not Available risperidone 0.5 mg tablet active Not Available Not Available Not Available Alcohol Prep Pads active Not Available Not Available Not Available topiramate 50 mg tablet active Not Available Not Available Not Available amlodipine 10 mg-benazepri l 40 mg capsule active Not Available Not Available Not Available Myrbetriq 50 mg tablet,exten ded release active Not Available Not Available Not Available Vitals Date Recorded Respiratory rate Body temperature Oxygen saturation Oxygen saturation in Arterial blood by Pulse oximetry Heart rate Systolic And Diastolic Provider Name and Address Organization Details Last Updated DateTime 0 16 /min 97.8 [degF] 97 % 97 % 68 /min 136/80 mm[Hg] Not Available [facility] 0 14:46:17 Social History None recorded. Functional Status None recorded. Mental Status None recorded. Family History Nothing Reported. Medical History Condition Response Diabetes Y Coronary Artery Disease N High Cholesterol N Pulmonary Embolism N Cancer N Stroke N Hypertension Y Depression N COPD N Asthma Y Kidney Disease N Past Encounters Encounter ID Performer Location Encounter Start Date Encounter Closed Date Diagnosis/Indication Diagnosis SNOMED-CT Code Diagnosis ICD10 Code Diagnosis IMO Codes Diagnosis Note [id number] MICAH PARKS [facility] [address] [place] [address] 03/11/2020 14:41:00 03/13/2020 21:30:30 Conjunctivitis 7670698 H10.9 Seasonal allergy 8671653 04 J30.2 Health Concerns Section Related Observation LastModified by Organization Detai ls LastModified Time None Recorded Concern Status LastModified by Organization Details LastModified Time None Recorded Advance Directives Directive None Recorded Payers Insurance Date Sequence Insurance Name Policy Number Policy Bryant Covered Member ID Bryant Member ID Guarantor Name 03/11/2020 1 *SELF PAY* Juan Jaramillo [id number] Juan Jaramillo 03/11/2020 2 [place] Juan Jaramillo [id number] Juan Jaramillo 03/11/2020 1 [place] [employer] Juan Jaramillo [id number] Juan Jaramillo Notes Date Note Type Note Provider Name and Address Organization Details Recorded Time 03/11/2020 text/html Mr. Jaramillo is a 54 yo male resident of the [facility] who presents for evaluation of red eyes and eye discharge. Patient has intellectual disability and is only to reports partial history; he is not a reliable historian; he states that his eyes are itchy and shut closed when he wakes up; he is not sure for how long he had symptoms. Staff member present on scene is not able to reports any history stating that she is not a medical person . MICAH PARKS [address] [place], [address], [place] - [facility] 03/11/2020 15:50:14
== END 2025-07-27 10:10 | disposition home or self-care (01) ==
PROVIDERS: PCP Family Medicine; Visit Provider Nurse Practitioner Family
DX: R39.15 Urgency of urination (principal); N39.41 Urge incontinence; N32.89 Other specified disorders of bladder; R35.0 Frequency of micturition; Z13.9 Encounter for screening, unspecified
CPT/HCPCS: 99214; G2211

== ENCOUNTER 2025-09-13 13:34 | Emergency (ER) | payer MEDICARE, MEDICAID, SELFPAY ==
[2025-09-13 13:54] VITALS: BP 160/80; PULSE 69; RESP 18; TEMP 36.8; O2SAT 96; BMI 46.2
--- NOTE | 2025-09-13 14:51 | ED.GENADULT ---
HPI - General Adult General Chief complaint: Fall Stated complaint: fall Time Seen by Provider: 09/13/25 14:34 Source: patient Mode of arrival: ambulatory Limitations: no limitations History of Present Illness ED Provider: Kushal Contreras HPI narrative: 59 yold with past medical history of BPh presents to ED for evaluation after fall insight bed. Patient is from custodial. While in transport van of the ramp patient is using a walker slightly fell onto his knees and his lower belly hit the lower part of the walker. Follow up with a witness. Denies hitting head, passing out, abdominal pain, nausea, vomitting, chest pain, back pain, pain in extremities, or weakness. Patient denies any symptoms. Patient is asymptomatic. Patient is not any blood thinners. Related Data Home Medications ?Medication ?Instructions ?Recorded ?Confirmed blood sugar diagnostic #10 ea 04/13/21 07/27/25 benazepril 40 mg tablet 40 mg PO DAILY 06/28/22 07/27/25 lancets 28 gauge (Prodigy Twist #100 ea 06/29/22 07/27/25 Top Lancet) levothyroxine 125 mcg tablet 125 mcg PO DAILY 06/29/22 07/27/25 topiramate 25 mg tablet 25 mg PO BID 06/29/22 07/27/25 fluoxetine 10 mg capsule 30 mg PO 01/29/24 07/27/25 amlodipine 2.5 mg tablet 2.5 mg PO DAILY 05/24/25 07/27/25 topiramate 25 mg tablet (Topamax) 25 mg PO DAILY 05/24/25 07/27/25 Previous Rx's ?Medication ?Instructions ?Recorded ibuprofen 600 mg tablet 600 mg PO Q8H PRN pain (scale 04/08/25 score 4-6) #30 tabs mirabegron 25 mg tablet,extended 25 mg PO DAILY 30 days #30 tabs 07/27/25 release 24 hr (Myrbetriq) Allergies Allergy/AdvReac Type Severity Reaction Status Date / Time No Known Allergies (No Known Allergy Verified 09/13/25 13:57 Allergies*) Review of Systems Review of Systems: Fall Yes all other systems are reviewed and are negative PMFSH Past Medical History Medical History Hypertension Diabetes mellitus type 1 Social History Social History Alcohol intake: never Patient Tobacco Use Status: Never used Tobacco Advance Directives: No Advance Directives Information Provided: Yes Do you have a plan to hurt others: No Plan Physical Exam ED Vital Signs: Vital Signs - 24 hr 09/13/25 13:54 Temperature 98.3 F Pulse Rate 69 Respiratory Rate 18 Blood Pressure 160/80 H Pulse Oximetry 96 Oxygen Delivery Method Room Air BMI result Body Mass Index 46.2 Const General: cooperative, healthy appearing, comfortable, no acute distress, well developed, alert, awake and Physically active Orientation/consciousness: patient oriented x3 HENMT Head: Yes normal to inspection, Yes No palpable skull fracture present, Yes normocephalic and Yes atraumatic Eyes General: appearance normal, both eyes and all related structures Neck Neck: Yes normal visual inspection, Yes full ROM, Yes no lymphadenopathy, Yes no meningeal signs, Yes trachea midline, Yes supple, No anterior neck swelling and No tender Chest Chest palpation & inspection: normal inspection of the chest and normal palpation of entire chest wall Resp Effort & Inspection: normal respiratory effort and able to speak in complete sentences Auscultation: clear to auscultation bilaterally Cardio Jugular venous distension: no JVD Heart sounds: S1 normal heart sound present and S2 normal heart sound present GI Inspection: Yes normal to inspection Palpation (GI): Soft to palpation, not firm, nontender, no guarding and not rigid General: Yes no CVA tenderness Back/Spine/Pelvis Back: no CVA tenderness and No back tenderness Skin General skin exam: no rashes or lesions noted, elasticity normal and turgor normal Neuro General: patient oriented x3, gait normal, tone normal, moves all extremities, Normal light touch and pain sensation, no meningeal signs, no focal motor deficits, CN's II-XI intact bilaterally and normal sensation to monofilament Extrem General: Yes normal to inspection, Yes full ROM and Yes capillary refill normal Psych Appearance: grossly normal, well kempt and not disheveled Medical Decision Making Medical Decision Making MDM Narrative: 59 year male presents to ED for fall. Patient is asymptomatic. Patient was examined from head to toe and there was no signs of life-threatening etiology. No images indicated. Patient is not any blood thinner. Group Aid and patient given reassurance and explained worrisome signs and informed return to the ED immediately if patient's has been Differential Diagnosis Differential Diagnoses: The differential diagnosis associated with the presentation includes ( fracture dislocation or bleed) Admission/Observation Consideration of admission/observation: Escalation of care including admission/observation considered Independent Historian Clinical information obtained from an independent historian. History obtained from or confirmed by: Other ( patient, custodial) Prescription Management I considered prescription management with: Pain Medication Discharge Plan Discharge Clinical Impression: Fall Patient Disposition: Home, Self-Care Instructions: Fall Prevention for Older Adults (ED), How to Transfer a Person Safely (DC) Additional Instructions: recommend follow up with primary care provider. You can take [id number] Tylenol/Motrin for pain relief. return to the ED for any headache, nausea, vomiting, neck pain, chest pain, shortness of breath, abdominal pain, pain in extremities, weakness, dizziness, vomiting blood, blood in stool, blood in urine, or any other concerning symptoms. Prescriptions: No Action ibuprofen 600 mg tablet 600 mg PO Q8H PRN (Reason: pain (scale score 4-6)) Qty: 30 0RF Rx Instructions: take 1 tab every 8 hours as needed for left knee pain (DME) FreeStyle Lite Strips Strip See Rx Instructions Not Applicable DAILY Qty: 10 Rx Instructions: As directed benazepril 40 mg tablet 40 mg PO DAILY topiramate 25 mg tablet 25 mg PO BID levothyroxine 125 mcg tablet 125 mcg PO DAILY (DME) lancets [Prodigy Twist Top Lancet] 28 gauge misc See Rx Instructions .ROUTE .MEDSUPPLY Qty: 100 Rx Instructions: As directed fluoxetine 10 mg capsule 30 mg PO amlodipine 2.5 mg tablet 2.5 mg PO DAILY topiramate [Topamax] 25 mg tablet 25 mg PO DAILY mirabegron [Myrbetriq] 25 mg tablet extended release 24 hr 25 mg PO DAILY 30 Days Qty: 30 3RF Referrals: Kolby Lea MD [Primary Care Provider, Internal Medicine] - 1 day Referral Note: Fall Clinical Impression: Fall Interventions: ED Discharge Assessment Last Done: 09/13/25 15:12 Discharge Date/Time: 09/13/25 15:13 Print Language: Citizen Of [place]
[2025-09-13 15:12] VITALS: BP 160/80; PULSE 69; RESP 18; TEMP 36.8; O2SAT 96
--- OUTSIDE RECORDS SUMMARY | 2025-09-13 23:47 | XMS_ITS | Data Portability ---
Author Organization [place] - [facility] Address [address] [place] [id number] Care Team Providers Care Correctional Case Manager Name Role Phone JACOBO KYLE Primary Care Provider Assessment Encounter Date Assessment Date Assessment LastModified by Organization Details LastModified Time 03/11/2020 03/11/2020 Overview/History : 54 yo male resident of the senior care who presents for evaluation of red eyes [...] after care of this patient according to [facility]'s infection prevention protocols. Time on-scene represents total [...] tablet 2019 020 [facility], [address] [facility], [place], [address], 0 15:02:23 Zaditor 0.025 % (0.035 %) eye drops 2019 020 [facility], [address] [place], [address], 0 14:58:27 erythromyc in 5 mg/gram (0.5 %) eye ointment 2019 020 [facility]FACE [facility], [address] [facility], [place], [address], 0 14:58:21 Patient TargetsNo targets recorded. Patient Instructions Encounter Date Encounter Id Patient Instructions Last Modified By Organization Details Last Modified Time 03/11/2020 [id number] [facility] yo [email or web address] We cannot always find the exact [...] in your condition between 8am-10pm, please call [email or web address] at [phone] to help navigate your care. nevin Not [...] Recorded Respiratory rate Body temperature Oxygen saturation Heart rate Systolic And Diastolic Provider Name and Address Organization Details Last Updated DateTime 0 16 /min 97.8 [degF] 97 % 68 /min 136/80 mm[Hg] Not Available [facility] 0 14:46:17 Social History None recorded. Functional Status None recorded. Mental Status None recorded. Family History Nothing Reported. Medical History Condition Response Coronary Artery Disease N COPD N Depression N Cancer N Stroke N High Cholesterol N Kidney Disease N Diabetes Y Asthma Y Pulmonary Embolism N Hypertension Y Past Encounters Encounter ID Performer Location Encounter Start Date Encounter Closed Date Diagnosis/Indication Diagnosis SNOMED-CT Code Diagnosis ICD10 Code Diagnosis IMO Codes Diagnosis Note [id number] MICAH PARKS [facility] [address] [place] [address] 03/11/2020 14:41:00 03/13/2020 21:30:30 Conjunctivitis 7424508 H10.9 Seasonal allergy 6098415 04 J30.2 Health Concerns Section Related Observation LastModified by Organization Detai ls LastModified Time None Recorded Concern Status LastModified by Organization Details LastModified Time None Recorded Advance Directives Directive None Recorded Payers Insurance Date Sequence Insurance Name Policy Number Policy Bryant Covered Member ID Bryant Member ID Guarantor Name 03/11/2020 1 *SELF PAY* Juan Jaramillo [id number] Juan Daileyquierdo 03/11/2020 2 [place] [facility] Juan Jaramillo [id number] Juan Jaramillo 03/11/2020 1 [place] [employer] Juan Jaramillo [id number] Juan Jaramillo Notes Date Note Type Note Provider Name and Address Organization Details Recorded Time 03/11/2020 text/html Mr. Jaramillo is a 54 yo male resident of the senior care who presents for evaluation of red eyes [...] medical person . MICAH PARKS [address], [place], [address], [place] [facility] 03/11/2020 15:50:14
== END 2025-09-13 15:13 | disposition home or self-care (01) ==
PROVIDERS: Emergency Provider Student in an Organized Health Care Education/Training Program; PCP Family Medicine
DX: Z04.3 Encounter for examination and observation following other accident (principal)
CPT/HCPCS: 99282